=== PATIENT | male | born 1970 | race Two or more races ===

== ENCOUNTER 2023-02-16 11:38 | Inpatient (IN) | payer BC, MEDICAID ==
[~2023-02-16] VITALS: Ht 172.7 cm; Wt 91.5 kg
[~2023-02-16 11:38] MED LIST: NO HOME MEDS
[2023-02-16 12:06] LABS: BASOPHILS % (AUTO) 0.4 % (0-1); EOSINOPHILS % (AUTO) 0.3 % (0-6); HEMATOCRIT 53.5 % (42.0-52.0); LYMPHOCYTES # (AUTO) 1.7 X10'3 (1.1-4.8); LYMPHOCYTES % (AUTO) 21.2 % (21-51); MEAN CORPUSCULAR HEMOGLOBIN 29.7 PG (27.0-31.0); MEAN CORPUSCULAR HGB CONC 34.2 g/dL (33.0-36.5); MEAN CORPUSCULAR VOLUME 86.8 FL (78-98); MEAN PLATELET VOLUME 9.1 FL (7.4-10.4); MONOCYTES # (AUTO) 0.5 X10'3 (0-0.9); NEUTROPHILS # (AUTO) 5.6 X10'3 (1.8-7.7); NEUTROPHILS % (AUTO) 71.1 % (42-75); PLATELET COUNT 253 X10'3 (140-440); RED BLOOD COUNT 6.17 X10'6 (4.70-6.10); RED CELL DISTRIBUTION WIDTH 13.6 % (11.5-14.5); WHITE BLOOD COUNT 7.9 X10'3 (4.5-11.0)
[2023-02-16 12:08] LABS: HEMOGLOBIN 18.3 g/dl (14.0-17.9)
[2023-02-16 12:24] LABS: ALANINE AMINOTRANSFERASE 21 U/L (12-78); ALBUMIN 3.8 G/DL (3.4-5.0); ALBUMIN/GLOBULIN RATIO 1.1 (1.1-1.5); ALKALINE PHOSPHATASE 67 IU/L (46-116); ANION GAP 15 (8-16); ASPARTATE AMINO TRANSFERASE 17 U/L (10-37); BILIRUBIN,TOTAL 2.1 MG/DL (0.1-1.0); BLOOD UREA NITROGEN 12 MG/DL (7-18); BUN/CREATININE RATIO 18.5 (10.0-20.0); CALCIUM 9.1 MG/DL (8.5-10.1); CHLORIDE 102 MMOL/L (99-107); CREATININE 0.65 MG/DL (0.60-1.10); GLUCOSE 101 MG/DL (70-104); POTASSIUM 3.4 MMOL/L (3.5-5.1); SODIUM 137 MMOL/L (135-145); TOTAL CARBON DIOXIDE 20.1 MMOL/L (24-32); TOTAL PROTEIN 7.4 G/DL (6.4-8.2); eCRCL 129 ML/MIN; eGFR > 90 ML/MIN
[2023-02-16 12:32] LABS: ETHANOL < 10 MG/DL (<10); THYROID STIMULATING HORMONE 0.65 ulU/ml (0.34-4.50)
[2023-02-16] MEDS ORDERED: normal saline 1000ml 1,000 ML IV ONE (13:05)
[2023-02-16 14:00] LABS: BILIRUBIN,URINE MODERATE (Neg); CLARITY,URINE CLOUDY (Clear); COLOR,URINE YELLOW (Yellow); GLUCOSE, URINE NEGATIVE (Neg); KETONES,URINE >=80 mg/dl (Neg); LEUKOCYTE ESTERASE ,URINE NEGATIVE (Neg); NITRITES, URINE NEGATIVE (Neg); OCCULT BLOOD,URINE NEGATIVE (Neg); PROTEIN,URINE 100 mg/dl (Neg)
[2023-02-16 14:05] LABS: UA COLLECTION TYPE CLN CATCH MIDSTREAM
[2023-02-16 14:06] LABS: CAL OXALATE CRYSTALS FEW /HPF (NEGATIVE); MUCUS STRANDS MANY /LPF (Neg); SQUAMOUS EPITHELIAL CELL,UR FEW /LPF (FEW); TRANSITIONAL EPI CELLS,URINE FEW /HPF
[2023-02-16] MEDS: potassium chloride 10mEq ER tablet PO SCH (14:06)
[2023-02-16 14:07] LABS: BACTERIA,URINE FEW /HPF (Neg); RBC,URINE 0-2 /HPF (0-2); WBC,URINE 0-4 /HPF (0-4)
[2023-02-16 14:14] LABS: URINE AMPHETAMINE SCREEN NEGATIVE (Neg); URINE BARBITUATE SCREEN NEGATIVE (Neg); URINE BENZODIAZEPINES SCREEN NEGATIVE (Neg); URINE CANNABINOID SCREEN NEGATIVE (Neg); URINE COCAINE SCREEN NEGATIVE (Neg); URINE METHADONE SCREEN NEGATIVE (Neg); URINE OPIATE SCREEN NEGATIVE (Neg); URINE PHENCYCLIDINE SCREEN NEGATIVE (Neg)
[2023-02-17 08:32] LABS: BASOPHILS % (AUTO) 0.4 % (0-1); EOSINOPHILS # (AUTO) 0.1 X10'3 (0-0.9); EOSINOPHILS % (AUTO) 1.3 % (0-6); HEMATOCRIT 49.1 % (42.0-52.0); HEMOGLOBIN 16.7 g/dl (14.0-17.9); LYMPHOCYTES # (AUTO) 1.6 X10'3 (1.1-4.8); LYMPHOCYTES % (AUTO) 28.6 % (21-51); MEAN CORPUSCULAR HEMOGLOBIN 29.5 PG (27.0-31.0); MEAN CORPUSCULAR VOLUME 86.7 FL (78-98); MEAN PLATELET VOLUME 9.2 FL (7.4-10.4); MONOCYTES # (AUTO) 0.5 X10'3 (0-0.9); MONOCYTES % (AUTO) 8.2 % (2-12); NEUTROPHILS # (AUTO) 3.5 X10'3 (1.8-7.7); NEUTROPHILS % (AUTO) 61.5 % (42-75); PLATELET COUNT 180 X10'3 (140-440); RED BLOOD COUNT 5.66 X10'6 (4.70-6.10); RED CELL DISTRIBUTION WIDTH 13.9 % (11.5-14.5); WHITE BLOOD COUNT 5.7 X10'3 (4.5-11.0)
[2023-02-17 08:48] LABS: ALANINE AMINOTRANSFERASE 17 U/L (12-78); ALBUMIN 3.1 G/DL (3.4-5.0); ALKALINE PHOSPHATASE 53 IU/L (46-116); ANION GAP 7 (8-16); ASPARTATE AMINO TRANSFERASE 11 U/L (10-37); BILIRUBIN,TOTAL 1.2 MG/DL (0.1-1.0); BLOOD UREA NITROGEN 12 MG/DL (7-18); BUN/CREATININE RATIO 22.6 (10.0-20.0); CALCIUM 8.7 MG/DL (8.5-10.1); CHLORIDE 108 MMOL/L (99-107); CREATININE 0.53 MG/DL (0.60-1.10); GLUCOSE 104 MG/DL (70-104); POTASSIUM 3.3 MMOL/L (3.5-5.1); SODIUM 141 MMOL/L (135-145); TOTAL CARBON DIOXIDE 25.8 MMOL/L (24-32); TOTAL PROTEIN 6.3 G/DL (6.4-8.2); eCRCL 158 ML/MIN; eGFR > 90 ML/MIN
[2023-02-17] MEDS: potassium chloride 10mEq ER tablet PO SCH (13:05)
[2023-02-17] MEDS ORDERED: loperamide 2mg capsule PO PRN (14:55)
[2023-02-17] MEDS ORDERED: magnesium hydroxide 30ml (MOM) UD suspension PO PRN (14:55)
[2023-02-17] MEDS ORDERED: acetaminophen 325mg tablet PO PRN (14:55)
[2023-02-17] MEDS ORDERED: mag hydrox/Alum hydrox/simeth 30ml oral suspension PO PRN (14:55)
[2023-02-17 15:41] VITALS: RESP 17; O2SAT 94
[2023-02-17 16:04] VITALS: BP 133/80; PULSE 80; RESP 17; TEMP 98.4; O2SAT 94
[2023-02-17] MEDS ORDERED: ESCI5TAB17 PO (16:41)
[2023-02-17] MEDS ORDERED: LORA2TAB96 PO (16:41)
[2023-02-17] MEDS ORDERED: TRAZ-256 PO (16:41)
[2023-02-17] MEDS: LORazepam 0.5 MG tablet PO PRN (17:49)
[2023-02-17 19:00] VITALS: RESP 18; O2SAT 97
[2023-02-17] MEDS ORDERED: potassium Cl 20 mEq SR tablet PO PRN (19:40)
[2023-02-17] MEDS ORDERED: potassium Cl 40MEQ/1/2NS 520ml 520 ML IV PRN ×2 (19:40)
[2023-02-17 20:00] VITALS: BP 127/88; PULSE 77; RESP 18; TEMP 97.7; O2SAT 97
[2023-02-17] MEDS: K and/or MAG REPLACEMENT MC SCH (21:48)
[2023-02-17] MEDS: potassium Cl 20 mEq SR tablet PO PRN (21:48)
[2023-02-17] MEDS: traZODone 50mg tablet PO PRN (21:48)
[2023-02-18] MEDS: potassium Cl 20 mEq SR tablet PO PRN (04:55)
[2023-02-18 07:30] VITALS: BP 107/72; PULSE 64; RESP 20; TEMP 97.7; O2SAT 95
[2023-02-18 07:54] LABS: HEMOGLOBIN A1C 5.3 % (4.5-6.2)
[2023-02-18] MEDS: K and/or MAG REPLACEMENT MC SCH ×2 (08:00→20:00)
[2023-02-18 08:02] LABS: ALBUMIN 2.9 G/DL (3.4-5.0); ANION GAP 6 (8-16); BLOOD UREA NITROGEN 12 MG/DL (7-18); BUN/CREATININE RATIO 22.2 (10.0-20.0); CALCIUM 8.7 MG/DL (8.5-10.1); CHLORIDE 107 MMOL/L (99-107); CREATININE 0.54 MG/DL (0.60-1.10); GLUCOSE 99 MG/DL (70-104); SODIUM 139 MMOL/L (135-145); THYROID STIMULATING HORMONE 0.73 ulU/ml (0.34-4.50); TOTAL CARBON DIOXIDE 25.6 MMOL/L (24-32); eCRCL 155 ML/MIN; eGFR > 90 ML/MIN
[2023-02-18] MEDS: ESCITALOPRAM OXALATE 5 MG TABLET PO SCH (08:38)
[2023-02-18] MEDS: LORazepam 0.5 MG tablet PO PRN (13:46)
[2023-02-18 19:00] VITALS: RESP 16; O2SAT 95
[2023-02-18 19:47] VITALS: BP 108/72; PULSE 77; RESP 16; TEMP 97.7; O2SAT 95
[2023-02-18] MEDS: traZODone 50mg tablet PO PRN (20:53)
[2023-02-19 07:00] VITALS: RESP 12; O2SAT 94
[2023-02-19] MEDS: ESCITALOPRAM OXALATE 5 MG TABLET PO SCH (07:57)
[2023-02-19 08:00] VITALS: BP 120/80; PULSE 67; RESP 12; TEMP 97.6; O2SAT 94
[2023-02-19] MEDS: K and/or MAG REPLACEMENT MC SCH ×2 (08:00→19:47)
[2023-02-19] MEDS: LORazepam 0.5 MG tablet PO PRN ×2 (13:47→20:17)
[2023-02-19 20:00] VITALS: BP 111/74; PULSE 71; RESP 18; O2SAT 97
[2023-02-19] MEDS: traZODone 50mg tablet PO PRN (20:17)
[2023-02-20 07:28] VITALS: BP 107/72; PULSE 66; RESP 16; TEMP 97.9; O2SAT 95
[2023-02-20] MEDS: K and/or MAG REPLACEMENT MC SCH ×2 (08:00→20:58)
[2023-02-20] MEDS: ESCITALOPRAM OXALATE 5 MG TABLET PO SCH (08:01)
[2023-02-20] MEDS: LORazepam 1 MG tablet PO SCH ×2 (16:19→21:04)
[2023-02-20 19:00] VITALS: BP 111/73; PULSE 80; RESP 18; TEMP 98.4; O2SAT 96
[2023-02-20] MEDS: traZODone 50mg tablet PO PRN (21:04)
[2023-02-21] MEDS: LORazepam 1 MG tablet PO SCH ×3 (07:37→20:05)
[2023-02-21] MEDS: ESCITALOPRAM OXALATE 5 MG TABLET PO SCH (07:37)
[2023-02-21] MEDS: K and/or MAG REPLACEMENT MC SCH ×2 (08:00→20:00)
[2023-02-21 08:26] VITALS: BP 117/74; PULSE 70; RESP 16; TEMP 98.3; O2SAT 98
[2023-02-21 19:00] VITALS: RESP 20; O2SAT 96
[2023-02-21 20:00] VITALS: BP 103/69; PULSE 80; RESP 20; TEMP 97.8; O2SAT 96
[2023-02-21] MEDS: traZODone 50mg tablet PO PRN (20:05)
[2023-02-22] MEDS: ESCITALOPRAM OXALATE 5 MG TABLET PO SCH (07:32)
[2023-02-22] MEDS: K and/or MAG REPLACEMENT MC SCH ×2 (07:32→20:00)
[2023-02-22] MEDS: LORazepam 1 MG tablet PO SCH ×3 (07:32→19:00)
[2023-02-22 08:00] VITALS: BP 105/69; PULSE 77; RESP 16; TEMP 98; O2SAT 92
[2023-02-22 19:00] VITALS: BP 113/74; PULSE 81; RESP 14; TEMP 98; O2SAT 97
[2023-02-22] MEDS: LORazepam 0.5 MG tablet PO PRN (20:54)
[2023-02-22] MEDS: traZODone 50mg tablet PO PRN (20:56)
[2023-02-23 07:00] VITALS: RESP 16; O2SAT 94
[2023-02-23 08:00] VITALS: BP 110/71; PULSE 63; RESP 16; TEMP 98.2; O2SAT 94
[2023-02-23] MEDS: K and/or MAG REPLACEMENT MC SCH ×2 (08:00→19:37)
[2023-02-23] MEDS: LORazepam 1 MG tablet PO SCH ×3 (08:13→18:40)
[2023-02-23] MEDS: ESCITALOPRAM OXALATE 5 MG TABLET PO SCH (08:13)
[2023-02-23 19:00] VITALS: RESP 16; O2SAT 95
[2023-02-23 19:19] VITALS: BP 98/55; PULSE 80; RESP 16; TEMP 98.5; O2SAT 95
[2023-02-23] MEDS: traZODone 50mg tablet PO PRN (20:37)
[2023-02-24 07:00] VITALS: RESP 16; O2SAT 94
[2023-02-24 08:00] VITALS: BP 122/85; PULSE 70; RESP 16; TEMP 98.5; O2SAT 99
[2023-02-24] MEDS: LORazepam 1 MG tablet PO SCH ×3 (08:03→19:06)
[2023-02-24] MEDS: ESCITALOPRAM OXALATE 5 MG TABLET PO SCH (08:04)
[2023-02-24] MEDS: K and/or MAG REPLACEMENT MC SCH ×3 (08:07→19:14)
[2023-02-24] MEDS: traZODone 50mg tablet PO PRN ×2 (19:25→23:19)
[2023-02-24 19:29] VITALS: BP 106/61; PULSE 74; RESP 16; TEMP 97.9; O2SAT 97
[2023-02-25 07:00] VITALS: RESP 16; O2SAT 98
[2023-02-25 08:00] VITALS: BP 101/65; PULSE 72; RESP 16; TEMP 97.5; O2SAT 98
[2023-02-25] MEDS: K and/or MAG REPLACEMENT MC SCH ×2 (08:00→19:50)
[2023-02-25] MEDS: LORazepam 1 MG tablet PO SCH ×3 (08:42→19:50)
[2023-02-25] MEDS: ESCITALOPRAM OXALATE 5 MG TABLET PO SCH (08:42)
[2023-02-25 19:43] VITALS: BP 121/87; PULSE 82; RESP 18; TEMP 98.7; O2SAT 98
[2023-02-25] MEDS: traZODone 50mg tablet PO SCH (19:49)
[2023-02-25 20:00] VITALS: RESP 18; O2SAT 98
[2023-02-26 07:00] VITALS: RESP 16; O2SAT 95
[2023-02-26 08:00] VITALS: BP 108/63; PULSE 72; RESP 16; TEMP 98.1; O2SAT 95
[2023-02-26] MEDS: LORazepam 1 MG tablet PO SCH ×3 (08:25→19:00)
[2023-02-26] MEDS: ESCITALOPRAM OXALATE 5 MG TABLET PO SCH (08:25)
[2023-02-26 11:39] LABS: POTASSIUM 3.9 MMOL/L (3.5-5.1)
[2023-02-26 19:00] VITALS: RESP 16; O2SAT 95
[2023-02-26 19:13] VITALS: BP 106/64; PULSE 71; RESP 16; TEMP 98; O2SAT 95
[2023-02-26] MEDS: traZODone 50mg tablet PO SCH (20:05)
[2023-02-27 07:00] VITALS: RESP 16; O2SAT 96
[2023-02-27 08:00] VITALS: BP 98/60; PULSE 72; RESP 16; TEMP 98.2; O2SAT 96
[2023-02-27] MEDS: LORazepam 1 MG tablet PO SCH ×3 (08:51→19:17)
[2023-02-27] MEDS: ESCITALOPRAM OXALATE 5 MG TABLET PO SCH (08:51)
[2023-02-27 19:00] VITALS: RESP 14
[2023-02-27 20:00] VITALS: PULSE 90; RESP 14; TEMP 99; O2SAT 14
[2023-02-27] MEDS: traZODone 50mg tablet PO SCH (20:51)
[2023-02-27] MEDS: LORazepam 0.5 MG tablet PO PRN (23:04)
[2023-02-28 07:00] VITALS: RESP 12; O2SAT 92
[2023-02-28 07:36] VITALS: BP 114/75; PULSE 77; RESP 12; TEMP 98; O2SAT 92
[2023-02-28] MEDS: LORazepam 1 MG tablet PO SCH ×3 (08:12→20:14)
[2023-02-28] MEDS: ESCITALOPRAM OXALATE 5 MG TABLET PO SCH (08:12)
[2023-02-28 19:00] VITALS: BP 114/70; PULSE 74; RESP 18; TEMP 98.3; O2SAT 95; O2SAT 98
[2023-02-28] MEDS: OLANZapine 2.5MG tablet PO SCH (20:15)
[2023-02-28] MEDS: traZODone 50mg tablet PO SCH (20:15)
[2023-03-01 06:55] VITALS: BP 128/71; PULSE 66; RESP 14; TEMP 97.3; O2SAT 97
[2023-03-01 07:00] VITALS: RESP 14; O2SAT 97
[2023-03-01 08:00] VITALS: BP 128/71; PULSE 66; RESP 14; TEMP 97.3; O2SAT 97
[2023-03-01] MEDS: LORazepam 1 MG tablet PO SCH ×3 (08:18→19:51)
[2023-03-01] MEDS: ESCITALOPRAM OXALATE 5 MG TABLET PO SCH (08:19)
[2023-03-01 19:00] VITALS: RESP 14; O2SAT 95
[2023-03-01 19:59] VITALS: BP 116/72; PULSE 74; RESP 14; TEMP 98.7; O2SAT 95
[2023-03-01] MEDS: traZODone 50mg tablet PO SCH (20:15)
[2023-03-01] MEDS: OLANZapine 2.5MG tablet PO SCH (20:15)
[2023-03-02] MEDS ORDERED: traZODone 50mg tablet PO ONE ×2 (00:05→00:06)
[2023-03-02 07:00] VITALS: RESP 16; O2SAT 95
[2023-03-02] MEDS: ESCITALOPRAM OXALATE 5 MG TABLET PO SCH (07:57)
[2023-03-02] MEDS: LORazepam 1 MG tablet PO SCH ×3 (07:57→19:55)
[2023-03-02 08:00] VITALS: BP 142/66; PULSE 72; RESP 16; TEMP 98.1; O2SAT 95
[2023-03-02 19:00] VITALS: RESP 16; O2SAT 93
[2023-03-02] MEDS: olanzapine 10mg tablet PO SCH (19:55)
[2023-03-02] MEDS: traZODone 50mg tablet PO SCH (19:56)
[2023-03-02 20:00] VITALS: BP 119/73; PULSE 72; RESP 16; TEMP 98; O2SAT 93
[2023-03-03 07:00] VITALS: RESP 16; O2SAT 95
[2023-03-03 07:28] VITALS: BP 107/66; PULSE 66; RESP 14; TEMP 98.3; O2SAT 97
[2023-03-03] MEDS: ESCITALOPRAM OXALATE 5 MG TABLET PO SCH (07:43)
[2023-03-03] MEDS: LORazepam 1 MG tablet PO SCH ×3 (07:43→19:22)
[2023-03-03 19:00] VITALS: RESP 16; O2SAT 95
[2023-03-03] MEDS: traZODone 50mg tablet PO SCH (19:22)
[2023-03-03] MEDS: olanzapine 10mg tablet PO SCH (19:22)
[2023-03-03 19:39] VITALS: BP 108/69; PULSE 78; RESP 16; TEMP 98.8; O2SAT 95
[2023-03-04 07:00] VITALS: RESP 16; O2SAT 96
[2023-03-04 07:34] VITALS: BP 107/70; PULSE 80; RESP 16; TEMP 98.2; O2SAT 96
[2023-03-04] MEDS: ESCITALOPRAM OXALATE 5 MG TABLET PO SCH (08:02)
[2023-03-04] MEDS: LORazepam 1 MG tablet PO SCH ×3 (08:02→19:48)
[2023-03-04 19:00] VITALS: RESP 16; O2SAT 95
[2023-03-04] MEDS: olanzapine 10mg tablet PO SCH (19:48)
[2023-03-04] MEDS: traZODone 50mg tablet PO SCH (19:49)
[2023-03-04 20:00] VITALS: BP 107/69; PULSE 78; RESP 16; TEMP 97.6; O2SAT 95
[2023-03-05 07:30] VITALS: BP 106/67; PULSE 78; RESP 12; TEMP 97.8; O2SAT 96
[2023-03-05] MEDS: ESCITALOPRAM OXALATE 5 MG TABLET PO SCH (08:14)
[2023-03-05] MEDS: LORazepam 1 MG tablet PO SCH ×3 (08:14→19:49)
[2023-03-05 19:00] VITALS: BP 116/76; PULSE 76; RESP 16; TEMP 98.9; O2SAT 95
[2023-03-05] MEDS: olanzapine 10mg tablet PO SCH (19:49)
[2023-03-05] MEDS: traZODone 50mg tablet PO SCH (19:49)
[2023-03-06 07:30] VITALS: RESP 12; O2SAT 98
[2023-03-06] MEDS: ESCITALOPRAM OXALATE 5 MG TABLET PO SCH (07:59)
[2023-03-06] MEDS: LORazepam 1 MG tablet PO SCH ×3 (07:59→19:06)
[2023-03-06 08:00] VITALS: BP 111/68; PULSE 76; RESP 12; TEMP 98; O2SAT 96
[2023-03-06 19:30] VITALS: BP 112/72; PULSE 95; RESP 14; TEMP 99.2; O2SAT 100; O2SAT 96
[2023-03-06] MEDS: traZODone 50mg tablet PO SCH (20:23)
[2023-03-06] MEDS: olanzapine 10mg tablet PO SCH (20:23)
[2023-03-07 07:00] VITALS: RESP 12; O2SAT 98
[2023-03-07 08:00] VITALS: BP 103/65; PULSE 81; RESP 14; TEMP 98.3; O2SAT 97
[2023-03-07] MEDS: venlafaxine XR 75mg capsule (Q24H) PO SCH (08:34)
[2023-03-07] MEDS: ESCITALOPRAM OXALATE 5 MG TABLET PO SCH (08:34)
[2023-03-07] MEDS: LORazepam 1 MG tablet PO SCH ×3 (08:37→20:42)
[2023-03-07 19:00] VITALS: BP 116/71; PULSE 87; RESP 16; TEMP 98.6; O2SAT 94
[2023-03-07] MEDS: olanzapine 10mg tablet PO SCH (20:41)
[2023-03-07] MEDS: traZODone 50mg tablet PO SCH (20:41)
[2023-03-08 07:00] VITALS: RESP 14; O2SAT 94
[2023-03-08 08:00] VITALS: BP 105/60; PULSE 76; RESP 14; TEMP 98.5; O2SAT 94
[2023-03-08] MEDS: LORazepam 1 MG tablet PO SCH ×3 (08:16→20:05)
[2023-03-08] MEDS: ESCITALOPRAM OXALATE 5 MG TABLET PO SCH (08:16)
[2023-03-08] MEDS: venlafaxine XR 75mg capsule (Q24H) PO SCH (08:16)
[2023-03-08 19:00] VITALS: RESP 16; O2SAT 98
[2023-03-08 20:00] VITALS: BP 121/92; PULSE 89; RESP 16; TEMP 98.7; O2SAT 98
[2023-03-08] MEDS: traZODone 50mg tablet PO SCH (20:05)
[2023-03-08] MEDS: olanzapine 10mg tablet PO SCH (20:05)
[2023-03-09 07:00] VITALS: RESP 16; O2SAT 96
[2023-03-09 08:00] VITALS: BP 99/60; PULSE 75; RESP 16; TEMP 98.7; O2SAT 96
[2023-03-09] MEDS ORDERED: ESCITALOPRAM OXALATE 5 MG TABLET PO SCH (08:00)
[2023-03-09] MEDS: LORazepam 1 MG tablet PO SCH ×3 (08:29→19:43)
[2023-03-09] MEDS: venlafaxine XR 75mg capsule (Q24H) PO SCH (08:29)
[2023-03-09 19:41] VITALS: BP 114/82; PULSE 102; RESP 16; TEMP 97.1; O2SAT 99
[2023-03-09 19:50] VITALS: RESP 16; O2SAT 99
[2023-03-09] MEDS: traZODone 50mg tablet PO SCH (20:08)
[2023-03-09] MEDS: olanzapine 10mg tablet PO SCH (20:08)
[2023-03-10 07:00] VITALS: RESP 18; O2SAT 96
[2023-03-10] MEDS ORDERED: ESCITALOPRAM 10 mg tablet 10 MG TABLET PO SCH (07:53)
[2023-03-10 08:00] VITALS: BP 100/68; PULSE 71; RESP 18; TEMP 96.9; O2SAT 96
[2023-03-10] MEDS: venlafaxine XR 75mg capsule (Q24H) PO SCH (08:12)
[2023-03-10] MEDS: LORazepam 1 MG tablet PO SCH ×3 (08:12→20:07)
[2023-03-10] MEDS: ESCITALOPRAM 10 mg tablet 10 MG TABLET PO SCH (08:14)
[2023-03-10 19:20] VITALS: RESP 16
[2023-03-10 19:30] VITALS: BP 115/79; PULSE 77; RESP 16; TEMP 98.4; O2SAT 96
[2023-03-10] MEDS: olanzapine 10mg tablet PO SCH (20:08)
[2023-03-10] MEDS: traZODone 50mg tablet PO SCH (20:08)
[2023-03-11 07:00] VITALS: BP 107/66; PULSE 77; RESP 14; TEMP 98.3; O2SAT 95
[2023-03-11] MEDS: venlafaxine XR 75mg capsule (Q24H) PO SCH (08:34)
[2023-03-11] MEDS: LORazepam 1 MG tablet PO SCH ×3 (08:34→20:25)
[2023-03-11] MEDS: ESCITALOPRAM 10 mg tablet 10 MG TABLET PO SCH (08:35)
[2023-03-11 19:40] VITALS: BP 125/79; PULSE 101; RESP 16; TEMP 98.1; O2SAT 98
[2023-03-11] MEDS: olanzapine 10mg tablet PO SCH (20:25)
[2023-03-11] MEDS: traZODone 50mg tablet PO SCH (20:25)
[2023-03-12 07:00] VITALS: RESP 16; O2SAT 95
[2023-03-12 08:00] VITALS: BP 107/60; PULSE 74; RESP 16; TEMP 98.4; O2SAT 95
[2023-03-12] MEDS: venlafaxine XR 75mg capsule (Q24H) PO SCH (08:23)
[2023-03-12] MEDS: ESCITALOPRAM 10 mg tablet 10 MG TABLET PO SCH (08:23)
[2023-03-12] MEDS: LORazepam 1 MG tablet PO SCH ×3 (08:23→19:16)
[2023-03-12 20:00] VITALS: BP 109/85; PULSE 113; RESP 16; TEMP 98.9; O2SAT 98
[2023-03-12] MEDS: olanzapine 10mg tablet PO SCH (20:52)
[2023-03-12] MEDS: traZODone 50mg tablet PO SCH (20:52)
[2023-03-13 07:30] VITALS: RESP 16; O2SAT 97
[2023-03-13 07:50] VITALS: BP 112/69; PULSE 64; RESP 16; TEMP 99.5
[2023-03-13] MEDS ORDERED: LORazepam 1 MG tablet PO SCH (08:00)
[2023-03-13] MEDS: venlafaxine XR 75mg capsule (Q24H) PO SCH (08:31)
[2023-03-13] MEDS: LORazepam 0.5 MG tablet PO SCH ×2 (13:07→20:28)
[2023-03-13 19:00] VITALS: RESP 16; O2SAT 81
[2023-03-13 20:00] VITALS: BP 122/82; PULSE 81; RESP 16; TEMP 98.9
[2023-03-13] MEDS: traZODone 50mg tablet PO SCH (20:29)
[2023-03-13] MEDS: olanzapine 10mg tablet PO SCH (20:29)
[2023-03-14 07:30] VITALS: BP 130/92; PULSE 100; RESP 14; TEMP 98.3; O2SAT 96
[2023-03-14] MEDS: LORazepam 0.5 MG tablet PO SCH ×3 (08:09→20:06)
[2023-03-14] MEDS: venlafaxine XR 75mg capsule (Q24H) PO SCH (08:10)
[2023-03-14] MEDS: LORazepam 0.5 MG tablet PO PRN (16:18)
[2023-03-14 19:00] VITALS: RESP 24; O2SAT 98
[2023-03-14 20:00] VITALS: BP 128/93; PULSE 103; RESP 14; TEMP 98.7; O2SAT 96
[2023-03-14] MEDS: olanzapine 10mg tablet PO SCH (20:03)
[2023-03-14] MEDS: traZODone 50mg tablet PO SCH (20:04)
[2023-03-15 07:00] VITALS: RESP 12; O2SAT 94
[2023-03-15] MEDS: venlafaxine XR 75mg capsule (Q24H) PO SCH (07:51)
[2023-03-15] MEDS: LORazepam 0.5 MG tablet PO SCH ×3 (07:51→20:51)
[2023-03-15 08:00] VITALS: BP 122/73; PULSE 87; RESP 12; TEMP 98.7; O2SAT 94
[2023-03-15] MEDS: LORazepam 0.5 MG tablet PO PRN (12:15)
[2023-03-15 19:00] VITALS: BP 120/73; PULSE 84; RESP 14; TEMP 99.3; O2SAT 94
[2023-03-15] MEDS: traZODone 50mg tablet PO SCH (20:52)
[2023-03-15] MEDS: olanzapine 10mg tablet PO SCH (20:52)
[2023-03-16 07:00] VITALS: RESP 16; O2SAT 93
[2023-03-16 08:00] VITALS: BP 93/61; PULSE 83; RESP 16; TEMP 97.8; O2SAT 93
[2023-03-16] MEDS: venlafaxine XR 37.5mg cap (Q24H) PO SCH (08:04)
[2023-03-16] MEDS: LORazepam 0.5 MG tablet PO SCH ×3 (08:04→19:42)
[2023-03-16] MEDS: LORazepam 0.5 MG tablet PO PRN (10:01)
[2023-03-16] MEDS ORDERED: LORazepam 0.5 MG tablet PO ONE (14:35)
[2023-03-16 19:00] VITALS: RESP 18; O2SAT 96
[2023-03-16 20:00] VITALS: BP 123/8; PULSE 91; RESP 18; TEMP 98.5
[2023-03-16] MEDS: olanzapine 10mg tablet PO SCH (20:32)
[2023-03-16] MEDS: traZODone 50mg tablet PO SCH (20:32)
[2023-03-17 07:00] VITALS: RESP 18; O2SAT 96
[2023-03-17] MEDS: LORazepam 0.5 MG tablet PO SCH ×3 (07:59→20:05)
[2023-03-17] MEDS: venlafaxine XR 37.5mg cap (Q24H) PO SCH (07:59)
[2023-03-17 08:00] VITALS: BP 107/64; PULSE 78; RESP 18; TEMP 98; O2SAT 96
[2023-03-17] MEDS ORDERED: venlafaxine XR 37.5mg cap (Q24H) PO STA (11:06)
[2023-03-17] MEDS: LORazepam 0.5 MG tablet PO PRN (11:34)
[2023-03-17 19:00] VITALS: BP 134/97; PULSE 99; RESP 18; TEMP 98.3; O2SAT 94
[2023-03-17] MEDS: olanzapine 10mg tablet PO SCH (20:05)
[2023-03-17] MEDS: traZODone 50mg tablet PO SCH (20:06)
[2023-03-18 07:00] VITALS: RESP 16; O2SAT 96
[2023-03-18 07:32] VITALS: BP 112/70; PULSE 78; RESP 16; TEMP 98.6; O2SAT 96
[2023-03-18] MEDS: LORazepam 0.5 MG tablet PO SCH ×3 (07:58→19:54)
[2023-03-18] MEDS: venlafaxine XR 75mg capsule (Q24H) PO SCH (07:59)
[2023-03-18 19:00] VITALS: RESP 16; O2SAT 94
[2023-03-18 19:18] VITALS: BP 122/79; PULSE 78; RESP 16; TEMP 98.8; O2SAT 94
[2023-03-18] MEDS: OLANZAPINE 5 MG TABLET PO SCH (19:54)
[2023-03-18] MEDS: traZODone 50mg tablet PO SCH (19:55)
[2023-03-19 07:00] VITALS: RESP 16; O2SAT 93
[2023-03-19] MEDS: LORazepam 0.5 MG tablet PO SCH ×3 (07:41→20:02)
[2023-03-19] MEDS: venlafaxine XR 75mg capsule (Q24H) PO SCH (07:41)
[2023-03-19 08:00] VITALS: BP 108/59; PULSE 71; RESP 16; TEMP 98.5; O2SAT 93
[2023-03-19] MEDS: LORazepam 0.5 MG tablet PO PRN (08:13)
[2023-03-19 19:15] VITALS: BP 128/90; PULSE 78; RESP 16; TEMP 98.3; O2SAT 96
[2023-03-19] MEDS: OLANZAPINE 5 MG TABLET PO SCH (20:01)
[2023-03-19] MEDS: traZODone 50mg tablet PO SCH (20:01)
[2023-03-20 07:00] VITALS: RESP 16; O2SAT 93
[2023-03-20] MEDS: LORazepam 0.5 MG tablet PO SCH ×3 (07:52→19:00)
[2023-03-20] MEDS: venlafaxine XR 75mg capsule (Q24H) PO SCH (07:52)
[2023-03-20 08:14] VITALS: BP 105/67; PULSE 74; RESP 14; TEMP 98.5; O2SAT 93
[2023-03-20 19:30] VITALS: BP 125/96; PULSE 94; RESP 14; TEMP 98.3; O2SAT 94
[2023-03-20] MEDS: OLANZAPINE 5 MG TABLET PO SCH (20:14)
[2023-03-20] MEDS: traZODone 50mg tablet PO SCH (20:14)
[2023-03-21] MEDS: LORazepam 0.5 MG tablet PO SCH ×3 (07:48→18:53)
[2023-03-21] MEDS: venlafaxine XR 75mg capsule (Q24H) PO SCH (07:49)
[2023-03-21 08:00] VITALS: BP 114/75; PULSE 75; RESP 12; TEMP 97.8; O2SAT 94
[2023-03-21 19:30] VITALS: BP 122/76; PULSE 93; RESP 16; TEMP 98.8; O2SAT 94
[2023-03-21] MEDS: traZODone 50mg tablet PO SCH (20:19)
[2023-03-21] MEDS: OLANZAPINE 5 MG TABLET PO SCH (20:19)
[2023-03-22 08:00] VITALS: BP 123/78; PULSE 76; RESP 18; TEMP 97.5; O2SAT 95
[2023-03-22] MEDS: LORazepam 0.5 MG tablet PO SCH ×3 (08:22→19:56)
[2023-03-22] MEDS: venlafaxine XR 75mg capsule (Q24H) PO SCH (08:22)
[2023-03-22 19:00] VITALS: RESP 17; O2SAT 95
[2023-03-22] MEDS: OLANZAPINE 5 MG TABLET PO SCH (19:56)
[2023-03-22] MEDS: traZODone 50mg tablet PO SCH (19:56)
[2023-03-22 20:00] VITALS: BP 128/75; PULSE 78; RESP 17; TEMP 98.4; O2SAT 95
[2023-03-23 07:00] VITALS: RESP 14; O2SAT 95
[2023-03-23] MEDS: venlafaxine XR 75mg capsule (Q24H) PO SCH (07:33)
[2023-03-23] MEDS: LORazepam 0.5 MG tablet PO SCH ×3 (07:34→20:14)
[2023-03-23 08:00] VITALS: PULSE 75; RESP 14; TEMP 98.6; O2SAT 95
[2023-03-23] MEDS: LORazepam 0.5 MG tablet PO PRN (11:29)
[2023-03-23 19:00] VITALS: RESP 14; O2SAT 95
[2023-03-23 20:00] VITALS: BP 113/72; PULSE 79; RESP 14; TEMP 98.4; O2SAT 95
[2023-03-23] MEDS: traZODone 50mg tablet PO SCH (20:14)
[2023-03-23] MEDS: OLANZAPINE 5 MG TABLET PO SCH (20:14)
[2023-03-24 07:00] VITALS: RESP 14; O2SAT 93
[2023-03-24] MEDS: venlafaxine XR 75mg capsule (Q24H) PO SCH (07:50)
[2023-03-24] MEDS: LORazepam 0.5 MG tablet PO SCH ×3 (07:50→20:16)
[2023-03-24 08:03] VITALS: BP 104/62; PULSE 77; RESP 14; TEMP 98.1; O2SAT 93
[2023-03-24 19:00] VITALS: RESP 18; O2SAT 95
[2023-03-24 20:00] VITALS: BP 135/93; PULSE 112; RESP 18; TEMP 97.8; O2SAT 95
[2023-03-24] MEDS: OLANZAPINE 5 MG TABLET PO SCH (20:16)
[2023-03-24] MEDS: traZODone 50mg tablet PO SCH (20:17)
[2023-03-24] MEDS ORDERED: traZODone 50mg tablet PO SCH (21:00)
[2023-03-25 07:00] VITALS: RESP 16; O2SAT 93
[2023-03-25] MEDS: LORazepam 0.5 MG tablet PO SCH ×3 (07:21→20:08)
[2023-03-25] MEDS: venlafaxine XR 75mg capsule (Q24H) PO SCH (07:22)
[2023-03-25 08:00] VITALS: BP 107/71; PULSE 66; RESP 16; TEMP 97.8; O2SAT 93
[2023-03-25 19:49] VITALS: BP 136/93; PULSE 115; RESP 18; TEMP 98.3; O2SAT 95
[2023-03-25 19:50] VITALS: RESP 18; O2SAT 95
[2023-03-25] MEDS: OLANZAPINE 5 MG TABLET PO SCH (20:09)
[2023-03-25] MEDS: traZODone 50mg tablet PO SCH (20:09)
[2023-03-26 08:00] VITALS: BP 98/64; PULSE 77; RESP 12; TEMP 98.2; O2SAT 95
[2023-03-26] MEDS: LORazepam 0.5 MG tablet PO SCH ×3 (08:25→20:34)
[2023-03-26] MEDS: venlafaxine XR 75mg capsule (Q24H) PO SCH (08:25)
[2023-03-26 19:00] VITALS: BP 125/88; PULSE 102; RESP 18; TEMP 97.5; O2SAT 96
[2023-03-26] MEDS: OLANZAPINE 5 MG TABLET PO SCH (20:34)
[2023-03-26] MEDS: traZODone 50mg tablet PO SCH (20:34)
[2023-03-26 21:00] VITALS: PULSE 86
[2023-03-27] MEDS: LORazepam 0.5 MG tablet PO SCH ×3 (07:52→20:31)
[2023-03-27] MEDS: venlafaxine XR 75mg capsule (Q24H) PO SCH (07:52)
[2023-03-27 09:12] VITALS: BP 113/62; PULSE 78; RESP 16; TEMP 98.6; O2SAT 94
[2023-03-27 19:37] VITALS: BP 141/96; PULSE 89; RESP 16; TEMP 99.2; O2SAT 97
[2023-03-27] MEDS: traZODone 50mg tablet PO SCH (20:30)
[2023-03-27] MEDS: OLANZAPINE 5 MG TABLET PO SCH (20:30)
[2023-03-28] MEDS: venlafaxine XR 75mg capsule (Q24H) PO SCH (07:47)
[2023-03-28] MEDS: LORazepam 0.5 MG tablet PO SCH ×3 (07:47→20:05)
[2023-03-28 08:00] VITALS: BP 107/67; PULSE 87; RESP 16; TEMP 98.4; O2SAT 97
[2023-03-28 19:35] VITALS: BP 134/81; PULSE 94; RESP 16; TEMP 98.5; O2SAT 96
[2023-03-28] MEDS: OLANZAPINE 5 MG TABLET PO SCH (20:05)
[2023-03-28] MEDS: traZODone 50mg tablet PO SCH (20:05)
[2023-03-29 08:00] VITALS: BP 107/67; PULSE 69; RESP 12; TEMP 98.7; O2SAT 94
[2023-03-29] MEDS: venlafaxine XR 75mg capsule (Q24H) PO SCH (08:08)
[2023-03-29] MEDS: LORazepam 0.5 MG tablet PO SCH ×3 (08:09→20:05)
[2023-03-29] MEDS: LORazepam 0.5 MG tablet PO PRN (11:47)
[2023-03-29 19:00] VITALS: BP 141/99; PULSE 99; RESP 17; TEMP 97.3; O2SAT 99
[2023-03-29] MEDS: OLANZAPINE 5 MG TABLET PO SCH (20:05)
[2023-03-29] MEDS: traZODone 50mg tablet PO SCH (20:06)
[2023-03-30 07:00] VITALS: RESP 14; O2SAT 95
[2023-03-30 08:00] VITALS: BP 113/71; PULSE 72; RESP 14; TEMP 97.9; O2SAT 95
[2023-03-30] MEDS: venlafaxine XR 75mg capsule (Q24H) PO SCH (08:14)
[2023-03-30] MEDS: LORazepam 0.5 MG tablet PO SCH ×3 (08:16→19:22)
[2023-03-30 19:00] VITALS: RESP 17; O2SAT 97
[2023-03-30 19:11] VITALS: BP 142/94; PULSE 86; RESP 17; TEMP 97.2; O2SAT 97
[2023-03-30] MEDS: OLANZAPINE 5 MG TABLET PO SCH (20:07)
[2023-03-30] MEDS: traZODone 50mg tablet PO SCH (20:07)
[2023-03-31 07:00] VITALS: RESP 14; O2SAT 94
[2023-03-31 07:53] VITALS: BP 115/73; PULSE 76; RESP 14; TEMP 98.8; O2SAT 94
[2023-03-31] MEDS: LORazepam 0.5 MG tablet PO SCH ×3 (08:10→19:00)
[2023-03-31] MEDS: venlafaxine XR 75mg capsule (Q24H) PO SCH (08:10)
[2023-03-31 19:48] VITALS: BP 130/85; PULSE 116; RESP 18; TEMP 98.8; O2SAT 96
[2023-03-31] MEDS: OLANZAPINE 5 MG TABLET PO SCH (20:25)
[2023-03-31] MEDS: traZODone 50mg tablet PO SCH (20:25)
[2023-04-01 07:00] VITALS: RESP 14; O2SAT 98
[2023-04-01] MEDS: venlafaxine XR 75mg capsule (Q24H) PO SCH (07:37)
[2023-04-01] MEDS: LORazepam 0.5 MG tablet PO SCH ×3 (07:37→19:12)
[2023-04-01 08:00] VITALS: BP 122/74; PULSE 100; RESP 14; TEMP 98.4; O2SAT 95
[2023-04-01] MEDS: acetaminophen 325mg tablet PO PRN (09:26)
[2023-04-01 20:00] VITALS: BP 127/76; PULSE 88; RESP 16; TEMP 99.7; O2SAT 95
[2023-04-01] MEDS: traZODone 50mg tablet PO SCH (20:03)
[2023-04-01] MEDS: OLANZAPINE 5 MG TABLET PO SCH (20:07)
[2023-04-02 07:00] VITALS: RESP 12; O2SAT 95
[2023-04-02] MEDS: LORazepam 0.5 MG tablet PO SCH ×3 (07:37→19:03)
[2023-04-02] MEDS: venlafaxine XR 75mg capsule (Q24H) PO SCH (07:37)
[2023-04-02 08:00] VITALS: BP 122/81; PULSE 92; RESP 12; TEMP 98.8; O2SAT 95
[2023-04-02] MEDS: acetaminophen 325mg tablet PO PRN (14:34)
[2023-04-02 19:54] VITALS: BP 121/79; PULSE 91; RESP 14; TEMP 98; O2SAT 95
[2023-04-02] MEDS: traZODone 50mg tablet PO SCH (20:10)
[2023-04-02] MEDS: OLANZAPINE 5 MG TABLET PO SCH (20:11)
[2023-04-03 07:03] VITALS: RESP 12; O2SAT 95
[2023-04-03] MEDS: LORazepam 0.5 MG tablet PO SCH ×3 (07:47→19:30)
[2023-04-03] MEDS: venlafaxine XR 75mg capsule (Q24H) PO SCH (07:47)
[2023-04-03 08:53] VITALS: BP 112/66; PULSE 104; RESP 16; TEMP 98.2; O2SAT 94
[2023-04-03 19:30] VITALS: BP 105/68; PULSE 95; RESP 16; TEMP 98.8; O2SAT 95
[2023-04-03] MEDS: traZODone 50mg tablet PO SCH (20:15)
[2023-04-03] MEDS: OLANZAPINE 5 MG TABLET PO SCH (20:15)
[2023-04-04 07:21] VITALS: RESP 12; O2SAT 95
[2023-04-04 08:00] VITALS: BP 117/80; PULSE 98; RESP 16; TEMP 97.7; O2SAT 94
[2023-04-04] MEDS: venlafaxine XR 75mg capsule (Q24H) PO SCH (08:46)
[2023-04-04] MEDS: LORazepam 0.5 MG tablet PO SCH ×3 (08:46→19:12)
[2023-04-04 19:10] VITALS: BP 108/64; PULSE 81; RESP 17; TEMP 98; O2SAT 96
[2023-04-04 19:44] VITALS: RESP 17; O2SAT 96
[2023-04-04] MEDS: traZODone 50mg tablet PO SCH (20:00)
[2023-04-04] MEDS: OLANZAPINE 5 MG TABLET PO SCH (20:00)
[2023-04-05 07:10] VITALS: RESP 12; O2SAT 95
[2023-04-05 07:30] VITALS: BP 110/78; PULSE 85; RESP 14; TEMP 98; O2SAT 96
[2023-04-05] MEDS: venlafaxine XR 75mg capsule (Q24H) PO SCH (08:09)
[2023-04-05] MEDS: LORazepam 0.5 MG tablet PO SCH ×3 (08:09→19:45)
[2023-04-05 19:22] VITALS: BP 118/79; PULSE 84; RESP 18; TEMP 98.7; O2SAT 94
[2023-04-05] MEDS: OLANZAPINE 5 MG TABLET PO SCH (19:45)
[2023-04-05] MEDS: traZODone 50mg tablet PO SCH (19:45)
[2023-04-06 07:00] VITALS: RESP 14; O2SAT 95
[2023-04-06] MEDS: venlafaxine XR 75mg capsule (Q24H) PO SCH (07:53)
[2023-04-06] MEDS: LORazepam 0.5 MG tablet PO SCH ×3 (07:53→19:13)
[2023-04-06 08:00] VITALS: BP 85/47; PULSE 80; RESP 14; TEMP 97.9; O2SAT 95
[2023-04-06 19:35] VITALS: RESP 18; O2SAT 93
[2023-04-06 20:00] VITALS: BP 105/63; PULSE 80; RESP 18; TEMP 97.5; O2SAT 93
[2023-04-06] MEDS: traZODone 50mg tablet PO SCH (20:02)
[2023-04-06] MEDS: OLANZAPINE 5 MG TABLET PO SCH (20:02)
[2023-04-06] MEDS: LORazepam 0.5 MG tablet PO PRN (23:19)
[2023-04-07 07:00] VITALS: RESP 16; O2SAT 95
[2023-04-07 08:00] VITALS: BP 109/74; PULSE 88; RESP 16; TEMP 98.1; O2SAT 95
[2023-04-07] MEDS: venlafaxine XR 75mg capsule (Q24H) PO SCH (08:09)
[2023-04-07] MEDS: LORazepam 0.5 MG tablet PO SCH ×3 (08:09→20:14)
[2023-04-07 19:00] VITALS: RESP 16; O2SAT 94
[2023-04-07 20:00] VITALS: BP 115/73; PULSE 89; RESP 16; TEMP 98.1; O2SAT 94
[2023-04-07] MEDS: traZODone 50mg tablet PO SCH (20:14)
[2023-04-07] MEDS: OLANZAPINE 5 MG TABLET PO SCH (20:14)
[2023-04-08 07:00] VITALS: RESP 14; O2SAT 97
[2023-04-08 08:00] VITALS: BP 103/67; PULSE 85; RESP 14; TEMP 97.9; O2SAT 97
[2023-04-08] MEDS: LORazepam 0.5 MG tablet PO SCH ×3 (08:49→19:17)
[2023-04-08] MEDS: venlafaxine XR 75mg capsule (Q24H) PO SCH (08:50)
[2023-04-08 19:00] VITALS: RESP 18; O2SAT 96
[2023-04-08 20:00] VITALS: BP 123/83; PULSE 71; RESP 18; TEMP 98.2; O2SAT 96
[2023-04-08] MEDS: traZODone 50mg tablet PO SCH (20:13)
[2023-04-08] MEDS: OLANZAPINE 5 MG TABLET PO SCH (20:13)
[2023-04-09 07:00] VITALS: RESP 16; O2SAT 95
[2023-04-09 08:00] VITALS: BP 116/73; PULSE 81; RESP 16; TEMP 98.2; O2SAT 94
[2023-04-09] MEDS: LORazepam 0.5 MG tablet PO SCH ×3 (08:17→19:59)
[2023-04-09] MEDS: venlafaxine XR 75mg capsule (Q24H) PO SCH (08:17)
[2023-04-09] MEDS: methylphenidate 5mg tablet PO SCH (08:17)
[2023-04-09 20:00] VITALS: BP 123/67; PULSE 81; RESP 14; TEMP 98.8; O2SAT 95
[2023-04-09] MEDS: traZODone 50mg tablet PO SCH (20:00)
[2023-04-09] MEDS: OLANZAPINE 5 MG TABLET PO SCH (20:00)
[2023-04-10 07:00] VITALS: RESP 16; O2SAT 95
[2023-04-10 08:00] VITALS: BP 115/69; PULSE 73; RESP 16; TEMP 97.9; O2SAT 16
[2023-04-10] MEDS: venlafaxine XR 75mg capsule (Q24H) PO SCH (08:04)
[2023-04-10] MEDS: methylphenidate 5mg tablet PO SCH (08:04)
[2023-04-10] MEDS: LORazepam 0.5 MG tablet PO SCH ×3 (08:05→20:07)
[2023-04-10 20:00] VITALS: BP 124/80; PULSE 77; RESP 15; TEMP 97.8; O2SAT 94
[2023-04-10] MEDS: traZODone 50mg tablet PO SCH (20:07)
[2023-04-10] MEDS: OLANZAPINE 5 MG TABLET PO SCH (20:07)
[2023-04-11 07:00] VITALS: RESP 16; O2SAT 92
[2023-04-11 08:00] VITALS: BP 114/73; PULSE 70; RESP 16; TEMP 98.3; O2SAT 92
[2023-04-11] MEDS: LORazepam 0.5 MG tablet PO SCH ×3 (08:01→19:57)
[2023-04-11] MEDS: venlafaxine XR 75mg capsule (Q24H) PO SCH (08:01)
[2023-04-11] MEDS: methylphenidate 5mg tablet PO SCH (08:01)
[2023-04-11 19:28] VITALS: BP 118/78; PULSE 91; RESP 14; TEMP 99.2; O2SAT 94
[2023-04-11] MEDS: OLANZAPINE 5 MG TABLET PO SCH (19:57)
[2023-04-11] MEDS: traZODone 50mg tablet PO SCH (19:57)
[2023-04-12 07:00] VITALS: RESP 12; O2SAT 95
[2023-04-12] MEDS: venlafaxine XR 75mg capsule (Q24H) PO SCH (08:04)
[2023-04-12] MEDS: LORazepam 0.5 MG tablet PO SCH ×3 (08:04→19:55)
[2023-04-12] MEDS: methylphenidate 5mg tablet PO SCH (08:04)
[2023-04-12 08:26] VITALS: BP 116/74; PULSE 88; RESP 12; TEMP 98.7; O2SAT 95
[2023-04-12 19:30] VITALS: BP 114/81; PULSE 74; RESP 16; TEMP 99; O2SAT 93
[2023-04-12] MEDS: OLANZAPINE 5 MG TABLET PO SCH (19:56)
[2023-04-12] MEDS: traZODone 50mg tablet PO SCH (19:56)
[2023-04-13 07:30] VITALS: RESP 18; O2SAT 92
[2023-04-13 08:00] VITALS: BP 110/69; PULSE 78; RESP 18; TEMP 98.5; O2SAT 92
[2023-04-13] MEDS: LORazepam 0.5 MG tablet PO SCH ×3 (08:07→20:02)
[2023-04-13] MEDS: venlafaxine XR 75mg capsule (Q24H) PO SCH (08:07)
[2023-04-13] MEDS: methylphenidate 5mg tablet PO SCH (08:07)
[2023-04-13] MEDS ORDERED: methylphenidate 5mg tablet PO ONE (09:20)
[2023-04-13 19:36] VITALS: BP 123/80; PULSE 78; RESP 16; TEMP 98.9; O2SAT 97
[2023-04-13] MEDS: OLANZAPINE 5 MG TABLET PO SCH (20:03)
[2023-04-13] MEDS: traZODone 50mg tablet PO SCH (20:03)
[2023-04-14 07:30] VITALS: BP 104/68; PULSE 80; RESP 16; TEMP 98.4; O2SAT 95
[2023-04-14] MEDS: LORazepam 0.5 MG tablet PO SCH ×3 (08:32→20:16)
[2023-04-14] MEDS: methylphenidate 5mg tablet PO SCH (08:32)
[2023-04-14] MEDS: venlafaxine XR 75mg capsule (Q24H) PO SCH (08:32)
[2023-04-14 19:45] VITALS: BP 130/85; PULSE 83; RESP 16; TEMP 99; O2SAT 99
[2023-04-14] MEDS: traZODone 50mg tablet PO SCH (20:16)
[2023-04-14] MEDS: OLANZAPINE 5 MG TABLET PO SCH (20:16)
[2023-04-15 07:30] VITALS: BP 103/63; PULSE 83; RESP 14; TEMP 98.4; O2SAT 96
[2023-04-15] MEDS: LORazepam 0.5 MG tablet PO SCH ×3 (08:10→19:11)
[2023-04-15] MEDS: venlafaxine XR 75mg capsule (Q24H) PO SCH (08:10)
[2023-04-15] MEDS: methylphenidate 5mg tablet PO SCH (08:10)
[2023-04-15 19:20] VITALS: BP 116/84; PULSE 95; RESP 16; TEMP 98.4; O2SAT 95
[2023-04-15] MEDS: traZODone 50mg tablet PO SCH (20:38)
[2023-04-15] MEDS: OLANZAPINE 5 MG TABLET PO SCH (20:38)
[2023-04-16 07:00] VITALS: RESP 16; O2SAT 95
[2023-04-16 08:00] VITALS: BP 105/64; PULSE 86; RESP 16; TEMP 98.1; O2SAT 95
[2023-04-16] MEDS: LORazepam 0.5 MG tablet PO SCH ×3 (08:47→20:11)
[2023-04-16] MEDS: methylphenidate 5mg tablet PO SCH (08:47)
[2023-04-16] MEDS: venlafaxine XR 75mg capsule (Q24H) PO SCH (08:47)
[2023-04-16 20:00] VITALS: BP 135/95; PULSE 88; RESP 16; TEMP 98; O2SAT 96
[2023-04-16] MEDS: OLANZAPINE 5 MG TABLET PO SCH (20:11)
[2023-04-16] MEDS: traZODone 50mg tablet PO SCH (20:11)
[2023-04-17 07:00] VITALS: RESP 16; O2SAT 95
[2023-04-17 07:45] VITALS: BP 109/69; PULSE 94; RESP 16; TEMP 98.3; O2SAT 95
[2023-04-17] MEDS: methylphenidate 5mg tablet PO SCH (07:57)
[2023-04-17] MEDS: venlafaxine XR 75mg capsule (Q24H) PO SCH (07:57)
[2023-04-17] MEDS: LORazepam 0.5 MG tablet PO SCH ×3 (07:57→20:08)
[2023-04-17 19:00] VITALS: RESP 15; O2SAT 98
[2023-04-17 20:00] VITALS: BP 122/77; PULSE 78; RESP 15; TEMP 98.2; O2SAT 95
[2023-04-17] MEDS: traZODone 50mg tablet PO SCH (20:08)
[2023-04-18 07:00] VITALS: RESP 15; O2SAT 93
[2023-04-18 07:28] VITALS: BP 114/65; PULSE 85; RESP 15; TEMP 98.9; O2SAT 93
[2023-04-18] MEDS: LORazepam 0.5 MG tablet PO SCH ×3 (08:14→19:46)
[2023-04-18] MEDS: methylphenidate 5mg tablet PO SCH (08:15)
[2023-04-18] MEDS: venlafaxine XR 75mg capsule (Q24H) PO SCH (08:15)
[2023-04-18 19:00] VITALS: RESP 16; O2SAT 96
[2023-04-18] MEDS: traZODone 50mg tablet PO SCH (19:47)
[2023-04-18 20:00] VITALS: BP 157/108; PULSE 101; RESP 16; TEMP 98; O2SAT 96
[2023-04-18 21:26] VITALS: BP 130/94
[2023-04-19 07:00] VITALS: BP 102/61; PULSE 74; RESP 14; TEMP 97.8; O2SAT 93
[2023-04-19 07:16] VITALS: RESP 15; O2SAT 93
[2023-04-19] MEDS: venlafaxine XR 75mg capsule (Q24H) PO SCH (07:58)
[2023-04-19] MEDS: methylphenidate 5mg tablet PO SCH (07:58)
[2023-04-19] MEDS: LORazepam 0.5 MG tablet PO SCH ×3 (07:58→20:02)
[2023-04-19 19:00] VITALS: RESP 14; O2SAT 95
[2023-04-19 20:00] VITALS: BP 113/75; PULSE 80; RESP 15; TEMP 97.4; O2SAT 95
[2023-04-19] MEDS: traZODone 50mg tablet PO SCH (20:02)
[2023-04-20 07:00] VITALS: RESP 16; O2SAT 99
[2023-04-20 07:42] VITALS: BP 100/63; PULSE 63; RESP 16; TEMP 98.1; O2SAT 99
[2023-04-20] MEDS: venlafaxine XR 75mg capsule (Q24H) PO SCH (08:29)
[2023-04-20] MEDS: methylphenidate 5mg tablet PO SCH (08:29)
[2023-04-20] MEDS: LORazepam 0.5 MG tablet PO SCH ×3 (08:29→20:05)
[2023-04-20 19:00] VITALS: RESP 16; O2SAT 96
[2023-04-20 20:00] VITALS: BP 115/78; PULSE 76; RESP 16; TEMP 98.7; O2SAT 96
[2023-04-20] MEDS: traZODone 50mg tablet PO SCH (20:05)
[2023-04-21 07:00] VITALS: RESP 14; O2SAT 96
[2023-04-21] MEDS: methylphenidate 5mg tablet PO SCH (07:58)
[2023-04-21] MEDS: venlafaxine XR 75mg capsule (Q24H) PO SCH (07:58)
[2023-04-21] MEDS: LORazepam 0.5 MG tablet PO SCH ×3 (07:58→19:59)
[2023-04-21 08:00] VITALS: BP 115/74; PULSE 78; RESP 14; TEMP 97.7; O2SAT 96
[2023-04-21 19:32] VITALS: BP 121/75; PULSE 74; RESP 16; TEMP 98.8; O2SAT 92
[2023-04-21] MEDS: traZODone 50mg tablet PO SCH (20:00)
[2023-04-22 07:30] VITALS: BP 120/78; PULSE 86; RESP 16; TEMP 98.4; O2SAT 94
[2023-04-22] MEDS: LORazepam 0.5 MG tablet PO SCH ×3 (08:02→19:57)
[2023-04-22] MEDS: methylphenidate 5mg tablet PO SCH (08:02)
[2023-04-22] MEDS: venlafaxine XR 75mg capsule (Q24H) PO SCH (08:02)
[2023-04-22 19:00] VITALS: RESP 18; O2SAT 96
[2023-04-22] MEDS: traZODone 50mg tablet PO SCH (19:57)
[2023-04-22 20:00] VITALS: BP 123/87; PULSE 75; RESP 18; TEMP 97.9; O2SAT 100
[2023-04-23 07:30] VITALS: BP 104/68; PULSE 82; RESP 12; TEMP 98; O2SAT 94
[2023-04-23] MEDS: LORazepam 0.5 MG tablet PO SCH ×3 (07:48→19:00)
[2023-04-23] MEDS: venlafaxine XR 75mg capsule (Q24H) PO SCH (07:48)
[2023-04-23] MEDS: methylphenidate 5mg tablet PO SCH (07:49)
[2023-04-23] MEDS ORDERED: tuberculin, purif. prot. deriv. 5 units/0.1ml ID ONE (14:05)
[2023-04-23 19:54] VITALS: BP 129/87; PULSE 79; RESP 16; TEMP 97.7; O2SAT 94
[2023-04-23] MEDS: traZODone 50mg tablet PO SCH (20:20)
[2023-04-24 07:00] VITALS: RESP 12; O2SAT 94
[2023-04-24 08:00] VITALS: BP 109/59; PULSE 78; RESP 14; TEMP 98.4; O2SAT 95
[2023-04-24] MEDS: LORazepam 0.5 MG tablet PO SCH ×3 (08:13→19:51)
[2023-04-24] MEDS: venlafaxine XR 75mg capsule (Q24H) PO SCH (08:14)
[2023-04-24] MEDS: methylphenidate 5mg tablet PO SCH (08:14)
[2023-04-24 19:00] VITALS: RESP 16; O2SAT 96
[2023-04-24] MEDS: traZODone 50mg tablet PO SCH (19:52)
[2023-04-24 20:00] VITALS: BP 139/87; PULSE 77; RESP 18; TEMP 98.8; O2SAT 96
[2023-04-25 07:00] VITALS: RESP 12; O2SAT 94
[2023-04-25] MEDS: methylphenidate 5mg tablet PO SCH (07:46)
[2023-04-25] MEDS: LORazepam 0.5 MG tablet PO SCH ×3 (07:46→20:03)
[2023-04-25] MEDS: venlafaxine XR 75mg capsule (Q24H) PO SCH (07:46)
[2023-04-25] MEDS ORDERED: METH-350 PO ×2 (07:53)
[2023-04-25] MEDS ORDERED: BREX0.5T PO (07:53)
[2023-04-25] MEDS ORDERED: TRAZ-251 PO (07:53)
[2023-04-25] MEDS ORDERED: Lorazepam PO (07:53)
[2023-04-25] MEDS ORDERED: VENL150T3 PO (07:53)
[2023-04-25] MEDS ORDERED: LORA-269 PO (07:58)
[2023-04-25 08:00] VITALS: BP 105/71; PULSE 90; RESP 16; TEMP 98.1; O2SAT 94
[2023-04-25] MEDS ORDERED: TRAZ-256 PO (08:00)
[2023-04-25 19:00] VITALS: RESP 16; O2SAT 99
[2023-04-25 19:37] VITALS: BP 117/79; PULSE 96; RESP 16; TEMP 98.5; O2SAT 99
[2023-04-25] MEDS: traZODone 50mg tablet PO SCH (20:04)
[2023-04-26 07:18] VITALS: RESP 12; O2SAT 94
[2023-04-26] MEDS: venlafaxine XR 75mg capsule (Q24H) PO SCH (07:47)
[2023-04-26] MEDS: LORazepam 0.5 MG tablet PO SCH ×3 (07:47→19:50)
[2023-04-26] MEDS: methylphenidate 5mg tablet PO SCH (07:47)
[2023-04-26 08:00] VITALS: BP 114/76; PULSE 89; RESP 14; TEMP 98.4; O2SAT 98
[2023-04-26 19:00] VITALS: RESP 18; O2SAT 95
[2023-04-26] MEDS: traZODone 50mg tablet PO SCH (19:50)
[2023-04-26 20:00] VITALS: BP 119/77; PULSE 85; RESP 18; TEMP 98.3; O2SAT 95
[2023-04-27 07:00] VITALS: RESP 18; O2SAT 92
[2023-04-27] MEDS: methylphenidate 5mg tablet PO SCH (07:48)
[2023-04-27] MEDS: LORazepam 0.5 MG tablet PO SCH ×3 (07:48→19:50)
[2023-04-27] MEDS: venlafaxine XR 75mg capsule (Q24H) PO SCH (07:49)
[2023-04-27 08:00] VITALS: BP 110/74; PULSE 80; RESP 18; TEMP 98.3; O2SAT 92
[2023-04-27 19:00] VITALS: RESP 16; O2SAT 96
[2023-04-27] MEDS: traZODone 50mg tablet PO SCH (19:51)
[2023-04-27 20:00] VITALS: BP 124/81; PULSE 69; RESP 16; TEMP 98; O2SAT 96
[2023-04-28 07:00] VITALS: RESP 18; O2SAT 94
[2023-04-28 08:00] VITALS: BP 115/77; PULSE 79; RESP 18; TEMP 98.5; O2SAT 94
[2023-04-28] MEDS: venlafaxine XR 75mg capsule (Q24H) PO SCH (08:47)
[2023-04-28] MEDS: methylphenidate 5mg tablet PO SCH (08:47)
[2023-04-28] MEDS: LORazepam 0.5 MG tablet PO SCH ×3 (08:47→19:45)
[2023-04-28 19:00] VITALS: RESP 18; O2SAT 95
[2023-04-28] MEDS: traZODone 50mg tablet PO SCH (20:41)
[2023-04-28 20:49] VITALS: BP 126/82; PULSE 74; RESP 18; TEMP 98.5; O2SAT 95
[2023-04-29 07:00] VITALS: RESP 14; O2SAT 95
[2023-04-29 08:00] VITALS: BP 126/76; PULSE 83; RESP 14; TEMP 98.4; O2SAT 95
[2023-04-29] MEDS: dextroamphetamine/amphetamine 5mg tablet PO SCH (08:35)
[2023-04-29] MEDS: venlafaxine XR 75mg capsule (Q24H) PO SCH (08:35)
[2023-04-29] MEDS: LORazepam 0.5 MG tablet PO SCH ×3 (08:35→19:50)
[2023-04-29 19:00] VITALS: RESP 18; O2SAT 95
[2023-04-29 20:00] VITALS: BP 131/86; PULSE 63; RESP 18; TEMP 97.1; O2SAT 95
[2023-04-29] MEDS: traZODone 50mg tablet PO SCH (20:19)
[2023-04-30] MEDS: venlafaxine XR 75mg capsule (Q24H) PO SCH (07:27)
[2023-04-30] MEDS: LORazepam 0.5 MG tablet PO SCH ×3 (07:28→19:58)
[2023-04-30] MEDS: dextroamphetamine/amphetamine 5mg tablet PO SCH (07:28)
[2023-04-30 07:30] VITALS: BP 113/80; PULSE 88; RESP 14; TEMP 98.3; O2SAT 94
[2023-04-30] MEDS ORDERED: DEXT5TAB31 PO (13:50)
[2023-04-30 19:00] VITALS: RESP 18; O2SAT 94
[2023-04-30 19:09] VITALS: BP 133/95; PULSE 83; RESP 18; TEMP 97.8; O2SAT 94
[2023-04-30] MEDS: traZODone 50mg tablet PO SCH (20:00)
[2023-05-01 07:30] VITALS: BP 121/83; PULSE 92; RESP 12; TEMP 98.2; O2SAT 96; O2SAT 99
[2023-05-01] MEDS: venlafaxine XR 75mg capsule (Q24H) PO SCH (07:39)
[2023-05-01] MEDS: dextroamphetamine/amphetamine 5mg tablet PO SCH (07:40)
[2023-05-01] MEDS: LORazepam 0.5 MG tablet PO SCH (07:40)
== END 2023-05-01 12:11 | DRG 885 ==
LOC: ER 11:38 → ED HOLD 02-17 08:45 → ADULT MH 02-17 14:36
PROVIDERS: ADMIT Psychiatry & Neurology Psychiatry; ATTEND Psychiatry & Neurology Psychiatry
PROC: GZ72ZZZ Family Psychotherapy (ICD-10-PCS; principal; 2023-02-19)
PROC: GZHZZZZ Group Psychotherapy (ICD-10-PCS; 2023-02-19)
DX: F33.3 Major depressive disorder, recurrent, severe with psychotic symptoms (principal); R45.851 Suicidal ideations; Z59.00 Homelessness unspecified; F41.9 Anxiety disorder, unspecified; K40.90 Unilateral inguinal hernia, without obstruction or gangrene, not specified as recurrent; G47.09 Other insomnia; G25.71 Drug induced akathisia; Z20.822 Contact with and (suspected) exposure to COVID-19; E87.6 Hypokalemia; F10.21 Alcohol dependence, in remission; Z79.899 Other long term (current) drug therapy; Z80.0 Family history of malignant neoplasm of digestive organs
CPT/HCPCS: 36415; 71045; 80048; 80053; 80305; 80320; 81001; 83036; 83735; 84132; 84443; 85025; 87081; 87811; 96360; 99285; J3490; J7030

== ENCOUNTER 2024-09-19 18:13 | Emergency (ER) | payer BC, MEDICAID ==
[~2024-09-19] VITALS: Ht 172.7 cm; Wt 129.0 kg
[~2024-09-19 18:13] MED LIST changes: +BREX0.5T PO; +DEXT5TAB31 PO; +LORA-269 PO; +Lorazepam PO; -NO HOME MEDS; +TRAZ-251 PO; +TRAZ-256 PO; +VENL150T3 PO
--- NOTE | 2024-09-19 18:38 | Physician Documentation ---
History of Present Illness ~ Chief Complaint: Palpitations Stated Complaint: FAST HR Time Seen by MD: 18:29 Primary Medical Doctor: none Source: patient HPI Reviewed discharge summary February 2023-major depressive disorder on lorazepam, trazodone, amphetamine, prior heavy alcohol use disorder Patient presents with rapid heart rate. He reports making this morning feeling fine and feeling racing in his chest throughout the day. He denies any chest pain or shortness of breath no leg swelling no history of venous thromboembolism. He is taking all his medications as prescribed has not taken any extra. She does report drinking alcohol for the 1st time last night Medication Reconciliation Allergies: Coded Allergies: No Known Allergies (Unverified , 08/27/22) Scheduled Brexpiprazole (Rexulti), 1 TAB PO HS Dextroamphetamine/Amphetamine (Amphetamine Salts 5 mg Tablet), 5 MG PO DAILY Trazodone HCl (Trazodone HCl), 1 MG PO HS Trazodone HCl (Trazodone HCl), 2 TAB PO HS Venlafaxine HCl (Venlafaxine HCl ER), 2 TAB PO DAILY [Lorazepam*], 0.5 MG PO DAILY Scheduled PRN Lorazepam (Ativan), 0.5 TAB PO DAILY PRN for anxiety Past Medical History Past Medical History: Anxiety, Depression Past Surgical History: noncontributory Patient History: Depression FATHER No family history of mental disorder Alcohol Use: Sober Drug Use: none Lives with: Family Lives In: Home Occupation: unemployed Review of Systems Constitutional: Denies: fever Respiratory: Denies: shortness of breath Cardiovascular: Denies: chest pain Gastrointestinal: Denies: abdominal pain, nausea, vomiting Physical Exam Vital Signs: Temperature: 98.0, Source: Temporal, Heart Rate: 129, Respiratory Rate: 12, BP: 120/85, Pulse Oximetry: 96, Weight: 129.000 Physical Exam Well-appearing no distress resting comfortably in bed Morbidly obese Pulmonary clear to auscultation Cardiac and tachycardia no murmur Lower extremity no edema Abdomen is soft nontender Neuro awake alert oriented psych normal mood normal insight normal judgment Progress Progress Note Reassess patient at 9:41 p.m. he is now asymptomatic feels much better following IV fluids. His heart rate is in the 90s still sinus rhythm. He is requesting something to help him sleep tonight Results/Orders Results/Orders Orders - DEVON MARSHALL MD Chest,Single View (09/19/24 19:08) Monitor (09/19/24 18:50) Hs Troponin I W Calculations (09/19/24 20:50) Completed Orders - DEVON MARSHALL MD Cbc/Diff (09/19/24 18:50) Chest,Single View (09/19/24 19:08) D-Dimer (09/19/24 18:50) BMP (09/19/24 18:50) Hs Troponin I W Calculations (09/19/24 18:50) Ringers Solution, Lacted (Lactated Ringe (09/19/24 18:50) PBNP (09/19/24 18:50) Electrocardiogram (09/19/24 ) Diphenhydramine Capsule (Benadryl Capsul (09/19/24 21:45) Medications Received in ER Medications (Trade) Dose Ordered Sig/Zaida Route PRN Reason Start Time Stop Time Status Last Admin Dose Admin Lactated Ringer's 1,000 ml @ 1,000 mls/hr ONCE ONCE IV 09/19/24 18:50 09/19/24 19:49 DC 09/19/24 19:06 1,000 MLS/HR (Benadryl capsule) 50 mg ONCE ONCE PO 09/19/24 21:45 09/19/24 21:46 DC 09/19/24 21:57 50 MG Vital Signs 09/19/24 09/19/24 09/19/24 09/19/24 18:17 18:37 18:50 18:51 Temp 98.0 Pulse 129 131 Resp 12 15 18 B/P (MAP) 120/85 123/79 (94) Pulse Ox 96 91 09/19/24 09/19/24 20:42 22:15 Temp 98.0 Pulse 109 87 Resp 22 17 B/P (MAP) 137/89 (105) 137/97 Pulse Ox 95 100 Laboratory Tests Test 09/19/24 19:01 White Blood Count 8.0 Red Blood Count 5.76 Hemoglobin 16.3 Hematocrit 48.2 Mean Corpuscular Volume 83.8 Mean Corpuscular Hemoglobin 28.3 Mean Corpuscular Hemoglobin Concent 33.8 Red Cell Distribution Width 14.8 H Platelet Count 253 Mean Platelet Volume 8.7 Neutrophils (%) (Auto) 66.0 Lymphocytes (%) (Auto) 23.6 Monocytes (%) (Auto) 8.0 Eosinophils (%) (Auto) 1.8 Basophils (%) (Auto) 0.6 Neutrophils # (Auto) 5.3 Lymphocytes # (Auto) 1.9 Monocytes # (Auto) 0.6 Eosinophils # (Auto) 0.1 Basophils # (Auto) 0.1 CBC Comment D-Dimer 0.37 D-Dimer Comment Sodium Level 144 Potassium Level 3.9 Chloride Level 106 Carbon Dioxide Level 26.2 Anion Gap 12 Blood Urea Nitrogen 12 Creatinine 0.72 Estimated GFR/1.73 m2 > 90 BUN/Creatinine Ratio 16.7 Glucose Level 128 H Calcium Level 8.7 Troponin I High Sensitivity 7 Pro-B-Type Natriuretic Peptide 48 Albumin 3.0 L Chemistry Comments EKG/XRAY/CT/US/VASC/MRI EKG : Additional Comment EKG independently interpreted by myself time 6:17 p.m. indication palpitations sinus tachycardia rate 128 left axis deviation poor R-wave progression no ST or T-wave abnormalities Repeat EKG time 05/31/2028 indication palpitations normal sinus rhythm rate 99 normal axis normal intervals no acute changes when compared to 18 17 Chest X-Ray : Additional Comments I independently interpreted chest x-ray shows no pneumothorax no consolidation no opacity normal cardiomediastinal silhouette Medical Decision Making Additional info obtained from: old records Findings Discharge summary 04/2023 Additional Information Arrhythmia, atrial fibrillation, sinus tachycardia, pulmonary embolism Departure Disposition: HOME / SELF CARE / HOMELESS Impression: Primary Impression: Sinus tachycardia Additional Impression Text D-dimer within normal limits, EKG showed sinus tachycardia which resolved with IV fluids. He had just started drinking again yesterday evening likely this is just dehydration or potentially alcohol withdrawal regardless his symptoms resolved spontaneously. Safe for outpatient follow up Additional Instructions: Your test today were all very reassuring. Increase your fluid intake get plenty of rest and return to the emergency department if you have any reoccurrence of your symptoms. Otherwise it would be warranted to follow up with your primary care physician for outpatient evaluation to ensure that this issue has resolved Referrals: NO PRIMARY CARE PROVIDER (PCP) Critical Care Note Total Time (mins): 30 Critical Care Note The very real possibility of a deterioration of this patient's condition required the highest level of my preparedness for sudden, emergent intervention. I provided critical care services, which included medication orders, frequent reevaluations of the patient's condition and response to treatment, ordering and reviewing test results, and discussing the case with various consultants. Excludes time spent performing separately billable procedures. The critical care time associated with the care of the patient was 30 minutes in the management of sinus tachycardia requiring intervention Signature Scribe Signature: kapil Attestation: DEVON Whitaker MD September 19, 2024 18:38
[2024-09-19] MEDS: ringers solution, lacted 1,000 ML IV ONE (19:06)
[2024-09-19 19:33] LABS: BASOPHILS # (AUTO) 0.1 X10'3 (0-0.2); BASOPHILS % (AUTO) 0.6 % (0-1); EOSINOPHILS # (AUTO) 0.1 X10'3 (0-0.9); EOSINOPHILS % (AUTO) 1.8 % (0-6); HEMATOCRIT 48.2 % (42.0-52.0); HEMOGLOBIN 16.3 g/dl (14.0-17.9); LYMPHOCYTES # (AUTO) 1.9 X10'3 (1.1-4.8); LYMPHOCYTES % (AUTO) 23.6 % (21-51); MEAN CORPUSCULAR HEMOGLOBIN 28.3 PG (27.0-31.0); MEAN CORPUSCULAR HGB CONC 33.8 g/dL (33.0-36.5); MEAN CORPUSCULAR VOLUME 83.8 FL (78-98); MEAN PLATELET VOLUME 8.7 FL (7.4-10.4); MONOCYTES # (AUTO) 0.6 X10'3 (0-0.9); NEUTROPHILS # (AUTO) 5.3 X10'3 (1.8-7.7); PLATELET COUNT 253 X10'3 (140-440); RED BLOOD COUNT 5.76 X10'6 (4.70-6.10); RED CELL DISTRIBUTION WIDTH 14.8 % (11.5-14.5)
[2024-09-19 19:45] LABS: D-DIMER 0.37 MG/L FEU (0-0.50)
[2024-09-19 19:55] LABS: ANION GAP 12 (8-16); BLOOD UREA NITROGEN 12 MG/DL (7-18); BUN/CREATININE RATIO 16.7 (10.0-20.0); CALCIUM 8.7 MG/DL (8.5-10.1); CHLORIDE 106 MMOL/L (99-107); CREATININE 0.72 MG/DL (0.60-1.10); GLUCOSE 128 MG/DL (70-104); POTASSIUM 3.9 MMOL/L (3.5-5.1); PRO BRAIN NATRIURETIC PEPTIDE 48 PG/ML (0-125); SODIUM 144 MMOL/L (135-145); TOTAL CARBON DIOXIDE 26.2 MMOL/L (24-32); eCRCL 113 ML/MIN; eGFR > 90 ML/MIN
--- NOTE | 2024-09-19 20:04 | RADIOLOGY REPORT ---
Clinical History SOB Comparison None Technique: single view chest Without Contrast CRUZITO GUERRA, [id number] FINDINGS: Trachea is midline, heart size normal, cardiomediastinal silhouette unremarkable. There is no pneumonia or pulmonary vascular congestion, no pneumothorax, no evidence of pleural or pe ricardial effusion. Osseous structures are unremarkable on this single image. IMPRESSION: 1. No evidence of acute cardiopulmonary disease. This report was electronically signed by Evan Hancock MD on 09/19/2024 8:01:28 PM.
--- NOTE | 2024-09-19 20:20 | ELECTROCARDIOGRAPH REPORT ---
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 Yoana Luther Measurements Intervals [place] Rate: 128 P: 37 MD: 148 QRS: -38 QRSD: 76 T: 57 QT: 293 QTc: 428 Interpretive Statements Sinus tachycardia Left axis deviation Low voltage, precordial leads Abnormal R-wave progression, late transition Electronically Signed On 09-20-2024 18:46:[address] Yoana Luther Please click the below link to view image of tracing.
[2024-09-19] MEDS: diphenhydrAMINE 25mg capsule PO ONE (21:57)
[2024-09-19 22:15] VITALS: BP 137/97; PULSE 87; RESP 17; TEMP 98; O2SAT 100
--- NOTE | 2024-09-20 05:23 | ELECTROCARDIOGRAPH REPORT ---
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 Yoana Luther Measurements Intervals [place] Rate: 99 P: 30 MT: 143 QRS: -30 QRSD: 85 T: 26 QT: 340 QTc: 437 Interpretive Statements Sinus rhythm Left axis deviation Electronically Signed On 09-20-2024 18:48:[address] Yoana Luther Please click the below link to view image of tracing.
== END 2024-09-19 22:16 | disposition home or self-care (01) ==
LOC: ER 18:14
DX: R00.0 Tachycardia, unspecified (principal); F32.A Depression, unspecified; F41.9 Anxiety disorder, unspecified
CPT/HCPCS: 36415; 71045; 80048; 83880; 84484; 85025; 85379; 93005; 96360; 96361; 99285; J7120; Q0163

== ENCOUNTER 2024-10-04 10:27 | Emergency (ER) | payer BC ==
[~2024-10-04] VITALS: Ht 172.7 cm; Wt 95.5 kg
[2024-10-04 10:47] VITALS: BP 157/107; PULSE 97; RESP 16; TEMP 97.9; O2SAT 97
--- NOTE | 2024-10-04 12:12 | Physician Documentation ---
History of Present Illness ~ Chief Complaint: Mental Health Eval Stated Complaint: MH Time Seen by MD: 12:00 Primary Medical Doctor: none HPI 54-year-old male presenting with some bizarre behavior and thoughts. Patient states that he is here because of a lifetime of failure. He denies any suicidal or homicidal ideations. States that his daughter can give us more of the hist ory. Does not give any other history. Medication Reconciliation Allergies: Coded Allergies: No Known Allergies (Unverified , 08/27/22) Scheduled Brexpiprazole (Rexulti), 1 TAB PO HS Dextroamphetamine/Amphetamine (Amphetamine Salts 5 mg Tablet), 5 MG PO DAILY Trazodone HCl (Trazodone HCl), 1 MG PO HS Trazodone HCl (Trazodone HCl), 2 TAB PO HS Venlafaxine HCl (Venlafaxine HCl ER), 2 TAB PO DAILY [Lorazepam*], 0.5 MG PO DAILY Scheduled PRN Lorazepam (Ativan), 0.5 TAB PO DAILY PRN for anxiety Past Medical History Past Medical History: Anxiety, Depression Past Surgical History: noncontributory Patient History: Depression FATHER No family history of mental disorder Alcohol Use: Sober Drug Use: none Lives with: Family Lives In: Home Occupation: unemployed Review of Systems All Other Systems at this time: Reviewed and Negative Physical Exam Vital Signs: Temperature: 97.9, Heart Rate: 97, Respiratory Rate: 16, BP: 157/107, Pulse Oximetry: 97, Weight: 95.450 Oxygen Flow Rate: 0 Physical Exam I have reviewed the triage vitals. CONST: Well developed and well nourished. In no acute distress HENT: Head Atraumatic EYES: Pupils are equal, round and reactive to light. Normal conjunctiva NECK: Normal range of motion. Supple. CARDIO: Normal rate and regular rhythm. No murmurs, rubs, or gallops. S1, S2. PULM/CHEST: No respiratory distress. Lungs clear to auscultation. No wheeze ABD: Soft and nontender. Nondistended. Bowel sounds normal. No guarding. : Exam deferred MSK: No edema. No deformity. NEURO: Alert and oriented to person, place and time. Moving all extremities SKIN: Warm and dry. PSYCH: Flat affect. Bizarre thinking. Paranoia. Progress Results/Orders Results/Orders Orders - RYANN KEBEDE MD 1799.11 (10/04/24 ) Close Observation Level (10/04/24 15:40) Completed Orders - RYANN KEBEDE MD Cbc/Diff (10/04/24 12:08) MG (10/04/24 12:08) CMP (10/04/24 12:08) Drug Screen, Urine (10/04/24 12:08) Ethanol (10/04/24 12:08) Ua W/Microscopic, Cult If Ind (10/04/24 13:05) Vital Signs 10/04/24 10/04/24 10:47 17:16 Temp 97.9 Pulse 97 Resp 16 B/P (MAP) 157/107 Pulse Ox 97 O2 Flow Rate 0 Laboratory Tests Test 10/04/24 12:22 10/04/24 13:05 White Blood Count 7.5 Red Blood Count 6.06 Hemoglobin 17.6 Hematocrit 50.9 Mean Corpuscular Volume 83.9 Mean Corpuscular Hemoglobin 29.0 Mean Corpuscular Hemoglobin Concent 34.6 Red Cell Distribution Width 15.0 H Platelet Count 251 Mean Platelet Volume 8.9 Neutrophils (%) (Auto) 71.0 Lymphocytes (%) (Auto) 20.4 L Monocytes (%) (Auto) 7.5 Eosinophils (%) (Auto) 0.3 Basophils (%) (Auto) 0.8 Neutrophils # (Auto) 5.4 Lymphocytes # (Auto) 1.5 Monocytes # (Auto) 0.6 Eosinophils # (Auto) 0.0 Basophils # (Auto) 0.1 CBC Comment Sodium Level 140 Potassium Level 3.7 Chloride Level 102 Carbon Dioxide Level 28.7 Anion Gap 9 Blood Urea Nitrogen 11 Creatinine 0.85 Estimated GFR/1.73 m2 > 90 BUN/Creatinine Ratio 12.9 Glucose Level 110 H Calcium Level 9.2 Magnesium Level 1.9 Total Bilirubin 1.2 H Aspartate Amino Transf (AST/SGOT) 21 Alanine Aminotransferase (ALT/SGPT) 30 Alkaline Phosphatase 70 Total Protein 7.9 Albumin 3.7 Globulin 4.2 Albumin/Globulin Ratio 0.9 L Chemistry Comments Ethyl Alcohol Level < 10 Urine Specimen Description Urinal Urine Color Dark yellow Urine Clarity Clear Urine pH 6.0 Urine Specific [place] >=1.030 Urine Protein >=300 H Urine Glucose (UA) Negative Urine Ketones 40 H Urine Occult Blood Negative Urine Nitrite Negative Urine Bilirubin Negative Urine Urobilinogen 1.0 Urine Leukocyte Esterase Negative Urine RBC 0-2 Urine WBC 0-4 Urine Squamous Epithelial Cells None seen Urine Amorphous Urates 1+ Urine Bacteria None seen Urine Mucus None seen Urine Culture Indicated Not ind Volume Urine Centrifuged 10 ml Urine Comment Urine Opiates Screen Negative Urine Methadone Screen Negative Urine Fentanyl Screen Negative Urine Barbiturates Screen Negative Urine Phencyclidine Screen Negative Urine Amphetamines Screen Negative Urine Benzodiazepines Screen Negative Urine Cocaine Screen Negative Urine Cannabinoids Screen Negative Drug Screen Comment Medical Decision Making Differential Diagnosis 54-year-old male presenting with bizarre and delusional thoughts. He is now medically cleared for psychiatric evaluation. He was assessed by our mental health professional here. Patient has psychosis but he does not have any suicidal or homicidal ideations and is not a danger to self or others. He was given resources and I plan to follow up at [facility]. At this point in time he is stable and safe to be discharged home. He was advised to return to ED with any acutely worsening symptoms. Departure Disposition: 01 HOME / SELF CARE / HOMELESS Impression: Primary Impression: Psychosis Additional Instructions: Follow up with [facility]. Return to the ED with any acutely worsening symptoms. Referrals: NO PRIMARY CARE PROVIDER (PCP) Signature Scribe Signature: 1 Attestation: 1 RYANN KEBEDE MD October 04, 2024 12:12
[2024-10-04 12:39] LABS: BASOPHILS # (AUTO) 0.1 X10'3 (0-0.2); BASOPHILS % (AUTO) 0.8 % (0-1); EOSINOPHILS % (AUTO) 0.3 % (0-6); HEMATOCRIT 50.9 % (42.0-52.0); HEMOGLOBIN 17.6 g/dl (14.0-17.9); LYMPHOCYTES # (AUTO) 1.5 X10'3 (1.1-4.8); LYMPHOCYTES % (AUTO) 20.4 % (21-51); MEAN CORPUSCULAR HGB CONC 34.6 g/dL (33.0-36.5); MEAN CORPUSCULAR VOLUME 83.9 FL (78-98); MEAN PLATELET VOLUME 8.9 FL (7.4-10.4); MONOCYTES # (AUTO) 0.6 X10'3 (0-0.9); MONOCYTES % (AUTO) 7.5 % (2-12); NEUTROPHILS # (AUTO) 5.4 X10'3 (1.8-7.7); PLATELET COUNT 251 X10'3 (140-440); RED BLOOD COUNT 6.06 X10'6 (4.70-6.10); WHITE BLOOD COUNT 7.5 X10'3 (4.5-11.0)
[2024-10-04 12:52] LABS: ALANINE AMINOTRANSFERASE 30 U/L (12-78); ALBUMIN 3.7 G/DL (3.4-5.0); ALBUMIN/GLOBULIN RATIO 0.9 (1.1-1.5); ALKALINE PHOSPHATASE 70 IU/L (46-116); ANION GAP 9 (8-16); ASPARTATE AMINO TRANSFERASE 21 U/L (10-37); BILIRUBIN,TOTAL 1.2 MG/DL (0.1-1.0); BLOOD UREA NITROGEN 11 MG/DL (7-18); BUN/CREATININE RATIO 12.9 (10.0-20.0); CALCIUM 9.2 MG/DL (8.5-10.1); CHLORIDE 102 MMOL/L (99-107); CREATININE 0.85 MG/DL (0.60-1.10); GLUCOSE 110 MG/DL (70-104); MAGNESIUM 1.9 MG/DL (1.5-2.4); SODIUM 140 MMOL/L (135-145); TOTAL CARBON DIOXIDE 28.7 MMOL/L (24-32); TOTAL PROTEIN 7.9 G/DL (6.4-8.2); eCRCL 96 ML/MIN; eGFR > 90 ML/MIN
[2024-10-04 12:55] LABS: POTASSIUM 3.7 MMOL/L (3.5-5.1)
[2024-10-04 13:00] LABS: ETHANOL < 10 MG/DL (<10)
[2024-10-04 13:19] LABS: BILIRUBIN,URINE NEGATIVE (Neg); CLARITY,URINE CLEAR (Clear); GLUCOSE, URINE NEGATIVE (Neg); KETONES,URINE 40 mg/dl (Neg); LEUKOCYTE ESTERASE ,URINE NEGATIVE (Neg); NITRITES, URINE NEGATIVE (Neg); OCCULT BLOOD,URINE NEGATIVE (Neg); PROTEIN,URINE >=300 mg/dl (Neg)
[2024-10-04 13:22] LABS: COLOR,URINE DARK YELLOW (Yellow); UA COLLECTION TYPE URINAL
[2024-10-04 13:38] LABS: AMORPHOUS URATES 1+; BACTERIA,URINE NONE SEEN /HPF (Neg); MUCUS STRANDS NONE SEEN /LPF (Neg); RBC,URINE 0-2 /HPF (0-2); SQUAMOUS EPITHELIAL CELL,UR NONE SEEN /LPF (FEW); WBC,URINE 0-4 /HPF (0-4)
[2024-10-04 13:44] LABS: URINE AMPHETAMINE SCREEN NEGATIVE (Neg); URINE BARBITUATE SCREEN NEGATIVE (Neg); URINE BENZODIAZEPINES SCREEN NEGATIVE (Neg); URINE CANNABINOID SCREEN NEGATIVE (Neg); URINE COCAINE SCREEN NEGATIVE (Neg); URINE METHADONE SCREEN NEGATIVE (Neg); URINE OPIATE SCREEN NEGATIVE (Neg); URINE PHENCYCLIDINE SCREEN NEGATIVE (Neg)
== END 2024-10-04 17:19 | disposition home or self-care (01) ==
LOC: ER 10:28
DX: F29 Unspecified psychosis not due to a substance or known physiological condition (principal); F32.A Depression, unspecified; F41.9 Anxiety disorder, unspecified; Z79.899 Other long term (current) drug therapy; Z56.0 Unemployment, unspecified; Z20.822 Contact with and (suspected) exposure to COVID-19
CPT/HCPCS: 36415; 80053; 80305; 80320; 81001; 83735; 85025; 99284

== ENCOUNTER 2024-10-09 18:27 | Inpatient (IN) | payer BC ==
[~2024-10-09] VITALS: Ht 177.8 cm; Wt 126.4 kg
--- NOTE | 2024-10-09 18:49 | Physician Documentation ---
History of Present Illness ~ Chief Complaint: 5150 Stated Complaint: 5150 Time Seen by MD: 18:43 Primary Medical Doctor: none HPI 44-year-old male presents to the ED with concerns over increased agitation and concerning behaviors that are off of his baseline [facility] indicate that they believe the patient may have schizophrenia. According to his external medication reconciliation he is taking bupropion, prazosin, and hydroxyzine. During my interview patient would not respond appropriately who has had tangential sentence fragments [facility] states that they have had difficulty getting the patient to come into the ED for mental health evaluation she had they state that the nursing informatics specialist have been involved in essentially they were unable to tell the patient on why he is presenting to the ED Patient's also is not forthcoming or responsive to the situation Patient however denies any HI SI Day of Onset: October 09, 2024 Medication Reconciliation Allergies: Coded Allergies: No Known Allergies (Unverified , 10/09/24) Scheduled Brexpiprazole (Rexulti), 1 TAB PO HS Dextroamphetamine/Amphetamine (Amphetamine Salts 5 mg Tablet), 5 MG PO DAILY Trazodone HCl (Trazodone HCl), 1 MG PO HS Trazodone HCl (Trazodone HCl), 2 TAB PO HS Venlafaxine HCl (Venlafaxine HCl ER), 2 TAB PO DAILY [Lorazepam*], 0.5 MG PO DAILY Scheduled PRN Lorazepam (Ativan), 0.5 TAB PO DAILY PRN for anxiety Past Medical History Past Medical History: Anxiety, Depression Past Surgical History: noncontributory Patient History: Depression FATHER No family history of mental disorder Alcohol Use: Sober Drug Use: none Lives with: Family Lives In: Home Occupation: unemployed Review of Systems All Other Systems at this time: Reviewed and Negative ROS As stated above in the HPI, otherwise all systems are reviewed and negative. Physical Exam Vital Signs: Temperature: 97.0, Source: Temporal, Heart Rate: 109, Respiratory Rate: 18, BP: 160/109, Pulse Oximetry: 97, Weight: 100.958 Physical Exam General: anxious appearing Respiratory: Lungs clear, no respiratory distress. Cardiovascular: Regular rate and rhythm, no murmurs. Neurologic: Oriented x3 Psychiatric: odd affect Skin: Normal color, warm and dry. No edema, no ecchymosis. Progress Results/Orders Results/Orders Completed Orders - MARCEL KUHN DO Diazepam Inj (Valium Inj) (10/09/24 19:15) Vital Signs 10/09/24 10/09/24 18:34 19:17 Temp 97.0 Pulse 109 Resp 18 18 B/P (MAP) 160/109 Pulse Ox 97 Laboratory Tests Test 10/09/24 18:48 10/09/24 19:08 10/09/24 19:22 Urine Specimen Description Voided Urine Color Yellow Urine Clarity Slightly cloudy Urine pH 6.0 Urine Specific [place] >=1.030 Urine Protein >=300 H Urine Glucose (UA) Negative Urine Ketones 15 H Urine Occult Blood Negative Urine Nitrite Negative Urine Bilirubin Small Urine Urobilinogen 1.0 Urine Leukocyte Esterase Negative Urine RBC None seen Urine WBC 0-4 Urine Squamous Epithelial Cells Few Urine Bacteria 1+ Urine Hyaline Casts 0-3 Urine Mucus Few Volume Urine Centrifuged 10 ml Urine Comment Urine Opiates Screen Negative Urine Methadone Screen Negative Urine Fentanyl Screen Negative Urine Barbiturates Screen Negative Urine Phencyclidine Screen Negative Urine Amphetamines Screen Negative Urine Benzodiazepines Screen Negative Urine Cocaine Screen Negative Urine Cannabinoids Screen Negative Drug Screen Comment SARS-CoV-2 Antigen (Rapid) Negative White Blood Count 15.3 H Red Blood Count 6.13 H Hemoglobin 17.3 Hematocrit 50.8 Mean Corpuscular Volume 82.8 Mean Corpuscular Hemoglobin 28.2 Mean Corpuscular Hemoglobin Concent 34.0 Red Cell Distribution Width 14.2 Platelet Count 253 Mean Platelet Volume 9.7 Neutrophils (%) (Auto) 86.0 H Lymphocytes (%) (Auto) 7.5 L Monocytes (%) (Auto) 6.0 Eosinophils (%) (Auto) 0.1 Basophils (%) (Auto) 0.4 Neutrophils # (Auto) 13.2 H Lymphocytes # (Auto) 1.1 Monocytes # (Auto) 0.9 Eosinophils # (Auto) 0.0 Basophils # (Auto) 0.1 CBC Comment Sodium Level 141 Potassium Level 3.1 L Chloride Level 102 Carbon Dioxide Level 22.0 L Anion Gap 17 H Blood Urea Nitrogen 43 H Creatinine 1.53 H Estimated GFR/1.73 m2 48 BUN/Creatinine Ratio 28.1 H Glucose Level 152 H Calcium Level 8.5 Albumin 3.8 Thyroid Stimulating Hormone (TSH) 0.71 Chemistry Comments Ethyl Alcohol Level < 10 Medical Decision Making Findings Additional note by Marcel Kuhn DO: I took over the care of this patient from previous physician. I reviewed any previous notes available, obtain my own history, review of systems and physical examination was performed by myself. Differential includes but not limited to acute psychosis, medication noncompliance, decompensation of psychiatric disease, drug toxidrome, drug withdrawal. Laboratory workup notable for mild leukocytosis,, concentration, acute kidney injury. All of this likely related to dehydration. UA nondiagnostic for UTI. The patient is medically cleared for psychiatric evaluation. Differential Dx:Considerations: Include: Alcohol abuse, Anxiety, Bipolar disorder, Conversion disorder, Depression, Encephaloathy, Homicidal, Panic disorder, Personality disorder, Schizophrenia, Substance abuse, Suicidal, Other Departure Disposition: 30 STILL A PATIENT Impression: Primary Impression: Psychosis Additional Impression: Psychiatric problem Referrals: NO PRIMARY CARE PROVIDER (PCP) Signature Scribe Signature: No scribe Attestation: This note accurately reflects clinical decisions, work performed by myself, DO CHARLY Duncan JUSTIN H NP October 09, 2024 18:49 MARCEL KUHN DO October 09, 2024 23:19
[2024-10-09 19:09] LABS: BILIRUBIN,URINE SMALL (Neg); CLARITY,URINE SLIGHTLY CLOUDY (Clear); COLOR,URINE YELLOW (Yellow); GLUCOSE, URINE NEGATIVE (Neg); KETONES,URINE 15 mg/dl (Neg); LEUKOCYTE ESTERASE ,URINE NEGATIVE (Neg); NITRITES, URINE NEGATIVE (Neg); OCCULT BLOOD,URINE NEGATIVE (Neg); PROTEIN,URINE >=300 mg/dl (Neg)
[2024-10-09] MEDS: diazepam inj 5 MG/ML inj. IM ONE (19:15)
[2024-10-09 19:16] LABS: UA COLLECTION TYPE VOIDED
[2024-10-09] MEDS: diazepam inj 5 MG/ML inj. IV ONE (19:16)
[2024-10-09 19:17] LABS: WBC,URINE 0-4 /HPF (0-4)
[2024-10-09 19:18] LABS: BACTERIA,URINE 1+ /HPF (Neg); HYALINE CASTS 0-3 /LPF (NEGATIVE); MUCUS STRANDS FEW /LPF (Neg); RBC,URINE NONE SEEN /HPF (0-2); SQUAMOUS EPITHELIAL CELL,UR FEW /LPF (FEW)
[2024-10-09 19:25] LABS: URINE AMPHETAMINE SCREEN NEGATIVE (Neg); URINE BARBITUATE SCREEN NEGATIVE (Neg); URINE BENZODIAZEPINES SCREEN NEGATIVE (Neg); URINE CANNABINOID SCREEN NEGATIVE (Neg); URINE COCAINE SCREEN NEGATIVE (Neg); URINE METHADONE SCREEN NEGATIVE (Neg); URINE OPIATE SCREEN NEGATIVE (Neg); URINE PHENCYCLIDINE SCREEN NEGATIVE (Neg)
[2024-10-09 19:35] LABS: BASOPHILS # (AUTO) 0.1 X10'3 (0-0.2); BASOPHILS % (AUTO) 0.4 % (0-1); EOSINOPHILS % (AUTO) 0.1 % (0-6); HEMATOCRIT 50.8 % (42.0-52.0); HEMOGLOBIN 17.3 g/dl (14.0-17.9); LYMPHOCYTES # (AUTO) 1.1 X10'3 (1.1-4.8); LYMPHOCYTES % (AUTO) 7.5 % (21-51); MEAN CORPUSCULAR HEMOGLOBIN 28.2 PG (27.0-31.0); MEAN CORPUSCULAR VOLUME 82.8 FL (78-98); MEAN PLATELET VOLUME 9.7 FL (7.4-10.4); MONOCYTES # (AUTO) 0.9 X10'3 (0-0.9); NEUTROPHILS # (AUTO) 13.2 X10'3 (1.8-7.7); PLATELET COUNT 253 X10'3 (140-440); RED BLOOD COUNT 6.13 X10'6 (4.70-6.10); RED CELL DISTRIBUTION WIDTH 14.2 % (11.5-14.5); WHITE BLOOD COUNT 15.3 X10'3 (4.5-11.0)
[2024-10-09 19:58] LABS: ALBUMIN 3.8 G/DL (3.4-5.0); ANION GAP 17 (8-16); BLOOD UREA NITROGEN 43 MG/DL (7-18); BUN/CREATININE RATIO 28.1 (10.0-20.0); CALCIUM 8.5 MG/DL (8.5-10.1); CHLORIDE 102 MMOL/L (99-107); CREATININE 1.53 MG/DL (0.60-1.10); ETHANOL < 10 MG/DL (<10); GLUCOSE 152 MG/DL (70-104); POTASSIUM 3.1 MMOL/L (3.5-5.1); SODIUM 141 MMOL/L (135-145); THYROID STIMULATING HORMONE 0.71 ulU/ml (0.34-4.50); eCRCL 53 ML/MIN; eGFR 48 ML/MIN
[2024-10-10] MEDS: haloperidol lactate 5mg/ml inj IM ONE (06:25)
[2024-10-10] MEDS: diphenhydrAMINE 50 mg/ml inj IM ONE (06:25)
[2024-10-10] MEDS ORDERED: VENL150C5 PO (09:24)
[2024-10-10] MEDS: OLANZapine 2.5MG tablet PO STA (09:33)
[2024-10-10] MEDS: diphenhydrAMINE 25mg capsule PO ONE (09:33)
[2024-10-10] MEDS: LORazepam 1 MG tablet PO ONE (09:33)
[2024-10-10] MEDS: OLANZapine **IM** 10 mg inj. IM ONE (09:47)
[2024-10-10] MEDS: POTASSIUM BICARB 20meq eff tab 20 MEQ TABLET.EFF PO SCH (19:05)
[2024-10-10] MEDS ORDERED: PRAZ2CAP2 PO (19:47)
[2024-10-10] MEDS ORDERED: HYDROCHLOROTHIAZIDE PO (19:47)
[2024-10-10] MEDS ORDERED: BUPR-480 PO (19:47)
[2024-10-10] MEDS ORDERED: HYDR50TA65 PO (19:47)
[2024-10-10] MEDS ORDERED: LOSA25TA41 PO (19:47)
[2024-10-10 22:32] LABS: ALBUMIN 3.2 G/DL (3.4-5.0); ANION GAP 13 (8-16); BLOOD UREA NITROGEN 28 MG/DL (7-18); BUN/CREATININE RATIO 26.7 (10.0-20.0); CALCIUM 8.3 MG/DL (8.5-10.1); CHLORIDE 102 MMOL/L (99-107); CREATININE 1.05 MG/DL (0.60-1.10); GLUCOSE 94 MG/DL (70-104); SODIUM 141 MMOL/L (135-145); TOTAL CARBON DIOXIDE 26.4 MMOL/L (24-32); eCRCL 78 ML/MIN; eGFR 74 ML/MIN
[2024-10-10 22:46] LABS: BASOPHILS % (AUTO) 0.4 % (0-1); EOSINOPHILS # (AUTO) 0.1 X10'3 (0-0.9); EOSINOPHILS % (AUTO) 1.5 % (0-6); HEMATOCRIT 49.1 % (42.0-52.0); HEMOGLOBIN 16.2 g/dl (14.0-17.9); LYMPHOCYTES # (AUTO) 1.9 X10'3 (1.1-4.8); LYMPHOCYTES % (AUTO) 19.9 % (21-51); MEAN CORPUSCULAR HEMOGLOBIN 28.2 PG (27.0-31.0); MEAN CORPUSCULAR HGB CONC 32.9 g/dL (33.0-36.5); MEAN CORPUSCULAR VOLUME 85.7 FL (78-98); MEAN PLATELET VOLUME 9.9 FL (7.4-10.4); MONOCYTES # (AUTO) 0.8 X10'3 (0-0.9); MONOCYTES % (AUTO) 8.9 % (2-12); NEUTROPHILS # (AUTO) 6.5 X10'3 (1.8-7.7); NEUTROPHILS % (AUTO) 69.3 % (42-75); PLATELET COUNT 199 X10'3 (140-440); RED BLOOD COUNT 5.73 X10'6 (4.70-6.10); RED CELL DISTRIBUTION WIDTH 14.4 % (11.5-14.5); WHITE BLOOD COUNT 9.4 X10'3 (4.5-11.0)
[2024-10-11 02:28] LABS: ALBUMIN 3.1 G/DL (3.4-5.0); ANION GAP 10 (8-16); BLOOD UREA NITROGEN 24 MG/DL (7-18); BUN/CREATININE RATIO 28.2 (10.0-20.0); CALCIUM 8.6 MG/DL (8.5-10.1); CHLORIDE 102 MMOL/L (99-107); CREATININE 0.85 MG/DL (0.60-1.10); GLUCOSE 87 MG/DL (70-104); POTASSIUM 3.6 MMOL/L (3.5-5.1); SODIUM 139 MMOL/L (135-145); TOTAL CARBON DIOXIDE 27.3 MMOL/L (24-32); eCRCL 96 ML/MIN; eGFR > 90 ML/MIN
[2024-10-11] MEDS: OLANZapine **IM** 10 mg inj. IM ONE (03:47)
[2024-10-11 07:08] VITALS: BP 159/102; PULSE 100; RESP 12; TEMP 98.6; O2SAT 97
[2024-10-11] MEDS ORDERED: loperamide 2mg capsule PO PRN (07:35)
[2024-10-11] MEDS ORDERED: chlorproMAZINE 25mg tablet PO PRN (07:35)
[2024-10-11] MEDS ORDERED: magnesium hydroxide 30ml (MOM) UD suspension PO PRN (07:35)
[2024-10-11] MEDS ORDERED: acetaminophen 325mg tablet PO PRN (07:35)
[2024-10-11] MEDS ORDERED: diphenhydrAMINE 25mg capsule PO PRN (07:35)
[2024-10-11] MEDS ORDERED: mag hydrox/Alum hydrox/simeth 30ml oral suspension PO PRN (07:35)
[2024-10-11] MEDS: venlafaxine XR 75mg capsule (Q24H) PO SCH (09:10)
[2024-10-11] MEDS: hydrOXYzine 25 MG tablet PO PRN (09:10)
[2024-10-11 09:59] VITALS: RESP 12; O2SAT 97
--- NOTE | 2024-10-11 11:50 | HISTORY AND PHYSICAL ---
History of Present Illness Primary Medical Doctor: NONE History of Present Illness Pt admitted on 5150 GD, per hold, the crisis team were called multiple times by the patient family and [place] due to patient erratic behavior, was making nonsensical statements. During assessment today, patient noted to be very lethargic, not able to provide any history, on one-one monitoring, per report he had received zyprexa 10 mg IM at earlier today in ER. Obtained collateral information from his sister who endorsed pt was diagnosed with schizophrenia as an adult a couple of years ago, was , has 4 children of which 3 are adults, he had a good life but his a couple of years ago and since then has been dealing with medical and mental issues. was hearing voices and admitted at [facility], did well, started living by himself in a motel, later moved in with his family but it became difficult to take care of him and was send back to [facility], was doing very well but during his anniversary, stopped taking his medication for several weeks and started to decline again. Per sister there is family hx of psychiatric illness, their sister who is currently was Bipolar. Allergies: Coded Allergies: No Known Allergies (Unverified , 10/09/24) Past Psychiatric History Psychiatric History Numerous hospitalizations per sister Patient also have hx of alcoholism-couple of years back Past Medical History Past Medical History: Anxiety, Depression Past Surgical History Past Surgical History: noncontributory Past Family History Patient History: Depression FATHER No family history of mental disorder Past Social History Alcohol Use: Sober Drug Use: None Lives with: Family Lives In: Home Occupation: unemployed Personal History Uses Recreational Drugs: No Current Living Situation: Marital Status: Do you Work: No Developmental Histroy Place of : [place] in: [place] Number of siblings & ord: He has one living sibling Describe relationships within: good Has patient been abused: No Mental Status Exam OBSERVATION Appearnace: Disheveled Speech: Impoverished Eye Contact: Avoidant Motor Activity: Slowed Affect: Flat MOOD Mood: Depressed COGNITION Orientation Impairment: None Memory Impairment: Other Attention: Distracted PERCEPTION Hallucinations: Other THOUGHTS Suicidality: None Homicidality: None Delusions: Other BEHAVIOR Behavior: Withdrawn INSIGHT Insight: Poor Judgment: Poor Assessment/Plan Problems/Diagnosis: (1) Schizophrenia Additional Plan , urine protein =>300, 10/09/24 urine ketones =15, Toxicology negative for all substances of abuse. 10/10/24 MCHC =32.9, Neutrophils =19.9. 10/11/24 BUN =24, B BUN/creatinine ratio= 28.2, Albumin= 3.1. Medication management: Start Abilify 10 mg q am Seroquel 100 mg q hs Continue Effexor 150 mg daily Hydroxyzine 50 mg q 6 prn anxiety Continue one to one monitoring Hold: Continue 5150 Total time spend: 60 minutes including patient assessment, obtaining collateral, reviewing labs/notes and completing this note CODING VISIT-PSYCHIATRY Date of Service: Oct 11, 2024 Billing Provider: ALBERTO EVANS DNP Psych Common Visit Codes: [id number] INP/OBS CARE (High) Problem Qualifiers (1) Schizophrenia: Qualified Codes: F20.3 - Undifferentiated schizophrenia ALBERTO EVANS DNP Oct 11, 2024 11:50
[2024-10-11 18:31] VITALS: RESP 14; O2SAT 98
[2024-10-11 19:31] VITALS: BP 143/96; PULSE 107; RESP 16; TEMP 97.8; O2SAT 95
[2024-10-12 07:00] VITALS: RESP 14; O2SAT 16
[2024-10-12] MEDS: aripiprazole 10MG tablet PO SCH (08:00)
[2024-10-12] MEDS: QUEtiapine 25mg tablet PO SCH (08:00)
--- NOTE | 2024-10-12 16:44 | PROGRESS NOTE ---
Progress Note Dictate Providers to CC ~ Antibiotic Ordered?: No Objective Vitals Vital Signs Date Time Temp Pulse Resp B/P (MAP) Pulse Ox O2 Delivery O2 Flow Rate FiO2 10/12/24 07:00 16 Room Air 0.0 10/12/24 07:00 14 10/11/24 19:31 97.8 107 143/96 (112) Lab Results: 10/10/24 2222 10/11/24 0157 Problem\\Assessment\\Plan Problems/Diagnosis: (1) Schizophrenia Psychiatrist's Progress Note Date of Service: Oct 12, 2024 Notes History of Present Illness Pt admitted on 5150 GD, per hold, the crisis team were called multiple times by the patient family and Shascom due to patient erratic behavior, was making nonsensical statements. During assessment today, patient noted to be very lethargic, not able to provide any history, on one-one monitoring, per report he had received zyprexa 10 mg IM at earlier today in ER. Obtained collateral information from his sister who endorsed pt was diagnosed with schizophrenia as an adult a couple of years ago, was , has 4 children of which 3 are adults, he had a good life but his a couple of years ago and since then has been dealing with medical and mental issues. was hearing voices and admitted at [facility], did well, started living by himself in a motel, later moved in with his family but it became difficult to take care of him and was send back to [facility], was doing very well but during his anniversary, stopped taking his medication for several weeks and started to decline again. Per sister there is family hx of psychiatric illness, their sister who is currently was Bipolar. Assessment: patient evaluated in the conference room, walking very slowly, ambulates without any ict sales assistant, speech is very soft and hesitant, patient presents as alert but still tired, states he woke up clear headed, " stopping my meds put me here" does not remember his medications, wants to get better, noted to have thought blocking, sometimes mumbling to self, per chart note/patient refused his medication this morning even though he states he wants to get better. Agreed to take meds if crashed, per report, patient symptoms seems to worsen as the day progressed. Was not talking or doing anything much. One time dose of Ativan 1 mg ordered. Will continue to assess patient daily and adjust treatment as needed to stabilize patient. Mental Status Exam Appearance: wearing green scrubs Speech: soft. low Eye Contact: fair Motor Activity: Slowed Affect: Flat Mood: Depressed Orientation Impairment: None Memory Impairment: Other Attention: Normal Hallucinations: Other Suicidality: None Homicidality: None Delusions: Other Behavior: Withdrawn Insight: Poor Judgment: Poor LBS , urine protein =>300, 10/09/24 urine ketones =15, Toxicology negative for all substances of abuse. 10/10/24 MCHC =32.9, Neutrophils =19.9. 10/11/24 BUN =24, B BUN/creatinine ratio= 28.2, Albumin= 3.1. Medication management: Abilify 10 mg q am Seroquel 100 mg q hs Effexor 150 mg daily Hydroxyzine 50 mg q 6 prn anxiety Continue one to one monitoring Hold: Vol Total time spend: 50 minutes including patient assessment, reviewing labs/notes , consulting with SW/RN and completing this note CODING VISIT-PSYCHIATRY Date of Service: Oct 12, 2024 Billing Provider: ALBERTO EVANS DNP Psych Common Visit Codes: [id number] INP/OBS CARE(Mod) Problem Qualifiers (1) Schizophrenia: Qualified Codes: F20.3 - Undifferentiated schizophrenia ALBERTO EVANS DNP Oct 12, 2024 16:44
[2024-10-12] MEDS: LORazepam 1 MG tablet PO ONE (17:23)
--- NOTE | 2024-10-12 18:31 | HISTORY AND PHYSICAL ---
History & Physical Providers to CC ~ History of Present Illness Reason for Admit\Complaint: Psychoses on a 5150 hold History of Present Illness And I had to ask him This is the hospitalist history and physical exam on patients hospitalized at [facility]. Patient is brought here for acute psychoses. The patient is very soft-spoken and has a ask him to repeat what he told me several times. The patient has no acute medical complaints or concerns and there were none voiced by nursing staff at this juncture. Allergies: Coded Allergies: No Known Allergies (Unverified , 10/09/24) Home Medications Home Medications Active Trazodone HCl 100 Mg Tablet 2 Tab PO HS 30 Days Trazodone HCl 50 Mg Tablet 1 Mg PO HS 1 TABLET WITH 200 MG TABLET Reported Losartan Potassium 25 Mg Tablet 1 Tab PO DAILY [Hydrochlorothiazide] 12.5 Tab 12.5 Mg PO Bupropion Xl (Bupropion HCl) 300 Mg Tab.er.24h 1 Tab PO QAM Prazosin Hcl 2 Mg Capsule 1 Cap PO DAILY Hydroxyzine HCl 50 Mg Tablet 1 Tab PO BID PRN Effexor Xr (Venlafaxine HCl) 150 Mg Cap.er.24h 1 Cap PO DAILY 30 Days Past Medical History Past Medical History Zey-dpfneno-auetvcyzd diabetes mellitus, schizophrenia Past Surgical History Surgical History Comment Left knee surgery, appendectomy Family History Family History: Depression FATHER No family history of mental disorder Past Social History Social History Comment Chews tobacco, sober, denies illicit drug use ROS ROS Except for positives in the HPI the rest of the 14 point review systems is negative Exam Vitals: Vital Signs Date Time Temp Pulse Resp B/P (MAP) Pulse Ox O2 Delivery O2 Flow Rate FiO2 10/12/24 07:00 16 Room Air 0.0 10/12/24 07:00 14 10/11/24 19:31 97.8 107 143/96 (112) General: Gen. No acute distress alert and oriented - very soft-spoken Lungs clear to ascultation bilaterally, no wheezes rales or rhonchi appreciated Heart normal sinus rhythm no murmurs rubs or clicks noted Abdomen soft nontender bowel sounds are normoactive Lower extremities no clubbing cyanosis, nor edema appreciated bilaterally Diagnostic Data Last Recorded Lab Results: 10/10/24 2222 10/11/24 0157 Problems: (1) Schizophrenia Additional Plan # psychoses likely secondary to decompensated schizophrenia Followed by Psychiatry # hypokalemia-resolved # gyd-eokyyei-wqkxjjhys diabetes mellitus Blood sugars has been controlled on the fasting daily labs Hemoglobin A1c is ordered is ordered No acute medical complaints or concerns voiced by the patient nor by nursing The hospitalist service will continue to follow the patient Date of Service: Oct 12, 2024 Billing Provider: TROY FERRARO DO Common Visit Codes: [id number] INP/OBS CARE (LOW) Problem Qualifiers (1) Schizophrenia: 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
[2024-10-12] MEDS ORDERED: NICOTINE POLACRILEX 2 MG LOZENGE BC PRN (18:40)
[2024-10-12 19:00] VITALS: RESP 16; O2SAT 97
[2024-10-12 20:00] VITALS: BP 150/97; PULSE 83; RESP 16; TEMP 96.3; O2SAT 98
[2024-10-12] MEDS: venlafaxine 37.5mg tablet PO SCH (20:19)
[2024-10-13 07:00] VITALS: BP 134/84; PULSE 84; RESP 16; TEMP 98.5; O2SAT 93
[2024-10-13 10:30] VITALS: RESP 15
[2024-10-13 19:00] VITALS: RESP 18; O2SAT 92
[2024-10-13 20:00] VITALS: BP 135/89; PULSE 89; RESP 18; TEMP 96.6; O2SAT 92
[2024-10-13] MEDS: QUEtiapine 25mg tablet PO SCH (20:24)
[2024-10-13] MEDS: traZODone 50mg tablet PO PRN (21:20)
--- NOTE | 2024-10-13 21:57 | PROGRESS NOTE ---
Progress Note Dictate Providers to CC ~ Antibiotic Ordered?: No Objective Vitals Vital Signs Date Time Temp Pulse Resp B/P (MAP) Pulse Ox O2 Delivery O2 Flow Rate FiO2 10/13/24 10:30 15 Room Air 10/13/24 07:00 98.5 84 134/84 (101) 93 10/12/24 07:00 0.0 Lab Results: 10/10/24 2222 10/11/24 0157 Problem\Assessment\Plan Problems/Diagnosis: (1) Schizophrenia Psychiatrist's Progress Note Date of Service: Oct 13, 2024 Notes Pt admitted on 5150 GD, per hold, the crisis team were called multiple times by the patient family and Shascom due to patient erratic behavior, was making nonsensical statements. During assessment today, patient noted to be very lethargic, not able to provide any history, on one-one monitoring, per report he had received zyprexa 10 mg IM at earlier today in ER. Obtained collateral information from his sister who endorsed pt was diagnosed with schizophrenia as an adult a couple of years ago, was , has 4 children of which 3 are adults, he had a good life but his a couple of years ago and since then has been dealing with medical and mental issues. was hearing voices and admitted at [facility], did well, started living by himself in a motel, later moved in with his family but it became difficult to take care of him and was send back to [facility], was doing very well but during his anniversary, stopped taking his medication for several weeks and started to decline again. Per sister there is family hx of psychiatric illness, their sister who is currently was Bipolar. Assessment: patient evaluated in the conference room, noted to have motor retardation, poverty of speech, mostly mumbles under his breath, ambulates without medical claims assistant but seems unsteady , in on to one due to his behaviors, per staff, he needs constant redirections, wonders in other patient room, needs help with ADL. medication is given with yogurt. Will adjunct wellbutrin 75 mg q am, may help clear him up., Mental Status Exam Appearance: wearing green scrubs Speech: soft. low Eye Contact: fair Motor Activity: Slowed Affect: Flat Mood: Depressed Orientation Impairment: None Memory Impairment: Other Attention: Normal Hallucinations: Other Suicidality: None Homicidality: None Delusions: Other Behavior: Withdrawn Insight: Poor Judgment: Poor LBS , urine protein =>300, 10/09/24 urine ketones =15, Toxicology negative for all substances of abuse. 10/10/24 MCHC =32.9, Neutrophils =19.9. 10/11/24 BUN =24, B BUN/creatinine ratio= 28.2, Albumin= 3.1. Medication management: Adjunct wellbutrin 75 mg Abilify 10 mg q am Seroquel 100 mg q hs Effexor 150 mg daily Hydroxyzine 50 mg q 6 prn anxiety Continue one to one monitoring Hold: Vol Total time spend: 50 minutes including patient assessment, reviewing labs/notes , consulting with SW/RN and completing this note CODING VISIT-PSYCHIATRY Date of Service: Oct 13, 2024 Billing Provider: ALBERTO EVANS DNP Psych Common Visit Codes: [id number] INP/OBS CARE(High) Problem Qualifiers (1) Schizophrenia: Qualified Codes: F20.3 - Undifferentiated schizophrenia ALBERTO EVANS DNP Oct 13, 2024 21:57
[2024-10-13] MEDS: OLANZapine 2.5MG tablet PO ONE (22:11)
[2024-10-14 07:00] VITALS: BP 133/97; PULSE 81; RESP 16; TEMP 97.2; O2SAT 93
[2024-10-14] MEDS: buPROPion 75mg tablet PO SCH (07:55)
--- NOTE | 2024-10-14 09:09 | PROGRESS NOTE ---
Progress Note Dictate Providers to CC ~ Antibiotic Ordered?: No Objective Vitals Vital Signs Date Time Temp Pulse Resp B/P (MAP) Pulse Ox O2 Delivery O2 Flow Rate FiO2 10/14/24 07:00 97.2 81 16 133/97 (109) 93 Room Air 10/12/24 07:00 0.0 Lab Results: 10/10/24 2222 10/11/24 0157 Problem\\Assessment\\Plan Problems/Diagnosis: (1) Schizophrenia Psychiatrist's Progress Note Date of Service: Oct 14, 2024 Notes Pt admitted on 5150 GD, per hold, the crisis team were called multiple times by the patient family and Shascom due to patient erratic behavior, was making nonsensical statements. During assessment today, patient noted to be very lethargic, not able to provide any history, on one-one monitoring, per report he had received zyprexa 10 mg IM at earlier today in ER. Obtained collateral information from his sister who endorsed pt was diagnosed with schizophrenia as an adult a couple of years ago, was , has 4 children of which 3 are adults, he had a good life but his a couple of years ago and since then has been dealing with medical and mental issues. was hearing voices and admitted at [facility], did well, started living by himself in a motel, later moved in with his family but it became difficult to take care of him and was send back to [facility], was doing very well but during his anniversary, stopped taking his medication for several weeks and started to decline again. Per sister there is family hx of psychiatric illness, their sister who is currently was Bipolar. Assessment: patient evaluated in the conference room, he required prompts to sit down, was speaking in soft low voice, report feeling confused, " my brain feels cloudy, I want to get better" affect is flat, he continues to need assistant controller with ADL's. Wellbutrin initiated yesterday with the first dose today. Will also reduce Abilify dose to 5 mg. Still adjusting medication to stabilize, premature discharge will most likely cause further deterioration and readmission Mental Status Exam Appearance: wearing green scrubs Speech: soft. low Eye Contact: fair Motor Activity: Slowed Affect: Flat Mood: Depressed, confused Orientation Impairment: None Memory Impairment: Other Attention: distracted easily Hallucinations: Other Suicidality: None Homicidality: None Delusions: Other Behavior: impulsive Insight: Poor Judgment: Poor LBS , urine protein =>300, 10/09/24 urine ketones =15, Toxicology negative for all substances of abuse. 10/10/24 MCHC =32.9, Neutrophils =19.9. 10/11/24 BUN =24, B BUN/creatinine ratio= 28.2, Albumin= 3.1. Medication management: Adjunct wellbutrin 75 mg Reduce Abilify dose to 5 mg daily Seroquel 100 mg q hs Effexor 150 mg daily Hydroxyzine 50 mg q 6 prn anxiety Continue one to one monitoring Hold: converted to 5250 Total time spend: 50 minutes including patient assessment, reviewing labs/notes , consulting with SW/RN and completing this note CODING VISIT-PSYCHIATRY Date of Service: Oct 14, 2024 Billing Provider: ALBERTO EVANS DNP Psych Common Visit Codes: [id number] INP/OBS CARE(High) Problem Qualifiers (1) Schizophrenia: Qualified Codes: F20.3 - Undifferentiated schizophrenia ALBERTO EVANS DNP Oct 14, 2024 09:09
--- NOTE | 2024-10-14 17:46 | PROGRESS NOTE ---
Daily Progress Note Providers to CC ~ Antibiotic Timeout Antibiotic Ordered?: No Subjective Patient has no new complaints. Resting comfortably Objective Vital Signs Date Time Temp Pulse Resp B/P (MAP) Pulse Ox O2 Delivery O2 Flow Rate FiO2 10/14/24 07:00 97.2 81 16 133/97 (109) 93 Room Air 10/12/24 07:00 0.0 Result Diagram: 10/10/24 2222 10/11/24 0157 Awake alert cooperative in no acute distress HEENT normocephalic atraumatic extraocular movements are intact Neck supple, no JVD Chest: Clear to auscultation, no wheezes crackles rhonchi Heart regular rate rhythm, no murmur or gallop rub Extremities no cyanosis clubbing or edema Neuro exam is nonfocal Other Results Medications reviewed Problem\Assessment\Plan Problems/Diagnosis: (1) Schizophrenia 54 years old male admitted at [facility] ON A 5150 hold. Crisis workers were called multiple times due to patient having an erratic behavior and making nonsensical statements. Schizophrenia: Treat per psych recommendations Patient has no acute medical issues. I will sign off. Hospitalist team will continue to follow the patient as per policy/protocol. Please contact the hospitalist team for any change in patient's medical condition. Date of Service: Oct 15, 2024 Billing Provider: PATRICIA ROBERT MD Common Visit Codes: [id number] INP/OBS CARE(LOW) Problem Qualifiers (1) Schizophrenia: Qualified Codes: F20.3 - Undifferentiated schizophrenia PATRICIA ROBERT MD Oct 14, 2024 17:46
[2024-10-14 19:00] VITALS: RESP 18; O2SAT 94
[2024-10-14 19:06] VITALS: BP 146/95; PULSE 18; RESP 18; TEMP 96.3; O2SAT 94
[2024-10-15 07:00] VITALS: RESP 14; O2SAT 100
[2024-10-15 08:00] VITALS: BP 124/85; PULSE 71; RESP 14; TEMP 98; O2SAT 100
[2024-10-15] MEDS: acetaminophen 325mg tablet PO PRN (13:34)
[2024-10-15 19:00] VITALS: RESP 20; O2SAT 96
[2024-10-15 20:00] VITALS: BP 117/77; PULSE 100; RESP 20; TEMP 97.6; O2SAT 96
[2024-10-16 07:00] VITALS: RESP 14; O2SAT 95
[2024-10-16 08:00] VITALS: BP 115/80; PULSE 72; RESP 14; TEMP 98.6; O2SAT 95
--- NOTE | 2024-10-16 11:23 | PROGRESS NOTE ---
Progress Note Dictate Providers to CC ~ Central Line/PICC still needed: N\\A Antibiotic Ordered?: No MRSA Education MRSA Education Provided to pt: No Objective Vitals Vital Signs Date Time Temp Pulse Resp B/P (MAP) Pulse Ox O2 Delivery O2 Flow Rate FiO2 10/16/24 08:00 98.6 72 14 115/80 (92) 95 Room Air 10/15/24 07:00 0.0 Psychiatrist's Progress Note Date of Service: Oct 16, 2024 Notes Pt admitted on 5149 GD, per hold, the crisis team were called multiple times by the patient family and Shascom due to patient erratic behavior, was making nonsensical statements. During assessment today, patient noted to be very lethargic, not able to provide any history, on one-one monitoring, per report he had received zyprexa 10 mg IM at earlier today in ER. Obtained collateral information from his sister who endorsed pt was diagnosed with schizophrenia as an adult a couple of years ago, was , has 4 children of which 3 are adults, he had a good life but his a couple of years ago and since then has been dealing with medical and mental issues. was hearing voices and admitted at [facility], did well, started living by himself in a motel, later moved in with his family but it became difficult to take care of him and was send back to [facility], was doing very well but during his anniversary, stopped taking his medication for several weeks and started to decline again. Per sister there is family hx of psychiatric illness, their sister who is currently was Bipolar. Assessment: patient evaluated in the observation room. The patient endorses "I am doing okay." "I am here because of my brain, its all scrambled. The patient endorses it is getting a little bit better. Patient endorses adequate sleep and food intake. Per staff report the patient is medication compliant. The patient continues to need assistant hall director with ADL's. Still adjusting medication to stabilize, premature discharge will most likely cause further deterioration and readmission. Mental Status Exam Appearance: wearing green scrubs Speech: soft. low Eye Contact: poor Motor Activity: Slowed Affect: Flat Mood: Depressed, confused Orientation Impairment: None Memory Impairment: Other Attention: distracted easily Hallucinations: Other Suicidality: None Homicidality: None Delusions: Other Behavior: impulsive Insight: Poor Judgment: Poor LBS , urine protein =>300, 10/09/24 urine ketones =15, Toxicology negative for all substances of abuse. 10/10/24 MCHC =32.9, Neutrophils =19.9. 10/11/24 BUN =24, B BUN/creatinine ratio= 28.2, Albumin= 3.1. Medication management: Change wellbutrin 300mg po daily Abilify dose to 5 mg daily Seroquel 100 mg q hs Effexor 150 mg daily Hydroxyzine 50 mg q 6 prn anxiety Continue one to one monitoring Hold: converted to 5250 Total time spend: 40 minutes including patient assessment, reviewing labs/notes , consulting with RN and documentation. CODING VISIT-PSYCHIATRY Date of Service: Oct 16, 2024 Billing Provider: JOSELYN DAVISON APRN Psych Common Visit Codes: [id number] INP/OBS CARE(Mod) JOSELYN DAVISON APRN Oct 16, 2024 11:23
--- NOTE | 2024-10-16 11:54 | PROGRESS NOTE ---
Progress Note Dictate Providers to CC ~ Antibiotic Ordered?: No Objective Vitals Vital Signs Date Time Temp Pulse Resp B/P (MAP) Pulse Ox O2 Delivery O2 Flow Rate FiO2 10/16/24 08:00 98.6 72 14 115/80 (92) 95 Room Air 10/15/24 07:00 0.0 Problem\Assessment\Plan Problems/Diagnosis: (1) Schizophrenia Psychiatrist's Progress Note Date of Service: Oct 15, 2024 Notes Pt admitted on 5150 GD, per hold, the crisis team were called multiple times by the patient family and Shascom due to patient erratic behavior, was making nonsensical statements. During assessment today, patient noted to be very lethargic, not able to provide any history, on one-one monitoring, per report he had received zyprexa 10 mg IM at earlier today in ER. Obtained collateral information from his sister who endorsed pt was diagnosed with schizophrenia as an adult a couple of years ago, was , has 4 children of which 3 are adults, he had a good life but his a couple of years ago and since then has been dealing with medical and mental issues. was hearing voices and admitted at [facility], did well, started living by himself in a motel, later moved in with his family but it became difficult to take care of him and was send back to [facility], was doing very well but during his anniversary, stopped taking his medication for several weeks and started to decline again. Per sister there is family hx of psychiatric illness, their sister who is currently was Bipolar. Assessment: patient evaluated in the conference room, presented with a flat affect, speech low , hesitant and soft, seems to be steadier on his feet, a little bit more focused, complains that he brain still feels foggy but not as bad as yesterday, He denies suicidal/homicidal ideation. He denies experiencing hallucinations. There seems to be some improvement in patient, he was very confused, needeing constant redirection when he was intially admitted, now he is able to articulate concerns even though he still needs prompts to take his medications and complete ADL's. Medication adjusted just a few days ago, may take some time before significant improvement is seen in patient. Will continue to assess him daily and adjust treatment as needed to stabilize patient Mental Status Exam Appearance: wearing green scrubs Speech: soft. low Eye Contact: fair Motor Activity: Slowed Affect: Flat Mood: foggy Orientation Impairment: None Memory Impairment: Other Attention: better, focus Hallucinations: denies Suicidality: denies Homicidality: denies Delusions: none Behavior: cooperative Insight: Poor Judgment: Poor LBS , urine protein =>300, 10/09/24 urine ketones =15, Toxicology negative for all substances of abuse. 10/10/24 MCHC =32.9, Neutrophils =19.9. 10/11/24 BUN =24, B BUN/creatinine ratio= 28.2, Albumin= 3.1. Medication management: Wellbutrin 75 mg Abilify 5 mg daily Seroquel 100 mg q hs Effexor 150 mg daily Hydroxyzine 50 mg q 6 prn anxiety Continue one to one monitoring Hold: converted to 5250 Total time spend: 50 minutes including patient assessment, reviewing labs/notes , consulting with SW/RN and completing this note CODING VISIT-PSYCHIATRY Date of Service: Oct 15, 2024 Billing Provider: ALBERTO EVANS DNP Psych Common Visit Codes: [id number] INP/OBS CARE(Mod) Problem Qualifiers (1) Schizophrenia: Qualified Codes: F20.3 - Undifferentiated schizophrenia ALBERTO EVANS DNP Oct 16, 2024 11:54
[2024-10-16 19:27] VITALS: RESP 14; O2SAT 95
[2024-10-16 20:00] VITALS: BP 134/94; PULSE 83; RESP 18; TEMP 98.1; O2SAT 97
--- NOTE | 2024-10-16 21:53 | PROGRESS NOTE ---
Daily Progress Note Providers to CC ~ Antibiotic Timeout Antibiotic Ordered?: No Subjective This is the hospitalist progress note on patients hospitalized at [facility]. The patient has no acute medical complaints or concerns in his resting comfortably in bed Objective Vital Signs Date Time Temp Pulse Resp B/P (MAP) Pulse Ox O2 Delivery O2 Flow Rate FiO2 10/16/24 20:00 98.1 83 18 134/94 (107) 97 Room Air 10/16/24 19:27 0.0 Gen. No acute distress alert and oriented Lungs clear to ascultation bilaterally, no wheezes rales or rhonchi appreciated Heart normal sinus rhythm no murmurs rubs or clicks noted Abdomen soft nontender bowel sounds are normoactive Lower extremities no clubbing cyanosis, nor edema appreciated bilaterally Problem\Assessment\Plan Problems/Diagnosis: (1) Schizophrenia 54 years old male admitted at [facility] ON A 5150 hold. # Schizophrenia: Treat per psych recommendations # hypokalemia-resolved # [id number]-ytyvycvxc diabetes mellitus Hemoglobin A1c is 5.6 Patient has no acute medical issues. The hospitalist service will continue to follow the patient Date of Service: Oct 16, 2024 Billing Provider: TROY FERRARO DO Common Visit Codes: [id number] INP/OBS CARE(LOW) Problem Qualifiers (1) Schizophrenia: Qualified Codes: F20.3 - Undifferentiated schizophrenia TROY FERRARO DO Oct 16, 2024 21:53
[2024-10-17 07:00] VITALS: RESP 16; O2SAT 96
[2024-10-17 08:00] VITALS: BP 136/99; PULSE 74; RESP 16; TEMP 97.5; O2SAT 96
[2024-10-17] MEDS: BUPROPION HCL 150MG XL 24 HR 150 MG TAB PO SCH (08:14)
--- NOTE | 2024-10-17 10:47 | PROGRESS NOTE ---
Progress Note Dictate Providers to CC ~ Central Line/PICC still needed: N\\A Antibiotic Ordered?: No MRSA Education MRSA Education Provided to pt: No Objective Vitals Vital Signs Date Time Temp Pulse Resp B/P (MAP) Pulse Ox O2 Delivery O2 Flow Rate FiO2 10/17/24 08:00 97.5 74 16 136/99 (111) 96 Room Air 10/16/24 19:27 0.0 Psychiatrist's Progress Note Date of Service: Oct 17, 2024 Notes Pt admitted on 5149 GD, per hold, the crisis team were called multiple times by the patient family and Shascom due to patient erratic behavior, was making nonsensical statements. During assessment today, patient noted to be very lethargic, not able to provide any history, on one-one monitoring, per report he had received zyprexa 10 mg IM at earlier today in ER. Obtained collateral information from his sister who endorsed pt was diagnosed with schizophrenia as an adult a couple of years ago, was , has 4 children of which 3 are adults, he had a good life but his a couple of years ago and since then has been dealing with medical and mental issues. was hearing voices and admitted at [facility], did well, started living by himself in a motel, later moved in with his family but it became difficult to take care of him and was send back to [facility], was doing very well but during his anniversary, stopped taking his medication for several weeks and started to decline again. Per sister there is family hx of psychiatric illness, their sister who is currently was Bipolar. Assessment: patient evaluated in the observation room. The patient was actively sitting in rec room engaging with peers and staff. The patient endorses "doing okay." My brain was all over but it is better today." Patient endorses no worsening mental health symptoms. Patient endorses adequate sleep and food intake. Per staff report the patient is medication compliant. LOS was discontinued. The patient has shown improvement since admission. Still adjusting medication to stabilize, premature discharge will most likely cause further deterioration and readmission. Mental Status Exam Appearance: wearing green scrubs Speech: soft. low Eye Contact: normal Motor Activity: Slowed Affect: Congruent with mood Mood: doing okay Orientation Impairment: None Memory Impairment: Other Attention: full Hallucinations: Other Suicidality: None Homicidality: None Delusions: Other Behavior: cooperative Insight: Poor Judgment: Poor LBS , urine protein =>300, 10/09/24 urine ketones =15, Toxicology negative for all substances of abuse. 10/10/24 MCHC =32.9, Neutrophils =19.9. 10/11/24 BUN =24, B BUN/creatinine ratio= 28.2, Albumin= 3.1. Medication management: Change wellbutrin 300mg po daily Abilify dose to 5 mg daily Seroquel 100 mg q hs Effexor 150 mg daily Hydroxyzine 50 mg q 6 prn anxiety Continue one to one monitoring Hold: converted to 5250 Total time spend: 30 minutes including patient assessment, reviewing labs/notes , consulting with RN and documentation. CODING VISIT-PSYCHIATRY Date of Service: Oct 17, 2024 Billing Provider: JOSELYN DAVISON APRN Psych Common Visit Codes: [id number] INP/OBS CARE(Mod) JOSELYN DAVISON APRN Oct 17, 2024 10:47
[2024-10-17 19:00] VITALS: RESP 16; O2SAT 94
[2024-10-17 20:00] VITALS: BP 133/88; PULSE 75; RESP 16; TEMP 97.8; O2SAT 95
[2024-10-17] MEDS: aripiprazole 5mg tablet PO SCH (20:04)
[2024-10-18 07:00] VITALS: BP 125/82; PULSE 80; RESP 16; TEMP 98.1; O2SAT 97
--- NOTE | 2024-10-18 11:01 | PROGRESS NOTE ---
Progress Note Dictate Providers to CC ~ Antibiotic Ordered?: No Objective Vitals Vital Signs Date Time Temp Pulse Resp B/P (MAP) Pulse Ox O2 Delivery O2 Flow Rate FiO2 10/17/24 20:00 97.8 75 16 133/88 (103) 95 Room Air 10/16/24 19:27 0.0 Problem\\Assessment\\Plan Problems/Diagnosis: (1) Schizophrenia Psychiatrist's Progress Note Date of Service: Oct 18, 2024 Notes Pt admitted on 5150 GD, per hold, the crisis team were called multiple times by the patient family and Shascom due to patient erratic behavior, was making nonsensical statements. During assessment today, patient noted to be very lethargic, not able to provide any history, on one-one monitoring, per report he had received zyprexa 10 mg IM at earlier today in ER. Obtained collateral information from his sister who endorsed pt was diagnosed with schizophrenia as an adult a couple of years ago, was , has 4 children of which 3 are adults, he had a good life but his a couple of years ago and since then has been dealing with medical and mental issues. was hearing voices and admitted at [facility], did well, started living by himself in a motel, later moved in with his family but it became difficult to take care of him and was send back to [facility], was doing very well but during his anniversary, stopped taking his medication for several weeks and started to decline again. Per sister there is family hx of psychiatric illness, their sister who is currently was Bipolar. Assessment: patient evaluated in the conference room, casual dressed in home attire, normal gait, alert to day, place and situation, presents as focused,articulate, states his head feels clear but have difficulties with sleep, gets up frequently in the night and finds it hard to fall back to sleep, hears his own voice when others talk to him, sometimes hear birds chirping, he denies suicidal/homocidal ideation. Discussed treatment options with him. will increase seroquel dose to 150 mg to facilitate restful sleep. Will continue to assess him daily and adjust treatment as needed to stabilize patient. Premature discharge will most likely result in readmission. Mental Status Exam Appearance: casual dressed in home clothing Speech: soft. low Eye Contact: good Motor Activity: Normal Affect: congruent Mood: " better" Orientation Impairment: None Memory Impairment: none Attention: normal Hallucinations: audio Suicidality: denies Homicidality: denies Delusions: none Behavior: cooperative Insight: fair Judgment: fair LBS , urine protein =>300, 10/09/24 urine ketones =15, Toxicology negative for all substances of abuse. 10/10/24 MCHC =32.9, Neutrophils =19.9. 10/11/24 BUN =24, B BUN/creatinine ratio= 28.2, Albumin= 3.1. Medication management: Increase seroquel dose to 150 hs Wellbutrin XL 300 q am Abilify 5 mg daily Effexor 150 mg daily Hydroxyzine 50 mg q 6 prn anxiety Continue one to one monitoring Hold: converted to 5250 Total time spend: 55 minutes including patient assessment, reviewing labs/notes, prescribing meds, consulting with SW/RN and completing this note CODING VISIT-PSYCHIATRY Date of Service: Oct 18, 2024 Billing Provider: ALBERTO EVANS DNP Psych Common Visit Codes: [id number] INP/OBS CARE(Mod) Problem Qualifiers (1) Schizophrenia: Qualified Codes: F20.3 - Undifferentiated schizophrenia ALBERTO EVANS DNP Oct 18, 2024 11:01
[2024-10-18 19:00] VITALS: RESP 18; O2SAT 96
--- NOTE | 2024-10-18 19:08 | PROGRESS NOTE- Residence ---
Progress Note - Resident Providers to CC Resident Creating Document: CONCHITA LOPEZ, RES ~ Antibiotic Timeout Antibiotic Ordered?: No Subjective The patient was seen and examined at bedside today. He has no new complaints. Objective Vital Signs Date Time Temp Pulse Resp B/P (MAP) Pulse Ox O2 Delivery O2 Flow Rate FiO2 10/18/24 07:00 16 97 Room Air 10/18/24 07:00 98.1 80 125/82 (96) 10/16/24 19:27 0.0 Gen. No acute distress alert and oriented, xanthelasmas present Lungs clear to ascultation bilaterally, no wheezes rales or rhonchi appreciated Heart normal sinus rhythm no murmurs rubs or clicks noted Abdomen soft nontender bowel sounds are normoactive Lower extremities no clubbing cyanosis, nor edema appreciated bilaterally Assessment Assessment A 54 years old male admitted at [facility] on a 5150 hold. Plan Plan Schizophrenia Treatment as per Psychiatry. Hypokalemia, resolved Follow up with CMP tomorrow. Fzm-[id number]-twikqzvkp diabetes mellitus Hemoglobin A1c is 5.6. Xanthelasmas Follow up with lipid panel tomorrow and start statins if needed. Disposition: Hospitalist service will continue to the follow the patient during the course of his hospital stay. Conchiat Lopez MD Internal Medicine Resident, PGY-1 Date of Service: Oct 18, 2024 Billing Provider: KATELYN STEELE MD Common Visit Codes: [id number] INP/OBS CARE(MOD) CONCHITA LOPEZ, RES Oct 18, 2024 19:08 KATELYN STEELE MD Oct 20, 2024 17:27
[2024-10-18] MEDS: QUEtiapine 25mg tablet PO SCH (19:53)
[2024-10-18] MEDS: aripiprazole 2MG tablet PO SCH (19:54)
[2024-10-18] MEDS: quetiapine 100mg tablet PO SCH (19:54)
[2024-10-18 20:00] VITALS: BP 131/88; PULSE 93; RESP 18; TEMP 98.2; O2SAT 96
[2024-10-18] MEDS ORDERED: quetiapine 100mg tablet PO SCH (21:00)
[2024-10-19 07:00] VITALS: RESP 12; O2SAT 98
[2024-10-19 08:00] VITALS: BP 101/67; PULSE 76; RESP 12; TEMP 97.2; O2SAT 98
[2024-10-19 09:02] LABS: BASOPHILS # (AUTO) 0.1 X10'3 (0-0.2); BASOPHILS % (AUTO) 0.7 % (0-1); EOSINOPHILS # (AUTO) 0.1 X10'3 (0-0.9); EOSINOPHILS % (AUTO) 1.8 % (0-6); HEMATOCRIT 45.9 % (42.0-52.0); HEMOGLOBIN 15.5 g/dl (14.0-17.9); LYMPHOCYTES # (AUTO) 1.7 X10'3 (1.1-4.8); MEAN CORPUSCULAR HGB CONC 33.8 g/dL (33.0-36.5); MEAN CORPUSCULAR VOLUME 85.6 FL (78-98); MEAN PLATELET VOLUME 9.3 FL (7.4-10.4); MONOCYTES # (AUTO) 0.6 X10'3 (0-0.9); MONOCYTES % (AUTO) 8.3 % (2-12); NEUTROPHILS # (AUTO) 4.8 X10'3 (1.8-7.7); NEUTROPHILS % (AUTO) 66.2 % (42-75); PLATELET COUNT 212 X10'3 (140-440); RED BLOOD COUNT 5.37 X10'6 (4.70-6.10); RED CELL DISTRIBUTION WIDTH 14.7 % (11.5-14.5); WHITE BLOOD COUNT 7.3 X10'3 (4.5-11.0)
[2024-10-19 09:22] LABS: ALANINE AMINOTRANSFERASE 37 U/L (12-78); ALBUMIN 2.9 G/DL (3.4-5.0); ALBUMIN/GLOBULIN RATIO 0.8 (1.1-1.5); ALKALINE PHOSPHATASE 59 IU/L (46-116); ANION GAP 7 (8-16); ASPARTATE AMINO TRANSFERASE 11 U/L (10-37); BILIRUBIN,TOTAL 0.3 MG/DL (0.1-1.0); BLOOD UREA NITROGEN 11 MG/DL (7-18); BUN/CREATININE RATIO 13.1 (10.0-20.0); CALCIUM 8.4 MG/DL (8.5-10.1); CHLORIDE 108 MMOL/L (99-107); CHOLESTEROL 192 MG/DL (0-200); CREATININE 0.84 MG/DL (0.60-1.10); GLUCOSE 98 MG/DL (70-104); LDL CHOLESTEROL 117 MG/DL (50-100); POTASSIUM 4.4 MMOL/L (3.5-5.1); SODIUM 140 MMOL/L (135-145); TOTAL CARBON DIOXIDE 25.3 MMOL/L (24-32); TOTAL PROTEIN 6.4 G/DL (6.4-8.2); TRIGLYCERIDES 287 MG/DL (20-135); eCRCL 104 ML/MIN; eGFR > 90 ML/MIN
[2024-10-19 10:05] LABS: CHOL/HDL RATIO 4.3 (0.00-4.99); HDL CHOLESTEROL 45 MG/DL (35-60)
--- NOTE | 2024-10-19 11:49 | PROGRESS NOTE ---
Progress Note Dictate Providers to CC ~ Antibiotic Ordered?: No Objective Vitals Vital Signs Date Time Temp Pulse Resp B/P (MAP) Pulse Ox O2 Delivery O2 Flow Rate FiO2 10/19/24 08:00 97.2 76 12 101/67 (78) 98 Room Air 10/16/24 19:27 0.0 Lab Results: 10/19/24 0853 10/19/24 0853 Problem\\Assessment\\Plan Problems/Diagnosis: (1) Schizophrenia Psychiatrist's Progress Note Date of Service: Oct 19, 2024 Notes Pt admitted on 5150 GD, per hold, the crisis team were called multiple times by the patient family and Shascom due to patient erratic behavior, was making nonsensical statements. During assessment today, patient noted to be very lethargic, not able to provide any history, on one-one monitoring, per report he had received zyprexa 10 mg IM at earlier today in ER. Obtained collateral information from his sister who endorsed pt was diagnosed with schizophrenia as an adult a couple of years ago, was , has 4 children of which 3 are adults, he had a good life but his a couple of years ago and since then has been dealing with medical and mental issues. was hearing voices and admitted at [facility], did well, started living by himself in a motel, later moved in with his family but it became difficult to take care of him and was send back to [facility], was doing very well but during his anniversary, stopped taking his medication for several weeks and started to decline again. Per sister there is family hx of psychiatric illness, their sister who is currently was Bipolar. Assessment: patient evaluated in the conference room,denies any psychiatric symptoms, states his head is clear" feels more like myself again" more alert, no more hearing his voice coming from other people when they talk or birds, no SI/HI but repor still having difficulties with sleep, still gets up frequently, does not feel rested in the mornings. Patient states he is ok to have his seroquel dose increased to 300 mg hs. Will d/c abilify. No behavioral or safety concerns reported by staff. Paimaciel is showing good progress, will continue to assess him daily and adjust treatment as needed to further stabilize patient. Premature discharge will most likely result in readmission. Mental Status Exam Appearance: casual dressed in home clothing Speech: soft. low Eye Contact: good Motor Activity: Normal Affect: congruent Mood: "good" Orientation Impairment: None Memory Impairment: none Attention: normal Hallucinations: denies Suicidality: denies Homicidality: denies Delusions: none Behavior: cooperative Insight: fair Judgment: fair LBS , urine protein =>300, 10/09/24 urine ketones =15, Toxicology negative for all substances of abuse. 10/10/24 MCHC =32.9, Neutrophils =19.9. 10/11/24 BUN =24, B BUN/creatinine ratio= 28.2, Albumin= 3.1. Medication management: Increase seroquel dose to 300 hs Wellbutrin XL 300 q am D/c Abilify 5 mg daily Effexor 150 mg daily Hydroxyzine 50 mg q 6 prn anxiety Continue one to one monitoring Hold: converted to 5250 Total time spend: 50 minutes including patient assessment, reviewing labs/notes, prescribing meds, consulting with SW/RN and completing this note CODING VISIT-PSYCHIATRY Date of Service: Oct 19, 2024 Billing Provider: ALBERTO EVANS DNP Psych Common Visit Codes: [id number] INP/OBS CARE(Mod) Problem Qualifiers (1) Schizophrenia: Qualified Codes: F20.3 - Undifferentiated schizophrenia ALBERTO EVANS DNP Oct 19, 2024 11:49
[2024-10-19 19:00] VITALS: RESP 18; O2SAT 97
[2024-10-19 20:00] VITALS: BP 142/85; PULSE 94; RESP 18; TEMP 98; O2SAT 97
[2024-10-19] MEDS: quetiapine 100mg tablet PO SCH (20:32)
[2024-10-20 07:30] VITALS: BP 123/82; PULSE 76; RESP 16; TEMP 97.3; O2SAT 98
--- NOTE | 2024-10-20 09:46 | PROGRESS NOTE ---
Progress Note Dictate Providers to CC ~ Antibiotic Ordered?: No Objective Vitals Vital Signs Date Time Temp Pulse Resp B/P (MAP) Pulse Ox O2 Delivery O2 Flow Rate FiO2 10/19/24 20:00 98.0 94 18 142/85 (104) 97 Room Air 10/16/24 19:27 0.0 Lab Results: 10/19/24 0853 10/19/24 0853 Problem\\Assessment\\Plan Problems/Diagnosis: (1) Schizophrenia Psychiatrist's Progress Note Date of Service: Oct 20, 2024 Notes Pt admitted on 5150 GD, per hold, the crisis team were called multiple times by the patient family and Shascom due to patient erratic behavior, was making nonsensical statements. During assessment today, patient noted to be very lethargic, not able to provide any history, on one-one monitoring, per report he had received zyprexa 10 mg IM at earlier today in ER. Obtained collateral information from his sister who endorsed pt was diagnosed with schizophrenia as an adult a couple of years ago, was , has 4 children of which 3 are adults, he had a good life but his a couple of years ago and since then has been dealing with medical and mental issues. was hearing voices and admitted at [facility], did well, started living by himself in a motel, later moved in with his family but it became difficult to take care of him and was send back to [facility], was doing very well but during his anniversary, stopped taking his medication for several weeks and started to decline again. Per sister there is family hx of psychiatric illness, their sister who is currently was Bipolar. Assessment: patient evaluated in the conference room, alert orinted x 3, today he report racing thoughts and audio hallucinations that make it hard for him to fall asleep. Worried about his daughter who is supposed to take a driving test, he is supposed to sign off [employer] forms/paperwork for her, requests to have a day pass from the hospital so that he can take care of it. Explored other options to help his daughter take the driving test, patient to discuss with SW his concerns and see if he can have a letter send to the [employer]. Discussed medication to treat racing thoughts, he is ok to adjunct Geodon 20 mg bid . No behavioral or safety concerns reported by staff. Will continue to assess him daily and adjust treatment as needed to further stabilize patient. Premature discharge will most likely result in readmission. Mental Status Exam Appearance: casual dressed in home clothing Speech: soft. low Eye Contact: good Motor Activity: Normal Affect: congruent Mood: "better" Orientation Impairment: None Memory Impairment: none Attention: normal Hallucinations: "Voices" Suicidality: denies Homicidality: denies Delusions: none Behavior: cooperative Insight: fair Judgment: fair LBS , urine protein =>300, 10/09/24 urine ketones =15, Toxicology negative for all substances of abuse. 10/10/24 MCHC =32.9, Neutrophils =19.9. 10/11/24 BUN =24, B BUN/creatinine ratio= 28.2, Albumin= 3.1. Medication management: Adjunct Geodon 20 mg bid seroquel dose to 300 hs Wellbutrin XL 300 q am Effexor 150 mg daily Hydroxyzine 50 mg q 6 prn anxiety Continue one to one monitoring Hold: converted to 5250 Total time spend: 50 minutes including patient assessment, reviewing labs/notes, prescribing meds, consulting with SW/RN and completing this note CODING VISIT-PSYCHIATRY Date of Service: Oct 20, 2024 Billing Provider: ALBERTO EVANS DNP Psych Common Visit Codes: [id number] INP/OBS CARE(Mod) Problem Qualifiers (1) Schizophrenia: Qualified Codes: F20.3 - Undifferentiated schizophrenia ALBERTO EVANS DNP Oct 20, 2024 09:46
--- NOTE | 2024-10-20 18:59 | PROGRESS NOTE- Residence ---
Progress Note - Resident Providers to CC Resident Creating Document: LOGAN SHINE, RES ~ Antibiotic Timeout Antibiotic Ordered?: No Subjective Patient has been evaluated in mental health. The patient denies any medical complaint. Objective Vital Signs Date Time Temp Pulse Resp B/P (MAP) Pulse Ox O2 Delivery O2 Flow Rate FiO2 10/20/24 07:30 16 98 Room Air 0.0 10/20/24 07:30 97.3 76 123/82 (96) Physical exam: General: Well alert, well oriented, not confused, not agitated, not in acute distress, well cooperated during the physical. HEENT: Conjunctive are pink, sclerae clear, no icterus, pupil is equal in both sides, reactive to light, no ear discharge, no pharyngeal erythema or an edema, presence of xanthelasmas in bilateral upper eyelids. Neck: Supple, no JVD, no lymphadenopathy and thyromegaly. Chest: Equal air entry on both lungs, no additional sounds no rhonchi no wheezing at the moment. Cardiovascular: S1-S2 regular sinus rhythm and, regular rate, no gallops, no rubs, no murmurs Abdomen: No visible peristalsis, Bowel sounds present on auscultation, soft, nontender, no guarding, no rigidity Extremities: No obvious deformities, no pitting edema bilaterally, capillary refill intact, peripheral pulsations are intact on both sides Central Nervous System: No focal neurological deficits, no motor or sensory weakness in all 4 extremities, could move all 4 extremities, 2+ deep tendon reflexes, negative Babinski. Musculoskeletal: No joint swelling, deformities, inflammations, and no scoliosis and back tenderness Skin: Warm and dry. Result Diagram: 10/19/2453 10/19/24 08 Assessment Assessment A 54 years old male admitted at [facility] on a 5150 hold. Plan Plan Schizophrenia Treatment as per Psychiatry. Hypokalemia, resolved Current potassium levels within reference range. Rkt-sslrsjd-cedncyjgk diabetes mellitus Hemoglobin A1c is 5.6. Xanthelasmas Triglycerides 237, cholesterol 192, LDL 170, HDL 45. Atorvastatin 20 mg daily. Disposition: Hospitalist team will continue to monitor the patient. Logan Zuñiga Internal Medicine Resident [facility] Date of Service: Oct 20, 2024 Billing Provider: JULIET RAMON MD Common Visit Codes: [id number] INP/OBS CARE(MOD) LOGAN SHINE, RES Oct 20, 2024 18:59 JULIET RAMON MD Oct 21, 2024 06:57
[2024-10-20 19:00] VITALS: RESP 18; O2SAT 96
[2024-10-20 20:00] VITALS: BP 126/85; PULSE 100; RESP 18; TEMP 98.3; O2SAT 96
[2024-10-20] MEDS: ziprasidone 20mg capsule PO SCH (20:14)
[2024-10-21] MEDS: atorvastatin 20mg tablet PO SCH (07:22)
[2024-10-21 07:30] VITALS: BP 137/83; PULSE 88; RESP 16; TEMP 97.6; O2SAT 98
--- NOTE | 2024-10-21 17:36 | PROGRESS NOTE ---
Progress Note Dictate Providers to CC ~ Antibiotic Ordered?: No Objective Vitals Vital Signs Date Time Temp Pulse Resp B/P (MAP) Pulse Ox O2 Delivery O2 Flow Rate FiO2 10/21/24 07:30 16 98 Room Air 0.0 10/21/24 07:30 97.6 88 137/83 (101) Lab Results: 10/19/24 0853 10/19/24 0853 Problem\Assessment\Plan Problems/Diagnosis: (1) Schizophrenia Psychiatrist's Progress Note Date of Service: Oct 21, 2024 Notes Pt admitted on 5150 GD, per hold, the crisis team were called multiple times by the patient family and Shascom due to patient erratic behavior, was making nonsensical statements. During assessment today, patient noted to be very lethargic, not able to provide any history, on one-one monitoring, per report he had received zyprexa 10 mg IM at earlier today in ER. Obtained collateral information from his sister who endorsed pt was diagnosed with schizophrenia as an adult a couple of years ago, was , has 4 children of which 3 are adults, he had a good life but his a couple of years ago and since then has been dealing with medical and mental issues. was hearing voices and admitted at [facility], did well, started living by himself in a motel, later moved in with his family but it became difficult to take care of him and was send back to [facility], was doing very well but during his anniversary, stopped taking his medication for several weeks and started to decline again. Per sister there is family hx of psychiatric illness, their sister who is currently was Bipolar. Assessment: patient evaluated in the conference room, In good spirits, states he slept all night undisturbed, feels well rested, thoughts are calmer and clear today, No ASE from medications, no voices at all since when he woke up, talked to SW, will get letter to his daughter to take to [facility] for her to get driving permit, denies SI/HI, states he feels good overall. No behavioral or safety concerns reported by staff. Will continue to assess him daily and adjust treatment as needed to further stabilize patient. Premature discharge will most likely result in readmission. Mental Status Exam Appearance: casual dressed in home clothing Speech: soft. low Eye Contact: good Motor Activity: Normal Affect: congruent Mood: euthymic Orientation Impairment: None Memory Impairment: none Attention: normal Hallucinations: denies Suicidality: denies Homicidality: denies Delusions: none Behavior: cooperative Insight: fair Judgment: fair LBS , urine protein =>300, 10/09/24 urine ketones =15, Toxicology negative for all substances of abuse. 10/10/24 MCHC =32.9, Neutrophils =19.9. 10/11/24 BUN =24, B BUN/creatinine ratio= 28.2, Albumin= 3.1. Medication management: Geodon 20 mg bid Seroquel 300 hs Wellbutrin XL 300 q am Effexor 150 mg daily Hydroxyzine 50 mg q 6 prn anxiety Continue one to one monitoring Hold: converted to 8330 Total time spend: 55 minutes including patient assessment, reviewing labs/notes, prescribing meds, consulting with SW/RN and completing this note CODING VISIT-PSYCHIATRY Date of Service: Oct 21, 2024 Billing Provider: ALBERTO EVANS DNP Psych Common Visit Codes: [id number] INP/OBS CARE(Mod) Problem Qualifiers (1) Schizophrenia: Qualified Codes: F20.3 - Undifferentiated schizophrenia ALBERTO EVANS DNP Oct 21, 2024 17:36
[2024-10-21 19:38] VITALS: RESP 16; O2SAT 97
[2024-10-21 20:57] VITALS: BP 136/94; PULSE 85; RESP 16; TEMP 98.5; O2SAT 97
[2024-10-22 07:00] VITALS: BP 123/90; PULSE 72; RESP 14; TEMP 97.4; O2SAT 97
[2024-10-22 07:30] VITALS: RESP 14; O2SAT 97
--- NOTE | 2024-10-22 18:26 | PROGRESS NOTE ---
Progress Note Dictate Providers to CC ~ Antibiotic Ordered?: No Objective Vitals Vital Signs Date Time Temp Pulse Resp B/P (MAP) Pulse Ox O2 Delivery O2 Flow Rate FiO2 10/22/24 07:30 14 97 Room Air 10/22/24 07:00 97.4 72 123/90 (101) 10/21/24 07:30 0.0 Lab Results: 10/19/24 0853 10/19/24 0853 Problem\Assessment\Plan Problems/Diagnosis: (1) Schizophrenia Psychiatrist's Progress Note Date of Service: Oct 22, 2024 Notes Pt admitted on 5150 GD, per hold, the crisis team were called multiple times by the patient family and Shascom due to patient erratic behavior, was making nonsensical statements. During assessment today, patient noted to be very lethargic, not able to provide any history, on one-one monitoring, per report he had received zyprexa 10 mg IM at earlier today in ER. Obtained collateral information from his sister who endorsed pt was diagnosed with schizophrenia as an adult a couple of years ago, was , has 4 children of which 3 are adults, he had a good life but his a couple of years ago and since then has been dealing with medical and mental issues. was hearing voices and admitted at [facility], did well, started living by himself in a motel, later moved in with his family but it became difficult to take care of him and was send back to [facility], was doing very well but during his anniversary, stopped taking his medication for several weeks and started to decline again. Per sister there is family hx of psychiatric illness, their sister who is currently was Bipolar. Assessment: patient evaluated in the conference room, In no acute distress, intially stated that he was doing well but upon further assessment he admitted to still hearing voices but can not make out what they say, states he starts reminiscing about the past and then hears a voice talking to him, his hold is ending tomorrow but would like to stay longer until when he gets stable. He denies SI/HI. No behavioral or safety concerns reported by staff. Will increase geodon dose to 40 mg bid to better control audio hallucinations. Will continue to assess him daily and adjust treatment as needed to further stabilize patient. Premature discharge will most likely result in readmission. Mental Status Exam Appearance: casual dressed in home clothing Speech: Normal rate/tone Eye Contact: fair Motor Activity: Normal Affect: congruent Mood: anxious Orientation Impairment: None Memory Impairment: none Attention: normal Hallucinations: audio Suicidality: denies Homicidality: denies Delusions: none Behavior: cooperative Insight: fair Judgment: fair LBS , urine protein =>300, 10/09/24 urine ketones =15, Toxicology negative for all substances of abuse. 10/10/24 MCHC =32.9, Neutrophils =19.9. 10/11/24 BUN =24, B BUN/creatinine ratio= 28.2, Albumin= 3.1. Medication management: Increase Geodon to 40 mg bid Seroquel 300 hs Wellbutrin XL 300 q am Effexor 150 mg daily Hydroxyzine 50 mg q 6 prn anxiety Continue one to one monitoring Hold: converted to 5250 Total time spend: 55 minutes including patient assessment, reviewing labs/notes, prescribing meds, consulting with SW/RN and completing this note CODING VISIT-PSYCHIATRY Date of Service: Oct 22, 2024 Billing Provider: ALBERTO EVANS DNP Psych Common Visit Codes: [id number] INP/OBS CARE(Mod) Problem Qualifiers (1) Schizophrenia: Qualified Codes: F20.3 - Undifferentiated schizophrenia ALBERTO EVANS DNP Oct 22, 2024 18:25
[2024-10-22 19:00] VITALS: RESP 20; O2SAT 98
[2024-10-22 19:15] VITALS: BP 123/84; PULSE 99; RESP 20; TEMP 98.5; O2SAT 98
--- NOTE | 2024-10-22 19:58 | PROGRESS NOTE- Residence ---
Progress Note - Resident Providers to CC Resident Creating Document: SANDEEPDARNELL CROCKER RES ~ Antibiotic Timeout Antibiotic Ordered?: No Subjective Patient has been evaluated in mental health. The patient denies any medical complaint. Objective Vital Signs Date Time Temp Pulse Resp B/P (MAP) Pulse Ox O2 Delivery O2 Flow Rate FiO2 10/22/24 19:15 98.5 99 20 123/84 (97) 98 Room Air 10/21/24 07:30 0.0 Result Diagram: 10/19/2453 10/19/24852 General: well developed, well nourished. Awake , alert, and oriented x4, resting comfortably in the bed, in no acute distress . HEENT: Atraumatic, normocephalic, EOMI, anicteric sclera B; pink conjunctiva; PERRLA, normal oropharynx, moist oral and nasal mucosa. Tympanic membrane , nose , throat clear. Neck: Trachea midline. Supple, full range of motion, no JVD, bruit , hepatojugular reflex , lymphadenopathy or masses, or other lesions Cardiac: Regular rhythm, regular rate no murmurs, rubs, or gallops. Normal S1 and S2, no S3 noticed. PMI is normal. Respiratory: Equal breath sounds bilaterally, no tachypnea; lungs clear to auscultation bilaterally, no wheezing ,rub or rales, or crackles. Chest wall is symmetric and without deformity. No signs of trauma. Chest wall is nontender. No signs of respiratory distress. Resonance is normal upon percussion bilaterally. Gastrointestinal: Abdomen symmetric, non-distended, soft, non-tender, normal bowel sounds x4 quadrant, normoactive, no hepatosplenomegaly , no masses , no bruit, no flank pain bilaterally. No voluntary guarding, rebound, or rigidity. No tenderness to percussion. No pulsatile masses. Equal femoral pulses. No Gannon's sign or McBurney point tenderness. Back; no CVA tenderness bilaterally, no deformities. Neck and back are without deformity as well. No tenderness noted on palpation of the spinous processes. Spinous processes are midline. Cervical, thoracic, and lumbar paraspinal muscles are not tender and are without spasm. : normal external genitalia, without lesions, swelling, masses or tenderness. Musculoskeletal: Extremities, normal range of motion, non-tender, muscle strength 5/5 x 4. Negative Homans signs bilaterally on lower extremity. Distal pulses full symmetrical, no clubbing, cyanosis , edema. Neurological: Speech is clear, alert, and oriented x 4. No motor or sensory deficit, deep tendon reflexes normal, cerebellar intact. Cranial nerves II-XII intact. Psych: Alert and or appropriate, normal affect. Vascular: Good distal pulses, which are equal x4; capillary refill less than 2 seconds. Skin: Warm, dry, no pallor, no rash or petechiae. Assessment Assessment A 54 years old male admitted at [facility] on a 5150 hold. Plan Plan Schizophrenia Treatment as per Psychiatry. Hypokalemia, resolved Current potassium levels within reference range. [id number]-cxlxlftig diabetes mellitus Hemoglobin A1c is 5.6. Xanthelasmas Triglycerides 237, cholesterol 192, LDL 170, HDL 45. Atorvastatin 20 mg daily. Disposition: Hospitalist team will continue to monitor the patient. Darnell Crocker Internal Medicine Resident [facility] Date of Service: Oct 22, 2024 Billing Provider: KATELYN STEELE MD Common Visit Codes: [id number] INP/OBS CARE(MOD) DARNELL HOPKINS, RES Oct 22, 2024 19:58 KATELYN STEELE MD Nov 02, 2024 17:45
[2024-10-22] MEDS: ziprasidone 20mg capsule PO SCH (20:25)
[2024-10-23 07:00] VITALS: BP 115/80; PULSE 83; RESP 14; TEMP 97.4; O2SAT 94
--- NOTE | 2024-10-23 10:52 | PROGRESS NOTE ---
Progress Note Dictate Providers to CC ~ Central Line/PICC still needed: N\\A Antibiotic Ordered?: No MRSA Education MRSA Education Provided to pt: No Objective Vitals Vital Signs Date Time Temp Pulse Resp B/P (MAP) Pulse Ox O2 Delivery O2 Flow Rate FiO2 10/23/24 07:00 97.4 83 14 115/80 (92) 94 Room Air 10/21/24 07:30 0.0 Lab Results: 10/19/24 0853 10/19/24 0853 Psychiatrist's Progress Note Date of Service: Oct 23, 2024 Notes Pt admitted on 5150 GD, per hold, the crisis team were called multiple times by the patient family and Shascom due to patient erratic behavior, was making nonsensical statements. During assessment today, patient noted to be very lethargic, not able to provide any history, on one-one monitoring, per report he had received zyprexa 10 mg IM at earlier today in ER. Obtained collateral information from his sister who endorsed pt was diagnosed with schizophrenia as an adult a couple of years ago, was , has 4 children of which 3 are adults, he had a good life but his a couple of years ago and since then has been dealing with medical and mental issues. was hearing voices and admitted at [facility], did well, started living by himself in a motel, later moved in with his family but it became difficult to take care of him and was send back to [facility], was doing very well but during his anniversary, stopped taking his medication for several weeks and started to decline again. Per sister there is family hx of psychiatric illness, their sister who is currently was Bipolar. Assessment: patient evaluated in the observation room. Patient presents in no acute distress. The patient endorses "I am good." He denies SI/HI/AVH. "My voices are stable today; I hear my own voices." Per staff report patient is medication compliant. No behavioral or safety concerns reported by staff. Will continue to assess him daily and adjust treatment as needed to further stabilize patient. Premature discharge will most likely result in readmission. Mental Status Exam Appearance: dressed in street clothing Speech: Normal rate/tone Eye Contact: fair Motor Activity: Normal Affect: congruent Mood: calm Orientation Impairment: None Memory Impairment: none Attention: normal Hallucinations: audio Suicidality: denies Homicidality: denies Delusions: none Behavior: cooperative Insight: fair Judgment: fair Results Of any Diagn. Testing REVIEW OF LABS , urine protein =>300, 10/09/24 urine ketones =15, Toxicology negative for all substances of abuse. 10/10/24 MCHC =32.9, Neutrophils =19.9. 10/11/24 BUN =24, B BUN/creatinine ratio= 28.2, Albumin= 3.1. Treatment Geodon to 40 mg bid Seroquel 300 hs Wellbutrin XL 300 q am Effexor 150 mg daily Hydroxyzine 50 mg q 6 prn anxiety Continue one to one monitoring Hold: converted to 5250 Total time spend: 40 minutes including patient assessment, reviewing labs/notes, prescribing meds, consulting with RN and documentation. CODING VISIT-PSYCHIATRY Date of Service: Oct 23, 2024 Billing Provider: JOSELYN DAVISON APRN Psych Common Visit Codes: [id number] INP/OBS CARE(Mod) JOSELYN DAVISON APRN Oct 23, 2024 10:52
[2024-10-23 19:00] VITALS: RESP 20; O2SAT 98
[2024-10-23 19:58] VITALS: BP 130/87; PULSE 90; RESP 20; TEMP 98.8; O2SAT 98
[2024-10-24 07:00] VITALS: RESP 12; O2SAT 97
[2024-10-24 08:00] VITALS: BP 137/83; PULSE 83; RESP 12; TEMP 98.3; O2SAT 97
--- NOTE | 2024-10-24 10:42 | PROGRESS NOTE ---
Progress Note Dictate Providers to CC ~ Central Line/PICC still needed: N\\A Antibiotic Ordered?: No MRSA Education MRSA Education Provided to pt: No Objective Vitals Vital Signs Date Time Temp Pulse Resp B/P (MAP) Pulse Ox O2 Delivery O2 Flow Rate FiO2 10/24/24 08:00 98.3 83 12 137/83 (101) 97 Room Air 10/21/24 07:30 0.0 Psychiatrist's Progress Note Date of Service: Oct 24, 2024 Notes Pt admitted on 5149 GD, per hold, the crisis team were called multiple times by the patient family and Shascom due to patient erratic behavior, was making nonsensical statements. During assessment today, patient noted to be very lethargic, not able to provide any history, on one-one monitoring, per report he had received zyprexa 10 mg IM at earlier today in ER. Obtained collateral information from his sister who endorsed pt was diagnosed with schizophrenia as an adult a couple of years ago, was , has 4 children of which 3 are adults, he had a good life but his a couple of years ago and since then has been dealing with medical and mental issues. was hearing voices and admitted at [facility], did well, started living by himself in a motel, later moved in with his family but it became difficult to take care of him and was send back to [facility], was doing very well but during his anniversary, stopped taking his medication for several weeks and started to decline again. Per sister there is family hx of psychiatric illness, their sister who is currently was Bipolar. Assessment: patient evaluated in the observation room. Patient presents in no acute distress. The patient is actively walking in hallway. The patient endorses "Good." He denies SI/HI/AVH. Patient endorses no worsening mental health symptoms. Per staff report patient is medication compliant. No behavioral or safety concerns reported by staff. Will continue to assess him daily and adjust treatment as needed to further stabilize patient. Premature discharge will most likely result in readmission. Mental Status Exam Appearance: dressed in street clothing Speech: Normal rate/tone Eye Contact: fair Motor Activity: Normal Affect: congruent Mood: calm Orientation Impairment: None Memory Impairment: none Attention: normal Hallucinations: audio Suicidality: denies Homicidality: denies Delusions: none Behavior: cooperative Insight: fair Judgment: fair Results Of any Diagn. Testing REVIEW OF LABS , urine protein =>300, 10/09/24 urine ketones =15, Toxicology negative for all substances of abuse. 10/10/24 MCHC =32.9, Neutrophils =19.9. 10/11/24 BUN =24, B BUN/creatinine ratio= 28.2, Albumin= 3.1. Treatment Geodon to 40 mg bid Seroquel 300 hs Wellbutrin XL 300 q am Effexor 150 mg daily Hydroxyzine 50 mg q 6 prn anxiety Continue one to one monitoring VOLUNTARY Total time spend: 30 minutes including patient assessment, reviewing labs/notes, prescribing meds, consulting with RN and documentation. CODING VISIT-PSYCHIATRY Date of Service: Oct 24, 2024 Billing Provider: JOSELYN DAVISON APRN Psych Common Visit Codes: [id number] INP/OBS CARE(Low) JOSELYN DAVISON APRN Oct 24, 2024 10:42
[2024-10-24 19:00] VITALS: RESP 16; O2SAT 98
[2024-10-24 20:00] VITALS: BP 128/83; PULSE 90; RESP 16; TEMP 98.9; O2SAT 98
--- NOTE | 2024-10-24 21:13 | PROGRESS NOTE ---
Daily Progress Note Providers to CC ~ Antibiotic Timeout Antibiotic Ordered?: No Subjective This is the hospitalist progress note on patients hospitalized at [facility] psychiatric [facility]. The patient is resting comfortably in bed has no acute medical complaints or concerns Objective Vital Signs Date Time Temp Pulse Resp B/P (MAP) Pulse Ox O2 Delivery O2 Flow Rate FiO2 10/24/24 19:00 16 98 Room Air 10/24/24 08:00 98.3 83 137/83 (101) 10/21/24 07:30 0.0 Gen. No acute distress alert and oriented Lungs clear to ascultation bilaterally, no wheezes rales or rhonchi appreciated Heart normal sinus rhythm no murmurs rubs or clicks noted Abdomen soft nontender bowel sounds are normoactive Lower extremities no clubbing cyanosis, nor edema appreciated bilaterally Problem\Assessment\Plan Problems/Diagnosis: (1) Schizophrenia 54 years old male admitted at [facility] ON A 5150 hold. # Schizophrenia: Treat per psych recommendations # hypokalemia-resolved # [id number] diabetes mellitus Hemoglobin A1c is 5.6 Patient has no acute medical issues. The hospitalist service will continue to follow the patient Date of Service: Oct 24, 2024 Billing Provider: TROY FERRARO DO Common Visit Codes: [id number] INP/OBS CARE(LOW) Problem Qualifiers (1) Schizophrenia: Qualified Codes: F20.3 - Undifferentiated schizophrenia TROY FERRARO DO Oct 24, 2024 21:13
[2024-10-25 07:00] VITALS: RESP 16; O2SAT 99
[2024-10-25 08:00] VITALS: BP 124/84; PULSE 70; RESP 16; TEMP 98.1; O2SAT 99
--- NOTE | 2024-10-25 16:53 | PROGRESS NOTE ---
Progress Note Dictate Providers to CC ~ Antibiotic Ordered?: No Objective Vitals Vital Signs Date Time Temp Pulse Resp B/P (MAP) Pulse Ox O2 Delivery O2 Flow Rate FiO2 10/25/24 08:00 98.1 70 16 124/84 (97) 99 Room Air 10/21/24 07:30 0.0 Problem\\Assessment\\Plan Problems/Diagnosis: (1) Schizophrenia Psychiatrist's Progress Note Date of Service: Oct 25, 2024 Notes Pt admitted on 5150 GD, per hold, the crisis team were called multiple times by the patient family and Shascom due to patient erratic behavior, was making nonsensical statements. During assessment today, patient noted to be very lethargic, not able to provide any history, on one-one monitoring, per report he had received zyprexa 10 mg IM at earlier today in ER. Obtained collateral information from his sister who endorsed pt was diagnosed with schizophrenia as an adult a couple of years ago, was , has 4 children of which 3 are adults, he had a good life but his a couple of years ago and since then has been dealing with medical and mental issues. was hearing voices and admitted at [facility], did well, started living by himself in a motel, later moved in with his family but it became difficult to take care of him and was send back to [facility], was doing very well but during his anniversary, stopped taking his medication for several weeks and started to decline again. Per sister there is family hx of psychiatric illness, their sister who is currently was Bipolar. Assessment: patient evaluated in the conference room, report good efficacy with treatment " the voices are better, don't hear them" requests to stay at least one more week here stating that even though he feels better now, he is scared that he will decompensation when he goes home. He denies SI/HI. No behavioral or safety concerns reported by staff. Patient is showing good progress but too soon to discharge. Will continue to assess him daily and adjust treatment as needed to further stabilize patient. Premature discharge will most likely result in readmission. Mental Status Exam Appearance: casual dressed Speech: Normal rate/tone Eye Contact: fair Motor Activity: Normal Affect: congruent Mood: euthymic Orientation Impairment: None Memory Impairment: none Attention: normal Hallucinations: denies Suicidality: denies Homicidality: denies Delusions: none Behavior: cooperative Insight: fair Judgment: fair LBS , urine protein =>300, 10/09/24 urine ketones =15, Toxicology negative for all substances of abuse. 10/10/24 MCHC =32.9, Neutrophils =19.9. 10/11/24 BUN =24, B BUN/creatinine ratio= 28.2, Albumin= 3.1. Medication management: Geodon 40 mg bid Seroquel 300 hs Wellbutrin XL 300 q am Effexor 150 mg daily Hydroxyzine 50 mg q 6 prn anxiety Continue one to one monitoring Hold: Vol Total time spend: 50 minutes including patient assessment, reviewing labs/notes, prescribing meds, consulting with SW/RN and completing this note CODING VISIT-PSYCHIATRY Date of Service: Oct 25, 2024 Billing Provider: ALBERTO EVANS DNP Psych Common Visit Codes: [id number] INP/OBS CARE(Mod) Problem Qualifiers (1) Schizophrenia: Qualified Codes: F20.3 - Undifferentiated schizophrenia ALBERTO EVANS DNP Oct 25, 2024 16:53
[2024-10-25 19:00] VITALS: RESP 16; O2SAT 96
[2024-10-25 20:00] VITALS: BP 134/88; PULSE 91; RESP 16; TEMP 98.4; O2SAT 96
[2024-10-26 07:00] VITALS: BP_SYST 118; BP_SYST 142; BP_DIAS 81; BP_DIAS 99; PULSE 88; RESP 16; TEMP 97.7; O2SAT 98
[2024-10-26 08:05] VITALS: RESP 16; O2SAT 98
--- NOTE | 2024-10-26 15:12 | PROGRESS NOTE ---
Progress Note Dictate Providers to CC ~ Antibiotic Ordered?: No Objective Vitals Vital Signs Date Time Temp Pulse Resp B/P (MAP) Pulse Ox O2 Delivery O2 Flow Rate FiO2 10/26/24 08:05 16 98 Room Air 10/26/24 07:00 97.7 88 142/99 (113) Problem\Assessment\Plan Problems/Diagnosis: (1) Schizophrenia Psychiatrist's Progress Note Date of Service: Oct 26, 2024 Notes Pt admitted on 5150 GD, per hold, the crisis team were called multiple times by the patient family and Shascom due to patient erratic behavior, was making nonsensical statements. During assessment today, patient noted to be very lethargic, not able to provide any history, on one-one monitoring, per report he had received zyprexa 10 mg IM at earlier today in ER. Obtained collateral information from his sister who endorsed pt was diagnosed with schizophrenia as an adult a couple of years ago, was , has 4 children of which 3 are adults, he had a good life but his a couple of years ago and since then has been dealing with medical and mental issues. was hearing voices and admitted at [facility], did well, started living by himself in a motel, later moved in with his family but it became difficult to take care of him and was send back to [facility], was doing very well but during his anniversary, stopped taking his medication for several weeks and started to decline again. Per sister there is family hx of psychiatric illness, their sister who is currently was Bipolar. Assessment: patient evaluated in the conference room, In no acute distress, states he feels overly anxious when he gets up in the voices, hears voices then, they are better but are still present and seems to calm down once he gets his medication. He denies SI/HI. Discussed medication, pt is open to adding Seroquel 25 mg q am. No other concerns reported. Will continue to assess him daily and adjust treatment as needed to further stabilize patient. Premature discharge will most likely result in readmission. Mental Status Exam Appearance: casual dressed Speech: Normal rate/tone Eye Contact: fair Motor Activity: Normal Affect: congruent Mood: anxious Orientation Impairment: None Memory Impairment: none Attention: normal Hallucinations: audio Suicidality: denies Homicidality: denies Delusions: none Behavior: cooperative Insight: fair Judgment: fair LBS 5/ 31/25, urine protein =>300, 10/09/24 urine ketones =15, Toxicology negative for all substances of abuse. 10/10/24 MCHC =32.9, Neutrophils =19.9. 10/11/24 BUN =24, B BUN/creatinine ratio= 28.2, Albumin= 3.1. Medication management: Adjunct seroquel 25 mg q hs Geodon 40 mg bid Seroquel 300 hs Wellbutrin XL 300 q am Effexor 150 mg daily Hydroxyzine 50 mg q 6 prn anxiety Continue one to one monitoring Hold: Vol Total time spend: 55 minutes including patient assessment, reviewing labs/notes, prescribing meds, consulting with SW/RN and completing this note CODING VISIT-PSYCHIATRY Date of Service: Oct 26, 2024 Billing Provider: ALBERTO EVANS DNP Psych Common Visit Codes: [id number] INP/OBS CARE(Mod) Problem Qualifiers (1) Schizophrenia: Qualified Codes: F20.3 - Undifferentiated schizophrenia ALBERTO EVANS DNP Oct 26, 2024 15:12
--- NOTE | 2024-10-26 16:45 | PROGRESS NOTE ---
Daily Progress Note Providers to CC ~ Antibiotic Timeout Antibiotic Ordered?: No Subjective Patient is seen in his room in presence of nursing staff he looked comfortable denied any concerns. Passed stools today Objective Vital Signs Date Time Temp Pulse Resp B/P (MAP) Pulse Ox O2 Delivery O2 Flow Rate FiO2 10/26/24 08:05 16 98 Room Air 10/26/24 07:00 97.7 88 142/99 (113) General-patient not in any acute distress, alert awake , obese, age- appropriate/looks comfortable HEENT-atraumatic normocephalic, neck supple without elevated JVD, no thyromegaly or carotid bruit. No lymphadenopathy bilaterally. Eyes-no icterus or pallor seen in eyes Chest-clear to auscultation bilaterally, breathing nonlabored no tachypnea, no wheezing, no crepitation, no crackles. Heart-S1-S2 normal, regular heart rate no murmur Abdomen bowel sounds positive on auscultation, soft nondistended nontender no guarding, no rigidity Skin no active skin rash Neurology-grossly intact, nonfocal alert awake oriented Extremity- no pedal edema able to move all 4 extremities/ambulate Psychiatry - patient is not confused or agitated cooperated during physical examination Problem\Assessment\Plan Problems/Diagnosis: (1) Schizophrenia 54 years old male admitted at [facility] ON A 5150 hold. # Schizophrenia: Treat per psych recommendations # hypokalemia-resolved # [id number] diabetes mellitus Hemoglobin A1c is 5.6 Patient has no acute medical issues. The hospitalist service will continue to follow the patient Date of Service: Oct 26, 2024 Billing Provider: RACHID TYSON MD Common Visit Codes: [id number] INP/OBS CARE(LOW) Problem Qualifiers (1) Schizophrenia: Qualified Codes: F20.3 - Undifferentiated schizophrenia RACHID TYSON MD Oct 26, 2024 16:45
[2024-10-26 19:00] VITALS: RESP 20
[2024-10-26 20:00] VITALS: BP 142/99; PULSE 104; RESP 20; TEMP 96.6; O2SAT 94
[2024-10-27 07:00] VITALS: RESP 16; O2SAT 98
[2024-10-27] MEDS: QUEtiapine 25mg tablet PO SCH (07:04)
[2024-10-27 08:00] VITALS: BP 126/88; PULSE 85; RESP 16; TEMP 97.8; O2SAT 96
[2024-10-27 19:00] VITALS: RESP 14; O2SAT 97
--- NOTE | 2024-10-27 20:22 | PROGRESS NOTE ---
Progress Note Dictate Providers to CC ~ Antibiotic Ordered?: No Objective Vitals Vital Signs Date Time Temp Pulse Resp B/P (MAP) Pulse Ox O2 Delivery O2 Flow Rate FiO2 10/27/24 08:00 97.8 85 16 126/88 (101) 96 Room Air 10/26/24 19:00 0.0 Problem\\Assessment\\Plan Problems/Diagnosis: (1) Schizophrenia Psychiatrist's Progress Note Date of Service: Oct 27, 2024 Notes Pt admitted on 5150 GD, per hold, the crisis team were called multiple times by the patient family and Shascom due to patient erratic behavior, was making nonsensical statements. During assessment today, patient noted to be very lethargic, not able to provide any history, on one-one monitoring, per report he had received zyprexa 10 mg IM at earlier today in ER. Obtained collateral information from his sister who endorsed pt was diagnosed with schizophrenia as an adult a couple of years ago, was , has 4 children of which 3 are adults, he had a good life but his a couple of years ago and since then has been dealing with medical and mental issues. was hearing voices and admitted at [facility], did well, started living by himself in a motel, later moved in with his family but it became difficult to take care of him and was send back to [facility], was doing very well but during his anniversary, stopped taking his medication for several weeks and started to decline again. Per sister there is family hx of psychiatric illness, their sister who is currently was Bipolar. Assessment: patient evaluated in the conference room, states he feels calm, no voices or feelings of anxiety when he woke up today. Inquired about getting permanent disability, does not think he is able to return to normal work days. ASdvised that I may be able to give him 6 weeks of disability while he is at the [facility] but he will have to follow up with his primary mental health to extend the days. No other concerns reported. patient is showing some good progress, no voices today. Will continue to assess him daily and adjust treatment as needed to further stabilize patient. Premature discharge will most likely result in readmission. Mental Status Exam Appearance: casual dressed Speech: Normal rate/tone Eye Contact: fair Motor Activity: Normal Affect: congruent Mood: "ok" Orientation Impairment: None Memory Impairment: none Attention: normal Hallucinations: audio Suicidality: denies Homicidality: denies Delusions: none Behavior: cooperative Insight: fair Judgment: fair LBS , urine protein =>300, 10/09/24 urine ketones =15, Toxicology negative for all substances of abuse. 10/10/24 MCHC =32.9, Neutrophils =19.9. 10/11/24 BUN =24, B BUN/creatinine ratio= 28.2, Albumin= 3.1. Medication management: Seroquel 25 mg q am Geodon 40 mg bid Seroquel 300 hs Wellbutrin XL 300 q am Effexor 150 mg daily Hydroxyzine 50 mg q 6 prn anxiety Continue one to one monitoring Hold: Vol Total time spend: 55 minutes including patient assessment, reviewing labs/notes, prescribing meds, consulting with SW/RN and completing this note CODING VISIT-PSYCHIATRY Date of Service: Oct 27, 2024 Billing Provider: ALBERTO EVANS DNP Psych Common Visit Codes: [id number] INP/OBS CARE(Mod) Problem Qualifiers (1) Schizophrenia: Qualified Codes: F20.3 - Undifferentiated schizophrenia ALBERTO EVANS DNP Oct 27, 2024 20:22
[2024-10-27 20:39] VITALS: BP 126/86; PULSE 95; RESP 14; TEMP 98.8; O2SAT 97
[2024-10-28 07:30] VITALS: BP 135/81; PULSE 62; RESP 16; TEMP 97; O2SAT 100; O2SAT 97
--- NOTE | 2024-10-28 10:49 | PROGRESS NOTE ---
Daily Progress Note Providers to CC ~ Antibiotic Timeout Antibiotic Ordered?: No Subjective Chief complaint none Review of systems negative for all 10 systems reviewed Objective Vital Signs Date Time Temp Pulse Resp B/P (MAP) Pulse Ox O2 Delivery O2 Flow Rate FiO2 10/28/24 07:30 97.0 62 16 135/81 (99) 100 Room Air 0.0 HEENT-normocephalic nontraumatic head PERRLA. EOMI. CVS first and second heart sounds are regular rate rhythm no murmurs gallops or rubs Respiratory system clear to auscultation bilaterally, breathing nonlabored no tachypnea, no wheezing, no crepitation, no crackles. Abdomen bowel sounds positive on auscultation, morbidly obese soft nondistended nontender no guarding, no rigidity Extremities no clubbing cyanosis or edema Problem\Assessment\Plan Problems/Diagnosis: (1) Schizophrenia 54 years old male admitted at [facility] ON A 5150 hold. # Schizophrenia: Treat per psych recommendations # hypokalemia-resolved # leukocytosis from 10/09 resolved on 11/18 those of the last labs # qef-vyjtfti-uajdekwja diabetes mellitus Hemoglobin A1c is 5.6 # morbidly obese patient would benefit from weight loss Patient has no acute medical issues. The hospitalist service will continue to follow the patient Date of Service: Oct 28, 2024 Billing Provider: KOKI KAHN MD Common Visit Codes: [id number] INP/OBS CARE(LOW) Problem Qualifiers (1) Schizophrenia: Qualified Codes: F20.3 - Undifferentiated schizophrenia KOKI KAHN MD Oct 28, 2024 10:49
--- NOTE | 2024-10-28 11:32 | PROGRESS NOTE ---
Progress Note Dictate Providers to CC ~ Antibiotic Ordered?: No Objective Vitals Vital Signs Date Time Temp Pulse Resp B/P (MAP) Pulse Ox O2 Delivery O2 Flow Rate FiO2 10/28/24 07:30 97.0 62 16 135/81 (99) 100 Room Air 0.0 Problem\Assessment\Plan Problems/Diagnosis: (1) Schizophrenia Psychiatrist's Progress Note Date of Service: Oct 28, 2024 Notes Pt admitted on 5150 GD, per hold, the crisis team were called multiple times by the patient family and Shascom due to patient erratic behavior, was making nonsensical statements. During assessment today, patient noted to be very lethargic, not able to provide any history, on one-one monitoring, per report he had received zyprexa 10 mg IM at earlier today in ER. Obtained collateral information from his sister who endorsed pt was diagnosed with schizophrenia as an adult a couple of years ago, was , has 4 children of which 3 are adults, he had a good life but his a couple of years ago and since then has been dealing with medical and mental issues. was hearing voices and admitted at [facility], did well, started living by himself in a motel, later moved in with his family but it became difficult to take care of him and was send back to [facility], was doing very well but during his anniversary, stopped taking his medication for several weeks and started to decline again. Per sister there is family hx of psychiatric illness, their sister who is currently was Bipolar. 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 Used to take Prazosin in the past but does not remember the dose. Would like to resume taking the medication. No other concerns reported. No behvaioral or safety concerns reported by staff. Will continue to assess him daily and adjust treatment as needed to further stabilize patient. Premature discharge will most likely result in readmission. Mental Status Exam Appearance: casual dressed Speech: Normal rate/tone Eye Contact: fair Motor Activity: Normal Affect: congruent Mood: euthymic Orientation Impairment: None Memory Impairment: none Attention: normal Hallucinations: denies Suicidality: denies Homicidality: denies Delusions: none Behavior: cooperative Insight: fair Judgment: fair LBS , urine protein =>300, 10/09/24 urine ketones =15, Toxicology negative for all substances of abuse. 10/10/24 MCHC =32.9, Neutrophils =19.9. 10/11/24 BUN =24, B BUN/creatinine ratio= 28.2, Albumin= 3.1. Medication management: Start prazosin 1 mg q hs Seroquel 25 mg q am Geodon 40 mg bid Seroquel 300 hs Wellbutrin XL 300 q am Effexor 150 mg daily Hydroxyzine 50 mg q 6 prn anxiety Continue one to one monitoring Hold: Vol Total time spend: 55 minutes including patient assessment, reviewing labs/notes, prescribing meds, consulting with SW/RN and completing this note CODING VISIT-PSYCHIATRY Date of Service: Oct 28, 2024 Billing Provider: ALBERTO EVANS DNP Psych Common Visit Codes: [id number] INP/OBS CARE(Mod) Problem Qualifiers (1) Schizophrenia: Qualified Codes: F20.3 - Undifferentiated schizophrenia ALBERTO EVANS DNP Oct 28, 2024 11:32
[2024-10-28 19:33] VITALS: RESP 18; O2SAT 95
[2024-10-28] MEDS: prazosin 1mg capsule PO SCH (20:06)
[2024-10-28 20:42] VITALS: BP 106/74; PULSE 89; RESP 18; TEMP 98.9; O2SAT 95
[2024-10-29 07:30] VITALS: BP 132/92; PULSE 84; RESP 12; TEMP 97.9; O2SAT 97
--- NOTE | 2024-10-29 14:36 | PROGRESS NOTE ---
Progress Note Dictate Providers to CC ~ Antibiotic Ordered?: No Objective Vitals Vital Signs Date Time Temp Pulse Resp B/P (MAP) Pulse Ox O2 Delivery O2 Flow Rate FiO2 10/29/24 07:30 97.9 84 12 132/92 (105) 97 Room Air 0.0 Problem\Assessment\Plan Problems/Diagnosis: (1) Schizophrenia Psychiatrist's Progress Note Date of Service: Oct 29, 2024 Notes Pt admitted on 5150 GD, per hold, the crisis team were called multiple times by the patient family and Shascom due to patient erratic behavior, was making nonsensical statements. During assessment today, patient noted to be very lethargic, not able to provide any history, on one-one monitoring, per report he had received zyprexa 10 mg IM at earlier today in ER. Obtained collateral information from his sister who endorsed pt was diagnosed with schizophrenia as an adult a couple of years ago, was , has 4 children of which 3 are adults, he had a good life but his a couple of years ago and since then has been dealing with medical and mental issues. was hearing voices and admitted at [facility], did well, started living by himself in a motel, later moved in with his family but it became difficult to take care of him and was send back to [facility], was doing very well but during his anniversary, stopped taking his medication for several weeks and started to decline again. Per sister there is family hx of psychiatric illness, their sister who is currently was Bipolar. Assessment: patient evaluated in the conference room, did not sleep well last night due to voices, was doing well the past few days, the voices had quieten but last night seems to have come back, discussed medication, will increase Seroquel hs dose to 400 mg and prazosin frequency to BID. No behavioral or safety concerns reported by staff. Will continue to assess him daily and adjust treatment as needed to further stabilize patient. Premature discharge will most likely result in readmission. Mental Status Exam Appearance: casual dressed Speech: Normal rate/tone Eye Contact: fair Motor Activity: Normal Affect: congruent Mood: euthymic Orientation Impairment: None Memory Impairment: none Attention: normal Hallucinations: denies Suicidality: denies Homicidality: denies Delusions: none Behavior: cooperative Insight: fair Judgment: fair LBS , urine protein =>300, 10/09/24 urine ketones =15, Toxicology negative for all substances of abuse. 10/10/24 MCHC =32.9, Neutrophils =19.9. 10/11/24 BUN =24, B BUN/creatinine ratio= 28.2, Albumin= 3.1. Medication management: Prazosin 1 mg bid Seroquel 25 mg q am Geodon 40 mg bid Increase Seroquel to 400 hs Wellbutrin XL 300 q am Effexor 150 mg daily Hydroxyzine 50 mg q 6 prn anxiety Continue one to one monitoring Hold: Vol Total time spend: 55 minutes including patient assessment, reviewing labs/notes, prescribing meds, consulting with SW/RN and completing this note CODING VISIT-PSYCHIATRY Date of Service: Oct 29, 2024 Billing Provider: ALBERTO EVANS DNP Psych Common Visit Codes: [id number] INP/OBS CARE(Mod) Problem Qualifiers (1) Schizophrenia: Qualified Codes: F20.3 - Undifferentiated schizophrenia ALBERTO EVANS DNP Oct 29, 2024 14:36
[2024-10-29 19:00] VITALS: RESP 15; O2SAT 97
[2024-10-29 20:00] VITALS: BP 128/87; PULSE 102; RESP 15; TEMP 99; O2SAT 97
[2024-10-29] MEDS: quetiapine 100mg tablet PO SCH (20:59)
[2024-10-29 21:00] VITALS: PULSE 88
[2024-10-29] MEDS: prazosin 1mg capsule PO SCH (21:00)
[2024-10-30 07:30] VITALS: BP 126/80; PULSE 81; RESP 12; TEMP 97.5; O2SAT 96
--- NOTE | 2024-10-30 09:59 | PROGRESS NOTE ---
Progress Note Dictate Providers to CC ~ Central Line/PICC still needed: N\A Antibiotic Ordered?: No Objective Vitals Vital Signs Date Time Temp Pulse Resp B/P (MAP) Pulse Ox O2 Delivery O2 Flow Rate FiO2 10/29/24 21:00 88 10/29/24 20:00 99.0 15 128/87 (101) 97 Room Air 10/29/24 19:00 0.0 Problem\Assessment\Plan Problems/Diagnosis: (1) Major depressive disorder, recurrent Psychiatrist's Progress Note Date of Service: Oct 30, 2024 Notes Masetr Huffman is a 54yo male who was admitted on 5150 GD, per hold, the crisis team were called multiple times by the patient family and Shascom due to patient erratic behavior, was making nonsensical statements. During assessment today, patient noted to be very lethargic, not able to provide any history, on one-one monitoring, per report he had received zyprexa 10 mg IM at earlier today in ER. Obtained collateral information from his sister who endorsed pt was diagnosed with schizophrenia as an adult a couple of years ago, was , has 4 children of which 3 are adults, he had a good life but his a couple of years ago and since then has been dealing with medical and mental issues. was hearing voices and admitted at [facility], did well, started living by himself in a motel, later moved in with his family but it became difficult to take care of him and was send back to [facility], was doing very well but during his anniversary, stopped taking his medication for several weeks and started to decline again. Per sister there is family hx of psychiatric illness, their sister who is currently was Bipolar. Pt average height and obese. He has short mireles reddish colored hair. full facial hair mireles. glasses. Street clothes. Nails colored and ears pierced. Mind racing here and there. Hearing voices of people talking that I know and they talk with my voice... Sleeping better than he was. Not so much paranoia. 'I just do not like the racing.' Feels it is anxiety. In the beginning a lot of depression but not too much now. 'normal as anybody.' Angry at the voices in my head. 'get the fuck out of my head.' Responding to the voices. 'jibberish and makes no sense.' Telling him he is 'not good or worth nothing' Lost several years ago. 08/2021. Would have been 38y . She was only 58. 'to me it feels like yesterday.' Hard time August, September, October. A lot of loss during these months. Starting to feel better. 'I will not this time stop taking my medication.' 'I feel it is helping. And I can not live without them no more.' Last BM today, Normal. Mental Status Eye contact: Fair; Behavior: Cooperative. Less Restless. Speech: Regular. a little hyperverbal. Mood: 'better'. Affect: Constricted. Thought process: Less Internally preoccupied. Denies Paranoid thinking or anyone is out to harm him. Thought Content: immediate needs. Cognition: A&O X4; Insight: Improving- Fair; Judgment: Improving-Fair; SI Denies/HI Denies. AH ? possibly his own internal voice? vs AH. /VH Denies Results Of any Diagn. Testing , urine protein =>300, 10/09/24 urine ketones =15, Toxicology negative for all substances of abuse. 10/10/24 MCHC =32.9, Neutrophils =19.9. 10/11/24 BUN =24, B BUN/creatinine ratio= 28.2, Albumin= 3.1. Treatment He is still struggling a little with racing thoughts and sleep. Prazosin 1mg hs. Seroquel 25mg daily, Seroquel 400 mg q hs Geodon 40mg BID Wellbutrin XL 300mg daily Effexor 75mg daily Trazodone 50mg hs prn insomnia Hydroxyzine 50 mg q 6 prn anxiety MEDICAL: Supportive Monitoring by Staff, Milieu, Group, and Individual counseling as needed -- According to the [place] Suicide Assessment the above named patient is on Q15 min checks VOLGD Patient is unable to formulate a plan to safely meet their basic needs of food, clothing, and assisted due to the severity of their mental illness. Discharge: Referral to [facility] REVIEW OF Clinical notes [X ] RN notes [X] PCT documentation [X] SW notes [X] Labs [ X] Medications [X] Care trends/care activity [X] Vitals [X] DISCUSSION WITH flap maker [X] CODING VISIT-PSYCHIATRY Date of Service: Oct 30, 2024 Billing Provider: BRIAN GOINS Psych Common Visit Codes: [id number] INP/OBS CARE(High) Problem Qualifiers (1) Major depressive disorder, recurrent: BRIAN GOINS Oct 30, 2024 09:59
--- NOTE | 2024-10-30 14:08 | PROGRESS NOTE ---
Daily Progress Note Providers to CC ~ Antibiotic Timeout Antibiotic Ordered?: No Subjective Patient has no complaints Objective Vital Signs Date Time Temp Pulse Resp B/P (MAP) Pulse Ox O2 Delivery O2 Flow Rate FiO2 10/30/24 07:30 12 96 Room Air 0.0 10/30/24 07:30 97.5 81 126/80 (95) HEENT normal oral mucosa no JVD Lungs with normal bilateral entry Normal rate and rhythm S1-S2 Abdomen is soft nontender Extremities no edema Awake and alert Problem\Assessment\Plan Problems/Diagnosis: (1) Schizophrenia 54 years old male admitted at [facility] # Schizophrenia: Treat per psych recommendations # hypokalemia-resolved Patient has no acute medical issues. Date of Service: Oct 30, 2024 Billing Provider: JULIET RAMON MD Common Visit Codes: [id number] INP/OBS CARE(MOD) Problem Qualifiers (1) Schizophrenia: Qualified Codes: F20.3 - Undifferentiated schizophrenia JULIET RAMON MD Oct 30, 2024 14:08
[2024-10-30 19:37] VITALS: BP 141/89; PULSE 103; RESP 16; TEMP 98.5; O2SAT 95
[2024-10-30 20:00] VITALS: RESP 16; O2SAT 95
[2024-10-31 07:00] VITALS: RESP 16; O2SAT 95
[2024-10-31 08:00] VITALS: BP 131/96; PULSE 86; RESP 16; TEMP 97.5; O2SAT 95
--- NOTE | 2024-10-31 16:43 | PROGRESS NOTE ---
Progress Note Dictate Providers to CC ~ Central Line/PICC still needed: N\A Antibiotic Ordered?: No Objective Vitals Vital Signs Date Time Temp Pulse Resp B/P (MAP) Pulse Ox O2 Delivery O2 Flow Rate FiO2 10/31/24 08:00 97.5 86 16 131/96 (108) 95 Room Air 10/31/24 07:00 0.0 Problem\Assessment\Plan Problems/Diagnosis: (1) Major depressive disorder, recurrent Psychiatrist's Progress Note Date of Service: Oct 31, 2024 Notes Master Huffman is a 54yo male who was admitted on 5150 GD, per hold, the crisis team were called multiple times by the patient family and Shascom due to patient erratic behavior, was making nonsensical statements. During assessment today, patient noted to be very lethargic, not able to provide any history, on one-one monitoring, per report he had received zyprexa 10 mg IM at earlier today in ER. Obtained collateral information from his sister who endorsed pt was diagnosed with schizophrenia as an adult a couple of years ago, was , has 4 children of which 3 are adults, he had a good life but his a couple of years ago and since then has been dealing with medical and mental issues. was hearing voices and admitted at [facility], did well, started living by himself in a motel, later moved in with his family but it became difficult to take care of him and was send back to [facility], was doing very well but during his anniversary, stopped taking his medication for several weeks and started to decline again. Per sister there is family hx of psychiatric illness, their sister who is currently was Bipolar. Pt average height and obese. He has short mireles reddish colored hair. full facial hair mireles. glasses. Street clothes. Nails colored and ears pierced. He says that the past two nights he took Prazosin only 1mg but not helping enough. A lot of bad dreams that make no sense. Not a lot of depression today. Enjoying coloring. It is kind of like a vacation. No SI or plans. Were feeling like he didn't care if he ever woke up again. But doing better. Racing not so much today. No AH/VH. No Paranoia. Sleep is good other than the bad dreams. Last BM today. Mental Status Eye contact: Fair; Behavior: Cooperative. Less Restless. Speech: Regular. a little hyperverbal. Mood: 'better'. Affect: Constricted. Thought process: Less Internally preoccupied. Denies Paranoid thinking or anyone is out to harm him. Thought Content: immediate needs. Cognition: A&O X4; Insight: Improving- Fair; Judgment: Improving-Fair; SI Denies/HI Denies. AH ? possibly his own internal voice? vs AH. /VH Denies Results Of any Diagn. Testing , urine protein =>300, 10/09/24 urine ketones =15, Toxicology negative for all substances of abuse. 10/10/24 MCHC =32.9, Neutrophils =19.9. 10/11/24 BUN =24, B BUN/creatinine ratio= 28.2, Albumin= 3.1. Treatment Slight increase Prazosin to 2mg hs. d/c the am dose causing fatigue. Prazosin 2mg hs. Seroquel 25mg daily, Seroquel 400 mg q hs Geodon 40mg BID Wellbutrin XL 300mg daily Effexor 75mg daily Trazodone 50mg hs prn insomnia Hydroxyzine 50 mg q 6 prn anxiety MEDICAL: Supportive Monitoring by Staff, Milieu, Group, and Individual counseling as needed -- According to the [place] Suicide Assessment the above named patient is on Q15 min checks VOLGD Patient is unable to formulate a plan to safely meet their basic needs of food, clothing, and correction due to the severity of their mental illness. Discharge: Referral to [facility] REVIEW OF Clinical notes [X ] RN notes [X] PCT documentation [X] notes [X] Labs [ X] Medications [X] Care trends/care activity [X] Vitals [X] DISCUSSION WITH grades 9 12 tutor [X] CODING VISIT-PSYCHIATRY Date of Service: Oct 31, 2024 Billing Provider: BRIAN GOINS Psych Common Visit Codes: [id number] INP/OBS CARE(Mod) Problem Qualifiers (1) Major depressive disorder, recurrent: BRIAN GOINS Oct 31, 2024 16:42
[2024-10-31 19:00] VITALS: RESP 18; O2SAT 94
[2024-10-31 20:00] VITALS: BP 131/91; PULSE 96; RESP 18; TEMP 97; O2SAT 94
[2024-10-31] MEDS: prazosin 1mg capsule PO SCH (20:38)
[2024-11-01 07:00] VITALS: RESP 16; O2SAT 97
[2024-11-01 08:05] VITALS: BP 125/77; PULSE 89; RESP 16; TEMP 98.1; O2SAT 97
--- NOTE | 2024-11-01 17:41 | PROGRESS NOTE ---
Progress Note Dictate Providers to CC ~ Antibiotic Ordered?: No Objective Vitals Vital Signs Date Time Temp Pulse Resp B/P (MAP) Pulse Ox O2 Delivery O2 Flow Rate FiO2 11/01/24 08:05 98.1 89 16 125/77 (93) 97 11/01/24 07:00 Room Air 10/31/24 07:00 0.0 Problem\\Assessment\\Plan Problems/Diagnosis: (1) Schizophrenia Psychiatrist's Progress Note Date of Service: Nov 01, 2024 Notes Pt admitted on 5150 GD, per hold, the crisis team were called multiple times by the patient family and Shascom due to patient erratic behavior, was making nonsensical statements. During assessment today, patient noted to be very lethargic, not able to provide any history, on one-one monitoring, per report he had received zyprexa 10 mg IM at earlier today in ER. Obtained collateral information from his sister who endorsed pt was diagnosed with schizophrenia as an adult a couple of years ago, was , has 4 children of which 3 are adults, he had a good life but his a couple of years ago and since then has been dealing with medical and mental issues. was hearing voices and admitted at [facility], did well, started living by himself in a motel, later moved in with his family but it became difficult to take care of him and was send back to [facility], was doing very well but during his anniversary, stopped taking his medication for several weeks and started to decline again. Per sister there is family hx of psychiatric illness, their sister who is currently was Bipolar. Assessment: patient evaluated in the conference room, talked about his daughter who attends [facility] [employer] hoahaoism. Scared about his discharge, what if the symptoms come back? st ating he only have one more chance to mess and he will lose his place of living " 3 strikes and you are out" slept well last night, had only one dream but it made sense to him, he was coaching his friend, woke up feeling good. Discussed medication adherence/taking meds at scheduled times daily to continue stability of symptoms and prevent relapse. No other concerns reported. Will continue to assess him daily and adjust treatment as needed to further stabilize patient. Premature discharge will most likely result in readmission. Mental Status Exam Appearance: casual dressed Speech: Normal rate/tone Eye Contact: fair Motor Activity: Normal Affect: congruent Mood: anxious Orientation Impairment: None Memory Impairment: none Attention: normal Hallucinations: denies Suicidality: denies Homicidality: denies Delusions: none Behavior: cooperative Insight: fair Judgment: fair LBS , urine protein =>300, 10/09/24 urine ketones =15, Toxicology negative for all substances of abuse. 10/10/24 MCHC =32.9, Neutrophils =19.9. 10/11/24 BUN =24, B BUN/creatinine ratio= 28.2, Albumin= 3.1. Medication management: Prazosin 1 mg bid Seroquel 25 mg q am Geodon 40 mg bid Seroquel to 400 hs Wellbutrin XL 300 q am Effexor 150 mg daily Hydroxyzine 50 mg q 6 prn anxiety Continue one to one monitoring Hold: Vol Total time spend: 55 minutes including patient assessment, reviewing labs/notes, meds, consulting with SW/RN and completing this note CODING VISIT-PSYCHIATRY Date of Service: Nov 01, 2024 Billing Provider: ALBERTO EVANS DNP Psych Common Visit Codes: [id number] INP/OBS CARE(Mod) Problem Qualifiers (1) Schizophrenia: Qualified Codes: F20.3 - Undifferentiated schizophrenia ALBERTO EVANS DNP Nov 01, 2024 17:41
--- NOTE | 2024-11-01 18:29 | PROGRESS NOTE- Residence ---
Progress Note - Resident Providers to CC Resident Creating Document: MARCIO SIMMONS RES ~ Antibiotic Timeout Antibiotic Ordered?: No Subjective Patient has been evaluated in mental health. Denies any medical concerns or complaints at this time. He is sitting in the common area and coloring with crayons. Talks about his who had in 2021 and memories with her. Objective Vital Signs Date Time Temp Pulse Resp B/P (MAP) Pulse Ox O2 Delivery O2 Flow Rate FiO2 11/01/24 08:05 98.1 89 16 125/77 (93) 97 11/01/24 07:00 Room Air 10/31/24 07:00 0.0 General: Awake and Alert, no acute distress. HEENT: Conjunctiva pink, Sclera clear, Mucus Membranes moist. Neck: Supple without masses and tenderness. Resp: Unlabored. Equal breath sounds bilaterally. Heart: Regular rhythm, normal S1 and S2, no rub, murmur or gallop. Abdomen: Soft and non tender no organomegaly. Normal bowel sounds x4 quadrant normoactive. No guarding or rigidity. Extremities: Normal ROM, no swelling, nontender. No cyanosis,clubbing or edema. SPORTS THERAPIST: No gross motor or sensory abnormalities. Skin: Warm and Dry. Assessment Assessment A 54 years old male admitted at [facility] on a 5150 hold. Plan Plan Schizophrenia Treatment as per Psychiatry. Xanthelasmas Triglycerides 237, cholesterol 192, LDL 170, HDL 45. Atorvastatin 20 mg daily. Management per psychiatrist, hospitalist team will continue to follow. Date of Service: Nov 01, 2024 Billing Provider: JULIET RAMON MD Common Visit Codes: [id number] INP/OBS CARE(MOD) MARCIO SIMMONS RES Nov 01, 2024 18:29 JULIET RAMON MD Nov 03, 2024 07:10
[2024-11-01 19:00] VITALS: RESP 18; O2SAT 95
[2024-11-01 20:00] VITALS: BP 158/84; PULSE 99; RESP 18; TEMP 98.4; O2SAT 94
[2024-11-02 07:00] VITALS: RESP 12; O2SAT 95
[2024-11-02 08:04] VITALS: BP 130/92; PULSE 97; RESP 12; TEMP 98.1; O2SAT 95
--- NOTE | 2024-11-02 12:31 | PROGRESS NOTE ---
Progress Note Dictate Providers to CC ~ Antibiotic Ordered?: No Objective Vitals Vital Signs Date Time Temp Pulse Resp B/P (MAP) Pulse Ox O2 Delivery O2 Flow Rate FiO2 11/02/24 08:04 98.1 97 12 130/92 (105) 95 Room Air 10/31/24 07:00 0.0 Problem\\Assessment\\Plan Problems/Diagnosis: (1) Schizophrenia Psychiatrist's Progress Note Date of Service: Nov 02, 2024 Notes Pt admitted on 5150 GD, per hold, the crisis team were called multiple times by the patient family and Shascom due to patient erratic behavior, was making nonsensical statements. During assessment today, patient noted to be very lethargic, not able to provide any history, on one-one monitoring, per report he had received zyprexa 10 mg IM at earlier today in ER. Obtained collateral information from his sister who endorsed pt was diagnosed with schizophrenia as an adult a couple of years ago, was , has 4 children of which 3 are adults, he had a good life but his a couple of years ago and since then has been dealing with medical and mental issues. was hearing voices and admitted at [facility], did well, started living by himself in a motel, later moved in with his family but it became difficult to take care of him and was send back to [facility], was doing very well but during his anniversary, stopped taking his medication for several weeks and started to decline again. Per sister there is family hx of psychiatric illness, their sister who is currently was Bipolar. Assessment: patient evaluated in the conference room, report having audio hallucinations when he work up today, voices " what are you going to do now" told them that he can not change the past or the future, only concentrating for now. Have quieten down for now. States he is taking one day at a time. Discussed tx, he is ok to increase seroquel am dose to 50 mg. No other concerns reported. Will continue to assess him daily and adjust treatment as needed to further stabilize patient. Premature discharge will most likely result in readmission. Mental Status Exam Appearance: casual dressed in blue sweatshirts Speech: Normal rate/tone Eye Contact: fair Motor Activity: Normal Affect: congruent Mood: calm Orientation Impairment: None Memory Impairment: none Attention: normal Hallucinations: audio Suicidality: denies Homicidality: denies Delusions: none Behavior: cooperative Insight: fair Judgment: fair LBS , urine protein =>300, 10/09/24 urine ketones =15, Toxicology negative for all substances of abuse. 10/10/24 MCHC =32.9, Neutrophils =19.9. 10/11/24 BUN =24, B BUN/creatinine ratio= 28.2, Albumin= 3.1. Medication management: Prazosin 1 mg bid Increase to Seroquel 50 mg q am Geodon 40 mg bid Seroquel to 400 hs Wellbutrin XL 300 q am Effexor 150 mg daily Hydroxyzine 50 mg q 6 prn anxiety Continue one to one monitoring Hold: Vol Total time spend: 50 minutes including patient assessment, reviewing labs/notes, meds adjustments, consulting with SW/RN and completing this note CODING VISIT-PSYCHIATRY Date of Service: Nov 02, 2024 Billing Provider: ALBERTO EVANS DNP Psych Common Visit Codes: [id number] INP/OBS CARE(Mod) Problem Qualifiers (1) Schizophrenia: Qualified Codes: F20.3 - Undifferentiated schizophrenia ALBERTO EVANS DNP Nov 02, 2024 12:31
[2024-11-02 20:00] VITALS: BP_SYST 112; BP_SYST 127; BP_DIAS 67; BP_DIAS 86; PULSE 70; PULSE 98; RESP 16; RESP 18; TEMP 98; TEMP 98.8; O2SAT 94; O2SAT 98
[2024-11-03 07:00] VITALS: RESP 14; O2SAT 98
[2024-11-03] MEDS: QUEtiapine 25mg tablet PO SCH (07:17)
[2024-11-03 07:43] VITALS: BP 112/70; PULSE 88; RESP 14; TEMP 97.2; O2SAT 98
[2024-11-03 19:00] VITALS: RESP 14; O2SAT 97
--- NOTE | 2024-11-03 19:02 | PROGRESS NOTE ---
Progress Note Dictate Providers to CC ~ Antibiotic Ordered?: No Objective Vitals Vital Signs Date Time Temp Pulse Resp B/P (MAP) Pulse Ox O2 Delivery O2 Flow Rate FiO2 11/03/24 07:43 97.2 88 14 112/70 (84) 98 Room Air 10/31/24 07:00 0.0 Problem\\Assessment\\Plan Problems/Diagnosis: (1) Schizophrenia Psychiatrist's Progress Note Date of Service: Nov 03, 2024 Notes Pt admitted on 5150 GD, per hold, the crisis team were called multiple times by the patient family and Shascom due to patient erratic behavior, was making nonsensical statements. During assessment today, patient noted to be very lethargic, not able to provide any history, on one-one monitoring, per report he had received zyprexa 10 mg IM at earlier today in ER. Obtained collateral information from his sister who endorsed pt was diagnosed with schizophrenia as an adult a couple of years ago, was , has 4 children of which 3 are adults, he had a good life but his a couple of years ago and since then has been dealing with medical and mental issues. was hearing voices and admitted at [facility], did well, started living by himself in a motel, later moved in with his family but it became difficult to take care of him and was send back to [facility], was doing very well but during his anniversary, stopped taking his medication for several weeks and started to decline again. Per sister there is family hx of psychiatric illness, their sister who is currently was Bipolar. Assessment: patient evaluated in the conference room, In no acute distress, he denied all psychiatric symptoms today, stating his medication is working, No SI/HI/AVH, requests to be discharged home this coming friday so that he does not lose his apartment, " yesterday, I did not know what to do but I have a purpose now" requests to be placed on temporary disability, advised that if he completes the form that he will be provided with disability from 10/11/2024 to 01/11/2025. Patient is on vol, he is denying all symptoms. There have been no behavioral or safety concerns reported by staff. Will continue daily assessment and medication adjustment as needed until discharge this coming Friday Mental Status Exam Appearance: casual dressed in blue sweatshirts Speech: Normal rate/tone Eye Contact: fair Motor Activity: Normal Affect: euthymic Mood: calm Orientation Impairment: None Memory Impairment: none Attention: normal Hallucinations: Denies Suicidality: denies Homicidality: denies Delusions: none Behavior: cooperative Insight: fair Judgment: fair LBS , urine protein =>300, 10/09/24 urine ketones =15, Toxicology negative for all substances of abuse. 10/10/24 MCHC =32.9, Neutrophils =19.9. 10/11/24 BUN =24, B BUN/creatinine ratio= 28.2, Albumin= 3.1. Medication management: Prazosin 1 mg bid Seroquel 50 mg q am Geodon 40 mg bid Seroquel to 400 hs Wellbutrin XL 300 q am Effexor 150 mg daily Hydroxyzine 50 mg q 6 prn anxiety Continue one to one monitoring Hold: Vol Total time spend: 50 minutes including patient assessment, reviewing labs/notes, meds adjustments, consulting with SW/RN and completing this note CODING VISIT-PSYCHIATRY Date of Service: Nov 03, 2024 Billing Provider: ALBERTO EVANS DNP Psych Common Visit Codes: [id number] INP/OBS CARE(Mod) Problem Qualifiers (1) Schizophrenia: Qualified Codes: F20.3 - Undifferentiated schizophrenia ALBERTO EVANS DNP Nov 03, 2024 19:02
--- NOTE | 2024-11-03 19:13 | PROGRESS NOTE ---
Daily Progress Note Providers to CC ~ Antibiotic Timeout Antibiotic Ordered?: No Subjective Patient is seen in his room in presence of nursing staff he looked comfortable denied any concerns. Passed stools today Objective Vital Signs Date Time Temp Pulse Resp B/P (MAP) Pulse Ox O2 Delivery O2 Flow Rate FiO2 11/03/24 07:43 97.2 88 14 112/70 (84) 98 Room Air 10/31/24 07:00 0.0 General-patient not in any acute distress, alert awake , obese, age- appropriate/looks comfortable HEENT-atraumatic normocephalic, neck supple without elevated JVD, no thyromegaly or carotid bruit. No lymphadenopathy bilaterally. Eyes-no icterus or pallor seen in eyes Chest-clear to auscultation bilaterally, breathing nonlabored no tachypnea, no wheezing, no crepitation, no crackles. Heart-S1-S2 normal, regular heart rate no murmur Abdomen bowel sounds positive on auscultation, soft nondistended nontender no guarding, no rigidity Skin no active skin rash Neurology-grossly intact, nonfocal alert awake oriented Extremity- no pedal edema able to move all 4 extremities/ambulate Psychiatry - patient is not confused or agitated cooperated during physical examination Problem\Assessment\Plan Problems/Diagnosis: (1) Schizophrenia 54 years old male admitted at [facility] # Schizophrenia: Treat per psych recommendations # hypokalemia-resolved Patient has no acute medical issues. Date of Service: Nov 03, 2024 Billing Provider: RACHID TYSON MD Common Visit Codes: [id number] INP/OBS CARE(LOW) Problem Qualifiers (1) Schizophrenia: Qualified Codes: F20.3 - Undifferentiated schizophrenia RACHID TYSON MD Nov 03, 2024 19:13
[2024-11-03 20:00] VITALS: BP 133/88; PULSE 100; RESP 14; TEMP 98.3; O2SAT 97
[2024-11-03] MEDS ORDERED: BUPR-480 PO (20:12)
[2024-11-03] MEDS ORDERED: VENL-191 PO (20:12)
[2024-11-03] MEDS ORDERED: PRAZ2CAP2 PO (20:12)
[2024-11-03] MEDS ORDERED: ZIPR20CA12 PO (20:12)
[2024-11-03] MEDS ORDERED: ATOR20TA66 PO (20:12)
[2024-11-04 07:30] VITALS: BP 149/81; PULSE 92; RESP 16; TEMP 98.6; O2SAT 95
[2024-11-04] MEDS ORDERED: QUET100T34 PO (09:56)
[2024-11-04] MEDS ORDERED: QUET25TA36 PO (09:56)
--- NOTE | 2024-11-04 14:17 | PROGRESS NOTE ---
Progress Note Dictate Providers to CC ~ Central Line/PICC still needed: N\\A Antibiotic Ordered?: No MRSA Education MRSA Education Provided to pt: No Objective Vitals Vital Signs Date Time Temp Pulse Resp B/P (MAP) Pulse Ox O2 Delivery O2 Flow Rate FiO2 11/04/24 07:30 98.6 92 16 149/81 (103) 95 Room Air 0.0 Psychiatrist's Progress Note Date of Service: Nov 04, 2024 Notes Pt admitted on 5150 GD, per hold, the crisis team were called multiple times by the patient family and Shascom due to patient erratic behavior, was making nonsensical statements. During assessment today, patient noted to be very lethargic, not able to provide any history, on one-one monitoring, per report he had received zyprexa 10 mg IM at earlier today in ER. Obtained collateral information from his sister who endorsed pt was diagnosed with schizophrenia as an adult a couple of years ago, was , has 4 children of which 3 are adults, he had a good life but his a couple of years ago and since then has been dealing with medical and mental issues. was hearing voices and admitted at [facility], did well, started living by himself in a motel, later moved in with his family but it became difficult to take care of him and was send back to [facility], was doing very well but during his anniversary, stopped taking his medication for several weeks and started to decline again. Per sister there is family hx of psychiatric illness, their sister who is currently was Bipolar. Assessment: patient evaluated in the observation room, In no acute distress, patient endorses "good."Patient endorses no worsening mental health symptoms. Per staff report no behavioral or safety concerns reported by staff. Will continue daily assessment and medication adjustment as needed until discharge this coming Friday Mental Status Exam Appearance: Dressed in street clothing Speech: Normal rate/tone Eye Contact: fair Motor Activity: Normal Affect: euthymic Mood: calm Orientation Impairment: None Memory Impairment: none Attention: normal Hallucinations: Denies Suicidality: denies Homicidality: denies Delusions: none Behavior: cooperative Insight: fair Judgment: fair LBS , urine protein =>300, 10/09/24 urine ketones =15, Toxicology negative for all substances of abuse. 10/10/24 MCHC =32.9, Neutrophils =19.9. 10/11/24 BUN =24, B BUN/creatinine ratio= 28.2, Albumin= 3.1. Medication management: Prazosin 1 mg bid Seroquel 50 mg q am Geodon 40 mg bid Seroquel to 400 hs Wellbutrin XL 300 q am Effexor 150 mg daily Hydroxyzine 50 mg q 6 prn anxiety Continue one to one monitoring Hold: Vol Total time spend: 25 minutes including patient assessment, reviewing labs/notes, meds adjustments, consulting with SW/RN and completing this note CODING VISIT-PSYCHIATRY Date of Service: Nov 04, 2024 Billing Provider: JOSELYN DAVISON APRN Psych Common Visit Codes: [id number] INP/OBS CARE(Low) JOSELYN DAVISON APRN Nov 04, 2024 14:17
[2024-11-04 19:00] VITALS: RESP 18; O2SAT 96
[2024-11-04 20:00] VITALS: BP 139/86; PULSE 89; RESP 18; TEMP 98.7; O2SAT 99
[2024-11-05 07:30] VITALS: BP 120/73; PULSE 78; RESP 16; TEMP 97.1; O2SAT 99
--- NOTE | 2024-11-05 10:45 | DISCHARGE SUMMARY ---
Discharge Summary Providers to ~ Discharge Summary Admission Diagnosis: Schizophrenia Hospital Course DATE OF ADMISSION: 10/11/24 DATE OF DISCHARGE:11/05/24 Discharge Diagnosis\Comment: Master was admitted on a 5150 GD. He has a diagnosis of schizophrenia, was hearing voices, had stopped taking his medication, leading to a decline in his ability to care for himself During his hospitalization, Master received comprehensive care to stabilize his condition and address his symptoms, he was restarted on his antipsychotic medication regimen, which led to a significant reduction in his auditory hallucinations and an improvement in his overall functioning. He participated in group therapy sessions focused on medication adherence, self-care strategies, and symptom management. These sessions aimed to enhance his understanding of his condition and the importance of ongoing treatment. Mental Status Examination at Discharge: Appearance: Well-groomed, appropriate attire Behavior: Cooperative, calm Mood: Stable Affect: Appropriate to content Thought Process: Logical and coherent Thought Content: No current hallucinations or delusions Cognition: Alert and oriented to person, place, and time Insight and Judgment: Improved, acknowledges the need for medication adherence Operations\Procedures: none Consultants: Hospitalist team managed patient medical concerns Complications: none Condition on DC: Stable 2 or more antipsychotic used: Yes 2/more antipsychotic addressed: Yes Does Patient smoke: No Smoking education given.: No Discharge Summary: At the time of discharge, Master's risk of self-harm or harm to others is assessed as low. He has shown improvement in managing his symptoms and is committed to following up with his mental health care. Master was advised to follow up with [facility] for ongoing management of his symptoms and to ensure adherence to his treatment plan. Discharge Instructions: Continue prescribed medications as directed. 30 day supply of all his medications prescribed Engage in regular follow-up appointments with [facility]. Utilize crisis hotline and emergency resources if needed. Crisis Hotline and Emergency Resources: National Suicide Prevention Lifeline: 9-616-489-TALK ( ) Local Crisis Line: 144 In case of emergency, call 911 or go to the nearest emergency room *Problems/Diagnosis: (1) Schizophrenia Status: Chronic Total Time Spent on D/C: > 30 Minutes Counseling Services Smoking & Tobacco Cessation: N/A CODING VISIT-PSYCHIATRY Date of Service: Nov 09, 2024 Billing Provider: ALBERTO EVANS DNP Psych Common Visit Codes: [id number] DISCH DAY >30min Problem Qualifiers (1) Schizophrenia: Qualified Codes: F20.3 - Undifferentiated schizophrenia ALBERTO EVANS [facility] Nov 05, 2024 10:45
== END 2024-11-05 10:08 | disposition home or self-care (01) | DRG 885 ==
LOC: ER 18:28 → ADULT MH 10-11 04:55
PROVIDERS: ADMIT Psychiatry & Neurology Psychiatry; ATTEND Psychiatry & Neurology Psychiatry
PROC: GZHZZZZ Group Psychotherapy (ICD-10-PCS; principal; 2024-10-30)
PROC: GZ51ZZZ Individual Psychotherapy, Behavioral (ICD-10-PCS; 2024-10-30)
DX: F20.3 Undifferentiated schizophrenia (principal); E11.9 Type 2 diabetes mellitus without complications; F29 Unspecified psychosis not due to a substance or known physiological condition; Z20.822 Contact with and (suspected) exposure to COVID-19; E87.6 Hypokalemia; F41.9 Anxiety disorder, unspecified; Z79.899 Other long term (current) drug therapy; Z72.0 Tobacco use; Z56.0 Unemployment, unspecified
CPT/HCPCS: 36415; 80048; 80053; 80061; 80305; 80320; 81001; 83036; 84443; 85025; 87081; 87811; 96372; 99285; A6250; J1200; J1630; J3360; J3490; Q0163; Q0177

== ENCOUNTER 2025-01-12 00:11 | Emergency (ER) | payer BC, MEDICAID ==
[~2025-01-12] VITALS: Ht 162.6 cm; Wt 95.5 kg
[~2025-01-12 00:11] MED LIST changes: +ATOR20TA66 PO; -BREX0.5T PO; +BUPR-480 PO; -DEXT5TAB31 PO; +HYDR50TA65 PO; +HYDROCHLOROTHIAZIDE PO; -LORA-269 PO; -Lorazepam PO; +PRAZ2CAP2 PO; +QUET100T34 PO; +QUET25TA36 PO; -TRAZ-251 PO; -TRAZ-256 PO; +VENL-191 PO; -VENL150T3 PO; +ZIPR20CA12 PO
--- NOTE | 2025-01-12 05:05 | Physician Documentation ---
History of Present Illness ~ Chief Complaint: Knee Pain Stated Complaint: BACK AND KNEE PAIN Time Seen by MD: 05:04 OK to notify your PCP?: Yes Primary Medical Doctor: NONE Source: patient, RN/, RN notes reviewed, old records Mode of Arrival: POV Exam Limitations: no limitations HPI BED 11 This patient is a 54 y/o male who presents to ED with chief complaint of right knee pain. Patient reports that this pain started a month ago, and has been gradually worsening. He states it feels similar to pain he had in his left knee after he tore his meniscus and had to have it surgically repaired. He suspects he may have another meniscus tear in his right knee now. He denies any swelling of the right knee, and states he is able to ambulate but with some difficulty. Patient has not seen his primary care doctor for this. Patient also complaining of exacerbation of his chronic lower back pain. Patient also comes in stating his primary physician working him up is requesting he get CT head as well as an EKG. Patient denies any other associated symptoms at this time. Patient denies any alleviating or exacerbating factors. Patient also reports his primary care physician has been concerned about psych medications prolonged QTC in the need for EKG which was provided. CT of the head was also requested by the same doctor. Tetanus witin 5 years: No Medication Reconciliation Allergies: Coded Allergies: No Known Allergies (Unverified , 10/09/24) Scheduled Atorvastatin Calcium (Atorvastatin Calcium), 20 MG PO DAILY Bupropion HCl (Bupropion Xl), 1 TAB PO QAM Prazosin Hcl (Prazosin Hcl), 1 CAP PO HS Quetiapine Fumarate (Quetiapine Fumarate), 400 MG PO HS Quetiapine Fumarate (Quetiapine Fumarate), 50 MG PO DAILY Venlafaxine Hcl* (Effexor*), 75 MG PO BID Ziprasidone Hcl (Ziprasidone Hcl), 40 MG PO BID Scheduled PRN Hydroxyzine HCl (Hydroxyzine HCl), 1 TAB PO BID PRN for for anxiety/agitation, (Reported) Miscellaneous Medications [Hydrochlorothiazide], 12.5 MG PO, (Reported) Past Medical History Past Medical History: Hypertension, Anxiety, Depression Past Surgical History: orthopedic surgeries 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 Physical Exam Vital Signs: RN Vital Signs have been reviewed: Yes, Temperature: 98.2, Heart Rate: 83, Respiratory Rate: 14, BP: 136/84, Pulse Oximetry: 98, Weight: 95.450 Oxygen Flow Rate: 0 Physical Exam General: The patient is well developed, well nourished, nontoxic appearing and is in no acute distress. Skin: [place], warm and dry with no rashes. HEENT: Head was normocephalic and atraumatic. Eyes - pupils equal, round, reactive to light and accommodation. Extraocular movements were intact. Conjunctivae were nonicteric. The mouth and oropharynx were clear with moist mucous membranes. There were no pharyngeal exudates or erythema. Neck: Supple and nontender. There was no jugular venous distention, lymphadenopathy, thyromegaly or masses. Chest: Clear to auscultation bilaterally without wheezes, rales or rhonchi. No accessory muscle use. No dullness to percussion. Heart: Rate regular and rhythmic. S1, S2. No murmurs. Palpation of the chest wall was normal. No rubs or thrills. Abdomen: Soft, nontender and nondistended. Positive bowel sounds. No guarding or rebound. No hepatosplenomegaly or palpable masses. Back: L4-L5 paraspinal tenderness no midline tenderness. Straight leg test is negative Extremities: RLE: Full ROM of the right knee and leg,. No laxity of the joint. No effusions. Walks with a limp. No cyanosis, clubbing or edema. The patient moves all extremities. Pulses were equal and symmetric. Neurologic: Motor and sensation grossly intact. A & O x4. Psychologic: The patient was oriented to person, place and time. Progress Progress Note 0517: Case discussed with hospitalist who agrees to evaluate patient for admission. Results/Orders Reviewed/noted all lab results: Yes Results/Orders Orders - GIBSON MARQUEZ MD Electrocardiogram (01/12/25 05:13) Ct Head (01/12/25 05:29) Knee, Complete (01/12/25 05:09) Completed Orders - GIBSON MARQUEZ MD Hydrocodone/Apap 5/325mg Tab ([place] 5/32 (01/12/25 05:10) Ketorolac Trometh 30mg/Ml Vial (Toradol (01/12/25 05:10) Ct Head (01/12/25 05:29) Knee, Complete (01/12/25 05:09) Medications Received in ER Medications (Trade) Dose Ordered Sig/Zaida Route PRN Reason Start Time Stop Time Status Last Admin Dose Admin ([place] 5/325mg tablet) 1 tab ONCE ONCE PO 01/12/25 05:10 01/12/25 05:11 DC 01/12/25 05:30 1 TAB (Toradol inj. 30mg/ml) 60 mg ONCE ONCE IM 01/12/25 05:10 01/12/25 05:11 DC 01/12/25 05:31 60 MG Vital Signs 01/12/25 01/12/25 01/12/25 01/12/25 00:17 02:00 05:00 05:30 Temp 98.2 Pulse 110 98 83 Resp 16 16 14 14 B/P (MAP) 125/86 128/80 (96) 136/84 (101) Pulse Ox 94 99 98 O2 Flow Rate 0 01/12/25 01/12/25 05:31 06:07 Pulse 70 Resp 14 16 B/P (MAP) 115/70 (85) Pulse Ox 99 O2 Flow Rate 0 Re-Evaluation Re-Evaluation : Re-Evaluation: Improved Progress Patient was seen and examined. Patient is given reassurance. Patient received Toradol as well as [place] no prescription will be given patient can take outpatient Motrin as needed. Patient is complaining of severe right pain has a significant abnormal gait mostly with his left knee but the complaint is with the right knee. No effusion x-ray was negative. Cat scan was also negative. EKG was obtained. Patient was then given reassurance and discharged home. Patient should follow up with his primary care physician for outpatient workups physical therapy or orthopedic referral if indicated for chronic pain and possible MRI for meniscal injuries. EKG/XRAY/CT/US/VASC/MRI EKG : Additional Comment 8915: EDMD Dr. Marquez interpreted the EKG to show normal sinus rhythm at a rate of 89bpm, poor R wave progression, nonspecific ST changes. QTc of 445. CT : Interpreted By: both CT: head With Contrast?: No Impression [facility] [place], [facility] [id number] CAT SCAN Patient: CRUZITO GUERRA Medical Record: [id number] [facility] : 1970, Age: 54 Sex: Male Location: ER Patient Status: [facility] ER Service Date/Time: 01/12/25528 Ordering Physician: GIBSON MARQUEZ MD Exam: CT HEAD EXAM: CT CT HEAD INDICATION: aloc TECHNIQUE: CT of the head without intravenous contrast. Radiation Dose : 1. Head: CT Dose: CTDI volume is 63.66 mGy. Dose-length product is 1168.96 mGy*cm The dose indicators for CT are the volume Computed Tomography (CT) Dose Index (CTDIvol) and the Dose Length Product (DLP), and are measured in units of mGy and mGy-cm, respectively. These indicators are not patient dose, but values generated from the CT scanner acquisition factors. The report includes radiation exposure data for exposures received during this examination. COMPARISON: None FINDINGS: There is no evidence of acute intracranial hemorrhage, extra-axial collection, mass effect, midline shift, herniation or hydrocephalus. The ventricles, sulci and cisterns are age appropriate. Álvaro cisterna magna. The mireles-white differentiation is intact. The visualized paranasal sinuses and mastoid air cells are clear. The surrounding soft tissues and osseous structures are unremarkable. IMPRESSION: 1. No acute intracranial abnormality. Radiation optimization: All CT scans at this facility use at least one of these dose optimization techniques: automated exposure control mA and/or kV adjustment per patient size (includes targeted exams where dose is matched to clinical indication) or iterative reconstruction. Electronically Signed by:MIKE ADAMS MD Date & Time: 01/12/25555 Dictated by: MIKE ADAMS MD Dictation date and time: 01/12/25 0556 Primary Care Provider: NO PRIMARY CARE PROVIDER cc: GIBSON MARQUEZ MD ~ EDMD Dr. Marquez reviewed imaging and agrees with above findings. Medical Decision Making Additional info obtained from: old records Knee Diff Dx:Considerations: Include: Arthritis, DJD, Gout, Meniscus injury, Rheumatoid arthritis, Sprain, Sprain-MCL, Sprain-LCL, Sprain-ACL, Sprain-PCL, Other Departure Time of Disposition: 05:17 Disposition: 01 HOME / SELF CARE / HOMELESS Impression: Primary Impression: Knee pain Qualified Codes: M25.561 - Pain in right knee Additional Impression: Back pain Qualified Codes: M54.50 - Low back pain, unspecified; G89.29 - Other chronic pain Condition: Stable Discharge Instructions: Acute Knee Pain, Adult Additional Instructions: Please follow up with your regular doctor at [facility] for referral to an orthopedist and further evaluation of your knee pain. Referrals: NO PRIMARY CARE PROVIDER (PCP) Education Educated: Patient Educated regarding: diagnosis, need for follow up Signature Scribe Signature: Scribed for Gibson Marquez MD by Kira Mcmullen. 01/12/25 05:15 Attestation: The note accurately reflects work and decisions made by me.Gibson Marquez MD 01/12/25 05:05 GIBSON MARQUEZ MD Jan 12, 2025 05:05
[2025-01-12] MEDS: HYDROcodone/acetaminophen 5mg/325mg tablet PO ONE (05:30)
[2025-01-12] MEDS: ketorolac trometh 30MG/ML vial 30 MG/ML VIAL IM ONE (05:31)
--- NOTE | 2025-01-12 05:58 | RADIOLOGY REPORT ---
EXAM: CT CT HEAD INDICATION: aloc TECHNIQUE: CT of the head without intravenous contrast. Radiation Dose : 1. Head: CT Dose: CTDI volume is 63.66 mGy. Dose-length product is 1168.96 mGy*cm The dose indicators for CT are the volume Computed Tomography (CT) Dose Index (CTDIvol) and the Dose Length Product (DLP), and are measured in units of mGy and mGy-cm, respectively. These indicators are not patient dose, but values generated from the CT scanner acquisition factors. The report includes radiation exposure data for exposures received during this examination. COMPARISON: None FINDINGS: There is no evidence of acute intracranial hemorrhage, extra-axial collection, mass effect, midline s hift, herniation or hydrocephalus. The ventricles, sulci and cisterns are age appropriate. Álvaro cisterna magna. The mireles-white differentiation is intact. The visualized paranasal sinuses and mastoid air cells are clear. The surrounding soft tissues and osseous structures are unremarkable. IMPRESSION: 1. No acute intracranial abnormality. Radiation optimization: All CT scans at this facility use at least one of these dose optimization jerome hniques: automated exposure control mA and/or kV adjustment per patient size (includes targeted exam s where dose is matched to clinical indication) or iterative reconstruction.
--- NOTE | 2025-01-12 06:21 | RADIOLOGY REPORT ---
PROCEDURE: Right knee radiographs. INDICATION: PAIN RT. KNEE TECHNIQUE: 3 views of the right knee were obtained. COMPARISON: None FINDINGS: There is no evidence of fracture or dislocation. Joint spaces are maintained. The soft tis sues are unremarkable. IMPRESSION: 1. No fracture or dislocation.
[2025-01-12 06:25] VITALS: BP 134/88; PULSE 78; RESP 16; TEMP 98.1; O2SAT 99
--- NOTE | 2025-01-12 06:49 | ELECTROCARDIOGRAPH REPORT ---
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 Silvestre Cummings Measurements Intervals [place] Rate: 89 P: 55 ID: [id number] QRS: 0 QRSD: 101 T: -9 QT: 365 QTc: 445 Interpretive Statements Sinus rhythm Low voltage, precordial leads Abnormal R-wave progression, early transition Borderline T abnormalities, inferior leads Baseline wander in lead(s) II,III,aVF Electronically Signed On 01-12-2025 19:38:[address] Silvestre Cummings Please click the below link to view image of tracing.
== END 2025-01-12 06:26 | disposition home or self-care (01) ==
LOC: ER 00:12
DX: M25.561 Pain in right knee (principal); R51.9 Headache, unspecified; G89.29 Other chronic pain; M54.50 Low back pain, unspecified; F32.A Depression, unspecified; F41.9 Anxiety disorder, unspecified; I10 Essential (primary) hypertension; Z79.899 Other long term (current) drug therapy; Z56.0 Unemployment, unspecified
CPT/HCPCS: 70450; 73564; 93005; 96372; 99285; J1885

== ENCOUNTER 2025-01-26 19:15 | Emergency (ER) | payer MEDICAID ==
[~2025-01-26] VITALS: Ht 172.7 cm; Wt 95.5 kg
[2025-01-26 19:24] VITALS: BP 149/98; PULSE 98; O2SAT 97
[2025-01-26 22:22] VITALS: TEMP 97
--- NOTE | 2025-01-26 22:27 | Physician Documentation ---
History of Present Illness ~ Chief Complaint: Leg Pain Stated Complaint: R KNEE PAIN Time Seen by MD: 22:06 Primary Medical Doctor: NONE HPI Patient is a 54-year-old male that presents to the emergency department for evaluation of right knee pain after being struck in the medial aspect of the right knee by a football player wearing a helmet today while referring again. Patient reports tenderness and pain to the right knee. Patient reports he is able to ambulate and bear weight on the knee. Patient denies taking any Tylenol or ibuprofen to help with pain. Patient denies any other symptoms at this time. Tetanus witin 5 years: No Medication Reconciliation Allergies: Coded Allergies: No Known Allergies (Unverified , 10/09/24) Scheduled Atorvastatin Calcium (Atorvastatin Calcium), 20 MG PO DAILY Bupropion HCl (Bupropion Xl), 1 TAB PO QAM Prazosin Hcl (Prazosin Hcl), 1 CAP PO HS Quetiapine Fumarate (Quetiapine Fumarate), 400 MG PO HS Quetiapine Fumarate (Quetiapine Fumarate), 50 MG PO DAILY Venlafaxine Hcl* (Effexor*), 75 MG PO BID Ziprasidone Hcl (Ziprasidone Hcl), 40 MG PO BID Scheduled PRN Hydroxyzine HCl (Hydroxyzine HCl), 1 TAB PO BID PRN for for anxiety/agitation, (Reported) Miscellaneous Medications [Hydrochlorothiazide], 12.5 MG PO, (Reported) Past Medical History Past Medical History: Hypertension, Anxiety, Depression Past Surgical History: orthopedic surgeries 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 Physical Exam Vital Signs: Temperature: 97.0, Heart Rate: 98, Respiratory Rate: 20, BP: 149/98, Pulse Oximetry: 97, Weight: 95.450 Oxygen Flow Rate: 0 Physical Exam VITALS: Reviewed and as above. GENERAL: Alert, no apparent distress. HEENT: Normocephalic, atraumatic, PERRL, EOMI, dry mucosa, no erythema RESPIRATORY: Lungs clear, normal breath sounds, no respiratory distress. CHEST: No accessory muscle use, no retractions CV: Regular rate, rhythm, no edema, no murmur, No: JVD GI: Soft, non-tender, bowels sounds present, no rebound, guarding, or rigidity BACK: No CVA tenderness, or swelling MUSCULOSKELETAL No deformities, no edema, pain to the right knee with examination, negative varus valgus. SKIN: Warm and dry, no rash NEURO: Oriented x4, No motor or sensory deficit PSYCH: Normal mood and affect, no agitation Progress Results/Orders Results/Orders Orders - JUANA KIRKLAND Saulo [employer] Ketorolac Trometh 15mg/Ml Vial (Toradol (01/26/25 22:25) Acetaminophen 325mg Tablet (Tylenol Tabl (01/26/25 22:25) Vital Signs 01/26/25 19:24 Temp 97.0 Pulse 98 Resp 20 B/P (MAP) 149/98 Pulse Ox 97 O2 Flow Rate 0 Medical Decision Making Findings Presents for evaluation of right knee pain after being struck in the knee earlier today. Given history, exam and workup patient likely has tissue injury. I have low suspicion for fracture, dislocation, significant ligamentous injury, septic arthritis, gout flare, new autoimmune arthropathy, or gonococcal arthropathy. I have recommended the patient take ibuprofen every 6 hours for the next 24 hours to help reduce inflammation. Patient will follow up with his primary care provider. We will return to the emergency department with any worsening of his current symptoms or any additional concerning symptoms that we discussed here today i.e. swelling redness warmth increased pain inability to bend his knee bear weight on his knee, ambulate, numbness tingling or any other concerning symptoms. Patient was provided with a Toradol injection and Tylenol here in the emergency department with good improvement. Departure Disposition: 01 HOME / SELF CARE / HOMELESS Impression: Primary Impression: Lower extremity sprain Additional Impressions: Superficial bruising Soft tissue injury of knee Knee pain Condition: Stable Discharge Instructions: RICE Therapy for Routine Care of Injuries, [id number] Additional Instructions: Presents for evaluation of right knee pain after being struck in the knee earlier today. Given history, exam and workup patient likely has tissue injury. I have low suspicion for fracture, dislocation, significant ligamentous injury, septic arthritis, gout flare, new autoimmune arthropathy, or gonococcal arthropathy. I have recommended the patient take ibuprofen every 6 hours for the next 24 hours to help reduce inflammation. Patient will follow up with his primary care provider. We will return to the emergency department with any worsening of his current symptoms or any additional concerning symptoms that we discussed here today i.e. swelling redness warmth increased pain inability to bend his knee bear weight on his knee, ambulate, numbness tingling or any other concerning symptoms. Patient was provided with a Toradol injection and Tylenol here in the emergency department with good improvement. Follow up with her primary care provider. Please return to the emergency department with any worsening or recurrent symptoms or any additional concerning symptoms that we discussed here today. Referrals: NO PRIMARY CARE PROVIDER (PCP) Education Educated: Patient Educated regarding: diagnosis, treatment, need for follow up Signature Scribe Signature: A Attestation: Scribed for Juana Kirkland by YUMIKO House . 01/26/25 22:29 JUANA KIRKLAND Jan 26, 2025 22:27
[2025-01-26 22:45] VITALS: RESP 18
[2025-01-26] MEDS: ketorolac trometh 15mg/ml vial 15 MG/ML ML IM ONE (22:45)
== END 2025-01-26 23:18 | disposition home or self-care (01) ==
LOC: ER 19:16
DX: S80.01XA Contusion of right knee, initial encounter (principal); I10 Essential (primary) hypertension; F41.9 Anxiety disorder, unspecified; F32.A Depression, unspecified; Z56.0 Unemployment, unspecified; Z79.899 Other long term (current) drug therapy; W22.8XXA Striking against or struck by other objects, initial encounter; Y93.89 Activity, other specified; Y92.89 Other specified places as the place of occurrence of the external cause; Y99.8 Other external cause status
CPT/HCPCS: 96372; 99283; J1885

== ENCOUNTER 2025-02-14 15:46 | Emergency (ER) | payer MEDICAID ==
[~2025-02-14] VITALS: Ht 177.8 cm; Wt 124.3 kg
[2025-02-14 15:53] VITALS: BP 146/101; PULSE 106; RESP 18; TEMP 97.6; O2SAT 97
--- NOTE | 2025-02-14 16:21 | Physician Documentation ---
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 Patient states he does have previous history of meniscal tear of his left knee and states this right knee feels very similar and also much more severe. Patient states he needs something for the pain. He has no other concern or complaint at this time. Does admit to previously having had a Toradol shot. Tetanus witin 5 years: No Medication Reconciliation Allergies: Coded Allergies: No Known Allergies (Unverified , 10/09/24) Scheduled Atorvastatin Calcium (Atorvastatin Calcium), 20 MG PO DAILY Bupropion HCl (Bupropion Xl), 1 TAB PO QAM Meloxicam (Meloxicam), 1 TAB PO DAILY Prazosin Hcl (Prazosin Hcl), 1 CAP PO HS Quetiapine Fumarate (Quetiapine Fumarate), 400 MG PO HS Quetiapine Fumarate (Quetiapine Fumarate), 50 MG PO DAILY Venlafaxine Hcl* (Effexor*), 75 MG PO BID Ziprasidone Hcl (Ziprasidone Hcl), 40 MG PO BID Scheduled PRN Hydrocodone Bit/Acetaminophen (Hydrocodone-Apap 10-325 Tablet), 1 TAB PO TID PRN PRN for pain Hydroxyzine HCl (Hydroxyzine HCl), 1 TAB PO BID PRN for for anxiety/agitation, (Reported) Miscellaneous Medications [Hydrochlorothiazide], 12.5 MG PO, (Reported) Past Medical History Past Medical History: Hypertension, Anxiety, Depression Past Surgical History: orthopedic surgeries Patient History: Depression FATHER No family history of mental disorder Alcohol Use: Sober Drug Use: none Lives with: Family Lives In: Home Occupation: unemployed Review of Systems Constitutional: Denies: chills, fever, weakness Eyes: Denies: pain, blurred vision ENT: Denies: ear pain, nose pain, throat pain, mouth pain Respiratory: Denies: cough, shortness of breath Cardiovascular: Denies: chest pain, palpitations Gastrointestinal: Denies: abdominal pain, nausea, vomiting Genitourinary: Denies: burning, dysuria Male Genitalia: Denies: penile discharge, testicular pain Neurological: Denies: headache, dizziness Musculoskeletal: Denies: pain, swelling Integumentary: Denies: rash, lesions Allergic/Immunologic: Denies: hives, itching Hematologic/Lymphatic: Denies: no symptoms reported Psychiatric: Denies: depression, anxiety Physical Exam Vital Signs: Temperature: 97.6, Source: Temporal, Heart Rate: 106, Respiratory Rate: 18, BP: 146/101, Pulse Oximetry: 97, Weight: 124.300 Oxygen Flow Rate: 0 Physical Exam General: Awake and Alert, no acute distress. HEENT: Conjunctiva pink, Sclera clear, Mucus Membranes moist. Neck: Supple without masses and tenderness. Resp: Unlabored. Lungs clear to auscultation bilaterally. Musculoskeletal: Patient on exam has significant tenderness to palpation of the medial aspect of the right knee with mild swelling noted and no ecchymosis. Patient has significant decreased range of motion in flexion of the right knee. Patient was unable to tolerate Tony test. Extremities: No cyanosis,clubbing or edema. Skin: Warm and Dry. Progress Results/Orders Results/Orders Orders - MYA DAVID PAC Knee, Complete (02/14/25 16:42) Completed Orders - MYA DAVID PAC Knee, Complete (02/14/25 16:42) Ketorolac Trometh 30mg/Ml Vial (Toradol (02/14/25 16:22) Medications Received in ER Medications (Trade) Dose Ordered Sig/Zaida Route PRN Reason Start Time Stop Time Status Last Admin Dose Admin (Toradol inj. 30mg/ml) 30 mg ONCE STAT IM 02/14/25 16:22 02/14/25 16:26 DC 02/14/25 19:36 30 MG Vital Signs 02/14/25 15:53 Temp 97.6 Pulse 106 Resp 18 B/P (MAP) 146/101 Pulse Ox 97 O2 Flow Rate 0 EKG/XRAY/CT/US/VASC/MRI Bone/Soft Tissue X-Ray (Ext.) : Additional Comment X-ray of right knee interpreted by myself today and shows no sign of dislocation or fracture, bones in anatomic alignment, no joint space narrowing. Possible small joint effusion. DIAGNOSTIC RADIOLOGY Patient: CRUZITO GUERRA Medical Record: [id number] ELIZABETH HEBRON : 1970, Age: 54 Sex: Male Location: ER Patient Status: REG ER Service Date/Time: 02/14/25/ 1642 Ordering Physician: MYA DAVID PAC Exam: KNEE, COMP 4 VW MIN EXAM: DI KNEE, COMP 4 VW MIN HISTORY: right knee pain/injury COMPARISON: DI KNEE, COMP 4 VW MIN on DOS: 01/12/25 TECHNIQUE: 3 views of the right knee were performed. FINDINGS: No acute fracture is identified about the right knee. No significant joint space narrowing. There may be a small joint effusion. IMPRESSION: No fracture or joint space narrowing of the right knee. 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 Patient states he does have previous history of meniscal tear of his left knee and states this right knee feels very similar and also much more severe. Patient states he needs something for the pain. He has no other concern or complaint at this time. Does admit to previously having had a Toradol shot. Patient was given Toradol 30 mg IM as well as [place] 10/325 mg one tab 3 times a day for five days sent to patient's pharmacy as well as meloxicam 15 mg one tab once a day to be taken with food. Patient will follow up with primary care for referral for MRI and accounts receivable specialist. Return to ED with any worsening, concerning or changing symptoms. Departure Disposition: HOME / SELF CARE / HOMELESS Impression: Primary Impression: Knee pain Qualified Codes: M25.561 - Pain in right knee Condition: Stable Discharge Instructions: Acute Knee Pain, Adult Additional Instructions: Patient was given Toradol 30 mg IM as well as [place] 10/325 mg one tab 3 times a day for five days sent to patient's pharmacy as well as meloxicam 15 mg one tab once a day to be taken with food. Patient will follow up with primary care for referral for MRI and accounts receivable specialist. Return to ED with any worsening, concerning or changing symptoms. Referrals: NO PRIMARY CARE PROVIDER (PCP) Prescriptions Hydrocodone Bit/Acetaminophen (Hydrocodone-Apap 10-325 Tablet) 10mg/325mg Tablet 1 TAB PO TID PRN PRN for pain for 5 Days, #15 TAB Prov: MYA DAVID 02/14/25 Meloxicam (Meloxicam) 15 Mg Tablet 1 TAB PO DAILY for 15 Days, #15 TAB 0 Refills Prov: MYA DAVID 02/14/25 Signature Scribe Signature: No scribe Attestation: No scribe MYA DAVID Feb 14, 2025 16:21
--- NOTE | 2025-02-14 16:52 | RADIOLOGY REPORT ---
EXAM: DI KNEE, COMP 4 VW MIN HISTORY: right knee pain/injury COMPARISON: DI KNEE, COMP 4 VW MIN on DOS: 01/12/25 TECHNIQUE: 3 views of the right knee were performed. FINDINGS: No acute fracture is identified about the right knee. No significant joint space narrowing. There may be a small joint effusion. IMPRESSION: No fracture or joint space narrowing of the right knee.
[2025-02-14] MEDS ORDERED: MELO-102 PO (18:59)
[2025-02-14] MEDS ORDERED: HYDR-3973 PO (18:59)
[2025-02-14] MEDS: ketorolac trometh 30MG/ML vial 30 MG/ML VIAL IM STA (19:36)
== END 2025-02-14 19:51 | disposition home or self-care (01) ==
LOC: ER 15:46
DX: M25.561 Pain in right knee (principal); F32.A Depression, unspecified; F41.9 Anxiety disorder, unspecified; I10 Essential (primary) hypertension; W21.01XA Struck by football, initial encounter; Y93.89 Activity, other specified; Y92.89 Other specified places as the place of occurrence of the external cause; Y99.8 Other external cause status
CPT/HCPCS: 73564; 96372; 99283; J1885

== ENCOUNTER 2025-02-16 12:49 | Outpatient (CLI) | payer MEDICAID ==
[~2025-02-16 12:49] MED LIST changes: +HYDR-3973 PO; +MELO-102 PO
--- NOTE | 2025-02-16 13:53 | RADIOLOGY REPORT ---
EXAM: MR MRI LOWER EXTREMITY RIGHT HISTORY: UNSPECIFIED INJURY OF RIGHT LOWER LEG, SEQUELA COMPARISON: None TECHNIQUE: Multiplanar, multisequence imaging of the right knee was performed without contrast FINDINGS: MEDIAL COMPARTMENT: Complex tearing of the central body of the medial meniscus with slight medial meniscal extrusion and volume loss. Subchondral edema of the medial femoral condyle with likely overlying chondrosis. LATERAL COMPARTMENT: Intact lateral meniscus. No focal chondrosis or subchondral edema. PATELLOFEMORAL COMPARTMENT: No focal chondrosis or subchondral edema. CRUCIATE LIGAMENTS: Intact anterior and posterior cruciate ligaments. MEDIAL SUPPORTING STRUCTURES: Intact medial collateral ligament. LATERAL SUPPORTING STRUCTURES: Intact iliotibial band, lateral capsular ligament, fibular collateral ligament, popliteus, and biceps femoris tendons EXTENSOR MECHANISM: Intact JOINT SPACE/FLUID: Trace knee joint effusion. Trace De La O's cyst. Subcutaneous adipose tissue edema. BONES: No acute fracture, osseous contusion, or aggressive focal osseous lesion MUSCLES: Normal in signal intensity and morphology NEUROVASCULAR: Unremarkable OTHER: None IMPRESSION: 1. Complex tearing of the central body of the medial meniscus with slight medial meniscal extrusion and volume loss. 2. Subchondral edema of the medial femoral condyle with likely overlying chondrosis.
== END 2025-02-16 23:59 | disposition home or self-care (01) ==
LOC: MRI02 12:49
PROVIDERS: ATTEND Family Medicine
DX: S83.231D Complex tear of medial meniscus, current injury, right knee, subsequent encounter (principal); S89.91XD Unspecified injury of right lower leg, subsequent encounter; R60.0 Localized edema; X58.XXXD Exposure to other specified factors, subsequent encounter
CPT/HCPCS: 73721

== ENCOUNTER 2025-02-24 19:10 | Emergency (ER) | payer MEDICAID ==
[~2025-02-24] VITALS: Ht 182.9 cm; Wt 124.3 kg
[~2025-02-24 19:10] MED LIST changes: -HYDR-3973 PO
[2025-02-24 19:18] VITALS: BP 147/114; PULSE 90; TEMP 98.6; O2SAT 99
[2025-02-24] MEDS ORDERED: HYDR-3972 PO (22:25)
--- NOTE | 2025-02-24 22:27 | Physician Documentation ---
History of Present Illness ~ Chief Complaint: Knee Pain Stated Complaint: R KNEE PAIN Time Seen by MD: 22:17 Primary Medical Doctor: mireya Source: patient Mode of Arrival: EMS, Wheelchair Exam Limitations: no limitations HPI 54-year-old male with knee injury was evaluated in the emergency department seen by primary care and had a recent MRI showing a meniscal tear requiring surgery. 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 Patient is in significant pain in his requesting pain medications until he can have the straightened out by his provider. Tetanus witin 5 years: No Medication Reconciliation Allergies: Coded Allergies: No Known Allergies (Unverified , 02/24/25) Scheduled Atorvastatin Calcium (Atorvastatin Calcium), 20 MG PO DAILY Bupropion HCl (Bupropion Xl), 1 TAB PO QAM Meloxicam (Meloxicam), 1 TAB PO DAILY Prazosin Hcl (Prazosin Hcl), 1 CAP PO HS Quetiapine Fumarate (Quetiapine Fumarate), 400 MG PO HS Quetiapine Fumarate (Quetiapine Fumarate), 50 MG PO DAILY Venlafaxine Hcl* (Effexor*), 75 MG PO BID Ziprasidone Hcl (Ziprasidone Hcl), 40 MG PO BID Scheduled PRN Hydrocodone Bit/Acetaminophen (Hydrocodon-Acetaminophn 10-325 tablet), 1 TAB PO TID PRN PRN for pain Hydroxyzine HCl (Hydroxyzine HCl), 1 TAB PO BID PRN for for anxiety/agitation, (Reported) Miscellaneous Medications [Hydrochlorothiazide], 12.5 MG PO, (Reported) Discontinued Medications Hydrocodone Bit/Acetaminophen (Hydrocodone-Apap 10-325 Tablet), 1 TAB PO TID PRN PRN for pain Discontinued Reason: Auto Discontinued Past Medical History Past Medical History: Hypertension, *MUSCULOSKELETAL*, Anxiety, Depression Past Surgical History: orthopedic surgeries 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 HEENT: moist mucous membranes. Neck: Full range of motion. Respiratory: No respiratory distress speaking in full sentences Chest: No accessory muscle use. Cardiovascular: Appears well perfused Neurologic: Oriented x4. Psychiatric: Normal mood and affect. Skin: Normal color, warm and dry. No edema, no ecchymosis. Progress Results/Orders Results/Orders Completed Orders - MIRIAM PORTER NP Hydrocodone/Apap 10/325 ([place] 10/325mg (02/24/25 22:30) Medications Received in ER Medications (Trade) Dose Ordered Sig/Zaida Route PRN Reason Start Time Stop Time Status Last Admin Dose Admin ([place] 10/325mg tab) 2 tab ONCE ONCE PO 02/24/25 22:30 02/24/25 22:31 DC 02/24/25 22:34 2 TAB Vital Signs 02/24/25 19:18 Temp 98.6 Pulse 90 B/P (MAP) 147/114 Pulse Ox 99 Medical Decision Making Additional information obtaine: old records Findings Patient requesting pain medication until he can straight now pain management with his provider due to meniscal injury status post trauma. Reviewed ER documentation and MRI done outpatient indicating meniscal tear. Medications prescribed patient to follow up with primary General Diff Dx:Considerations: Unlikely: Abrasion, Contusion, Fracture, Hematoma, Laceration, Malunion, Neurovascular injury, Open fracture, Sprain, Ulcer, Other Knee Diff Dx:Considerations: Include: Meniscus injury Ankle Diff Dx:Considerations: Unlikely: Abrasion, Arthritis, Contusion, DJD, Fr acture-metatarsal, Fracture-fibula, Fracture-tarsal, Fracture-tibia, Gout, Hematoma, Laceration, Malunion, Neurovascular injury, Nonunion, Open fracture, Osteomyelitis, Rheumatoid arthritis, Sprain, Septic, Ulcer, Other Foot Diff Dx:Considerations: Unlikely: Abrasion, Arthritis, Cellulitis, Contusion, Dislocation, DJD, Fracture-metatarsal, Fracture-phalynx, Fracture- tarsal, Gout, Hematoma, Ingrown toenail, Laceration, Malunion, Neurovascular injury, Open fracture, Paronychia, Puncture, Rheumatoid, Sprain, Septic, Subungual hematoma, Ulcer, Other Toe Diff Dx:Considerations: Unlikely: Abrasion, Cellulitis, Contusion, Dislocation, Felon, Fracture, Hematoma, Laceration, Neurovascular injury, Open fracture, Paronychia, Subungual hematoma, Other Departure Time of Disposition: 22:23 Disposition: HOME / SELF CARE / HOMELESS Impression: Primary Impression: Knee pain Condition: Stable Discharge Instructions: Acute Knee Pain, Adult Additional Instructions: Follow up with primary care for further pain management as well as continuation with referral and orthopedic evaluation and surgery. Referrals: NO PRIMARY CARE PROVIDER (PCP) Prescriptions Hydrocodone Bit/Acetaminophen (Hydrocodon-Acetaminophn 10-325 tablet) 10mg- 325mg Tablet 1 TAB PO TID PRN PRN for pain for 5 Days, #15 TAB Prov: MIRIAM PORTER NP 02/24/25 Education Educated: Patient Educated regarding: diagnosis, treatment, need for follow up Signature Scribe Signature: No scribe Attestation: The note accurately reflects work and decisions made by me.Miriam CALDERON 02/24/25 22:26 MIRIAM PORTER NP Feb 24, 2025 22:26
[2025-02-24] MEDS: HYDROcodone/acetaminophen 10/325mg tab PO ONE (22:34)
== END 2025-02-24 22:38 | disposition home or self-care (01) ==
LOC: ER 19:11
DX: M25.561 Pain in right knee (principal); F32.A Depression, unspecified; F41.9 Anxiety disorder, unspecified; I10 Essential (primary) hypertension; F10.90 Alcohol use, unspecified, uncomplicated; Y90.9 Presence of alcohol in blood, level not specified
CPT/HCPCS: 99283

== ENCOUNTER 2025-03-07 19:11 | Emergency (ER) | payer MEDICAID ==
[~2025-03-07] VITALS: Ht 172.7 cm; Wt 126.5 kg
[2025-03-07] MEDS ORDERED: HYDR-3973 PO (22:53)
--- NOTE | 2025-03-07 22:55 | Physician Documentation ---
History of Present Illness ~ Chief Complaint: Knee Pain Stated Complaint: R KNEE PAIN Time Seen by MD: 19:50 OK to notify your PCP?: Yes [facility] Source: patient Mode of Arrival: POV Exam Limitations: no limitations HPI Mr. Huffman is a 54 y/o male who presents with c/o right knee pain. 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 He states that he has had an MRI and has a torn ACL requiring surgery. He is awaiting insurance approval to proceed with scheduling. He is here tonight as he is still in pain and has run out of his pain meds. He was here on the and 25 February and received [place] 10/325 x 15 each visit. No new trauma. Tetanus witin 5 years: No Medication Reconciliation Allergies: Coded Allergies: No Known Allergies (Unverified , 02/24/25) Scheduled Atorvastatin Calcium (Atorvastatin Calcium), 20 MG PO DAILY Bupropion HCl (Bupropion Xl), 1 TAB PO QAM Meloxicam (Meloxicam), 1 TAB PO DAILY Prazosin Hcl (Prazosin Hcl), 1 CAP PO HS Quetiapine Fumarate (Quetiapine Fumarate), 400 MG PO HS Quetiapine Fumarate (Quetiapine Fumarate), 50 MG PO DAILY Venlafaxine Hcl* (Effexor*), 75 MG PO BID Ziprasidone Hcl (Ziprasidone Hcl), 40 MG PO BID Scheduled PRN Hydroxyzine HCl (Hydroxyzine HCl), 1 TAB PO BID PRN for for anxiety/agitation, (Reported) Miscellaneous Medications [Hydrochlorothiazide], 12.5 MG PO, (Reported) Discontinued Medications Hydrocodone Bit/Acetaminophen (Hydrocodon-Acetaminophn 10-325 tablet), 1 TAB PO TID PRN PRN for pain Discontinued Reason: Auto Discontinued Past Medical History Past Medical History: Hypertension, *MUSCULOSKELETAL*, Anxiety, Depression Past Surgical History: orthopedic surgeries 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 HEENT: NC/AT. PERRLA. No scleral icterus. MMM. No oral lesions. NECK: Supple. No JVD. CHEST: RRR. No M/G/T. LUNGS: CTA B. No W/R/R. ABD: Soft. NTND. + BS. No rebounding or guarding. BACK: No CVA TTP. EXT: No c/c/e. NEURO: Alert and oriented x 4. Cooperative. Sensorimotor intact x 4 extremities. Progress Results/Orders Results/Orders Vital Signs 03/07/25 19:34 Temp 97.8 Pulse 106 Resp 18 B/P (MAP) 124/90 Pulse Ox 96 O2 Flow Rate 0 Medical Decision Making Additional information obtaine: old records Findings While here in the ED, he remained hemodynamically normal with ABC's intact and in NAD. He is afebrile and nontoxic. I have low clinical concern that this is an acute septic joint. Imaging also not required as there are no reports of a new injury. He has established follow-up. I will give himn a dose of pain meds tonight but will also inform him that he needs to follow-up with either his PCP or surgeon as the ED does not typically refill narcotic pain meds. He was given follow-up and return instructions. He voiced understanding and agreement with d/c instructions. General Diff Dx:Considerations: Unlikely: Abrasion, Contusion, Fracture, Hematoma, Laceration, Malunion, Neurovascular injury, Open fracture, Sprain, Ulcer, Other Knee Diff Dx:Considerations: Include: Arthritis, Contusion, Fracture-femur, Fracture-fibula, Fracture-patella, Fracture-tibia, Meniscus injury, Neurovascular injury, Rheumatoid arthritis, Septic, Sprain, Sprain-MCL, Sprain- LCL, Sprain-ACL, Sprain-PCL Ankle Diff Dx:Considerations: Unlikely: Abrasion, Arthritis, Contusion, DJD, Fracture-metatarsal, Fracture-fibula, Fracture-tarsal, Fracture-tibia, Gout, Hematoma, Laceration, Malunion, Neurovascular injury, Nonunion, Open fracture, Osteomyelitis, Rheumatoid arthritis, Sprain, Septic, Ulcer, Other Foot Diff Dx:Considerations: Unlikely: Abrasion, Arthritis, Cellulitis, Contusion, Dislocation, DJD, Fracture-metatarsal, Fracture-phalynx, Fracture- tarsal, Gout, Hematoma, Ingrown toenail, Laceration, Malunion, Neurovascular injury, Open fracture, Paronychia, Puncture, Rheumatoid, Sprain, Septic, Subungual hematoma, Ulcer, Other Toe Diff Dx:Considerations: Unlikely: Abrasion, Cellulitis, Contusion, Dislocation, Felon, Fracture, Hematoma, Laceration, Neurovascular injury, Open fracture, Paronychia, Subungual hematoma, Other Departure Disposition: 01 HOME / SELF CARE / HOMELESS Impression: Primary Impression: Knee pain Condition: Improved Discharge Instructions: Acute Knee Pain, Adult Referrals: NO PRIMARY CARE PROVIDER (PCP) Prescriptions Hydrocodone Bit/Acetaminophen (Hydrocodone-Apap 10-325 Tablet) 10mg/325mg Tablet 1 TAB PO Q12H PRN PRN for pain for 5 Days, #10 TAB Prov: WALKER JIMENEZ MD 03/07/25 Comments Take medications as prescribed. Follow-up with your physician and return to the Emergency Department if there are any additional concerns. Education Educated: Patient Educated regarding: diagnosis, treatment Signature Scribe Signature: N/A Attestation: N/A WALKER JIMENEZ MD Mar 07, 2025 22:55
[2025-03-07] MEDS: HYDROcodone/acetaminophen 10/325mg tab PO ONE (23:00)
[2025-03-07 23:05] VITALS: BP 120/80; PULSE 99; RESP 18; TEMP 98.6; O2SAT 99
== END 2025-03-07 23:06 | disposition home or self-care (01) ==
LOC: ER 19:12
DX: M25.561 Pain in right knee (principal); I10 Essential (primary) hypertension; F41.9 Anxiety disorder, unspecified; F32.A Depression, unspecified; Z56.0 Unemployment, unspecified; Z79.899 Other long term (current) drug therapy; Z98.890 Other specified postprocedural states
CPT/HCPCS: 99283

== ENCOUNTER 2025-05-08 21:57 | Emergency (ER) | payer MEDICAID ==
[~2025-05-08] VITALS: Ht 172.7 cm; Wt 112.0 kg
--- NOTE | 2025-05-08 23:39 | Physician Documentation ---
History of Present Illness ~ Chief Complaint: Anxiety Stated Complaint: ALOC Time Seen by MD: 23:32 Primary Medical Doctor: [facility] HPI Patient is a very pleasant 54-year-old gentleman that presents to the emergency department for sadness associated with significant anxiety. Patient reports that he misses his family. Patient was not specific about why he misses his family upon questioning. Patient reports that he does not want to be here he wants to go home. Discussed with the patient that we are here to help him if he needs help. Asked the patient if he feels like he is going to harm himself or anyone else at this time he states that he has not. Patient reports repeatedly that he just wants to go home. [facility] Patient has a physician that he will follow up with. Discussed with the patient that we are happy to see him if he changes his mind to please come back and see us here in the emergency department we are always happy to help him. Medication Reconciliation Allergies: Coded Allergies: No Known Allergies (Unverified , 02/24/25) Scheduled Atorvastatin Calcium (Atorvastatin Calcium), 20 MG PO DAILY Bupropion HCl (Bupropion Xl), 1 TAB PO QAM Hydroxyzine Hcl (Atarax), 1 TAB PO Q12H Meloxicam (Meloxicam), 1 TAB PO DAILY Prazosin Hcl (Prazosin Hcl), 1 CAP PO HS Quetiapine Fumarate (Quetiapine Fumarate), 400 MG PO HS Quetiapine Fumarate (Quetiapine Fumarate), 50 MG PO DAILY Venlafaxine Hcl* (Effexor*), 75 MG PO BID Ziprasidone Hcl (Ziprasidone Hcl), 40 MG PO BID Scheduled PRN Hydroxyzine HCl (Hydroxyzine HCl), 1 TAB PO BID PRN for for anxiety/agitation, (Reported) Miscellaneous Medications [Hydrochlorothiazide], 12.5 MG PO, (Reported) Past Medical History Past Medical History: Hypertension, *MUSCULOSKELETAL*, Anxiety, Depression Past Surgical History: orthopedic surgeries 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 Physical Exam Vital Signs: Temperature: 98.1, Heart Rate: 94, Respiratory Rate: 16, BP: 152/100, Pulse Oximetry: 98, Weight: 112.000 Oxygen Flow Rate: 0 Physical Exam VITALS: Reviewed and as above. GENERAL: Alert, tearful. HEENT: Normocephalic, atraumatic, PERRL, EOMI, dry mucosa, no erythema RESPIRATORY: Lungs clear, normal breath sounds, no respiratory distress. CHEST: No accessory muscle use, no retractions CV: Regular rate, rhythm, no edema, no murmur, No: JVD GI: Soft, non-tender, bowels sounds present, no rebound, guarding, or rigidity BACK: No CVA tenderness, or swelling MUSCULOSKELETAL No deformities, no edema SKIN: Warm and dry, no rash NEURO: Oriented x4, No motor or sensory deficit PSYCH: Patient appears sad and tearful, no agitation noted. Progress Results/Orders Results/Orders Orders - JUANA KIRKLAND LINEMAN Hydroxyzine Tablet (Atarax Tablet) (05/08/25 23:45) Vital Signs 05/08/25 23:12 Temp 98.1 Pulse 94 Resp 16 B/P (MAP) 152/100 Pulse Ox 98 O2 Flow Rate 0 Medical Decision Making Additional information obtaine: other Findings Chief Complaint: Sadness and anxiety History of Present Illness: 54-year-old male presenting to the emergency department with sadness and significant anxiety. Patient reports missing his family, though unable to provide specific details when questioned. Patient repeatedly expressed desire to return home. Risk Assessment: Comprehensive suicide risk assessment performed. Patient denies current suicidal ideation, plan, or intent. Patient denies homicidal ideation. No evidence of acute psychosis, zachary, or severe psychiatric decompensation. Patient demonstrates capacity for medical decision-making and expresses clear preference for discharge. [1-2] Medical Decision Making: This is a low-complexity medical decision involving an established patient with anxiety and depressive symptoms without acute safety concerns. Number and Complexity of Problems Addressed: One problem of low severity - anxiety and sadness without suicidal ideation or acute psychiatric emergency. Amount and Complexity of Data: Vital signs reviewed and stable. Patient's mental status examination notable for anxious and sad affect but cooperative behavior, intact reality testing, and no evidence of acute danger to self or others. Risk of Complications: The risk of discharge is assessed as low based on the following factors: [1-2] Absence of suicidal ideation, plan, or intent No history of recent suicide attempts documented in this encounter Hemodynamically stable with normal vital signs Established outpatient physician for follow-up care Patient demonstrates insight and expresses desire to leave No acute psychotic symptoms or severe psychiatric decompensation The [employer] guidelines support that suicide risk assessment should incorporate psychiatric assessment and clinical judgment, taking patient, family, and community factors into account, rather than relying solely on risk-assessment tools. [1] Disposition: Patient discharged home with instructions to follow up with established physician. Patient counseled regarding return precautions including worsening anxiety, development of suicidal thoughts, or inability to care for self. Patient verbalized understanding and agreement with discharge plan. Patient encouraged to return to emergency department at any time if symptoms worsen or if he develops concerning thoughts about harming himself or others. Follow-up: Outpatient follow-up with established physician as arranged. Differential Dx:Considerations: Include: Alcohol abuse, Anxiety, Bipolar disorder, Conversion disorder, Depression, Encephaloathy, Homicidal, Panic disorder, Personality disorder, Schizophrenia, Substance abuse, Suicidal, Other Departure Disposition: 01 HOME / SELF CARE / HOMELESS Impression: Primary Impression: Anxiety Additional Impression: Emotional distress Condition: Stable Discharge Instructions: Emotional Crisis Additional Instructions: DISCHARGE INSTRUCTIONS Your Visit Today: You came to the emergency department today for sadness and anxiety. You were evaluated and found to be safe to go home. What to Do at Home: Follow-Up Care: Follow up with your doctor as soon as possible, ideally within 7 days Keep all scheduled appointments If you don't have an appointment scheduled, call your doctor's office to make one Self-Care: Get adequate sleep (7-9 hours per night) Eat regular, healthy meals Avoid alcohol and recreational drugs, as these can worsen anxiety and depression Try to stay active and engage in activities you normally enjoy Reach out to family and friends for support When to Return to the Emergency Department: Return immediately or call 911 if you: Have thoughts of hurting yourself or others Feel you cannot keep yourself safe Experience worsening anxiety or sadness that you cannot manage Feel unable to care for yourself Crisis Resources Available 02/12: 988 Suicide and Crisis Lifeline: Call or text 988 Crisis Text Line: Text HOME to 100506 National Suicide Prevention Lifeline: Important Reminders: We are here to help you anytime - please come back if you need us Your feelings matter and help is available Recovery takes time, and it's okay to ask for support Referrals: NO PRIMARY CARE PROVIDER (PCP) Education Educated: Patient Educated regarding: diagnosis, treatment, need for follow up Signature Scribe Signature: A Attestation: Scribed for Juana Kirkland by [facility]UM[facility] . 05/08/25 23:46 JUANA KIRKLAND May 08, 2025 23:39
[2025-05-08] MEDS ORDERED: HYDR-3686 PO (23:40)
[2025-05-08 23:56] VITALS: BP 150/99; PULSE 90; RESP 20; TEMP 98.9; O2SAT 99
== END 2025-05-08 23:58 | disposition home or self-care (01) ==
LOC: ER 21:57
DX: F41.9 Anxiety disorder, unspecified (principal); F32.A Depression, unspecified; I10 Essential (primary) hypertension; Z56.0 Unemployment, unspecified; Z79.899 Other long term (current) drug therapy; Z88.8 Allergy status to other drugs, medicaments and biological substances; Z98.890 Other specified postprocedural states
CPT/HCPCS: 99283; Q0177

== ENCOUNTER 2025-05-11 22:35 | Emergency (ER) | payer MEDICAID ==
[~2025-05-11] VITALS: Ht 172.7 cm; Wt 135.9 kg
[2025-05-11 22:48] VITALS: BP 142/95; PULSE 115; RESP 18; O2SAT 94
--- NOTE | 2025-05-11 23:36 | Physician Documentation ---
History of Present Illness ~ Chief Complaint: Depression Stated Complaint: JI BRADLEY Time Seen by MD: 23:01 Primary Medical Doctor: [facility] This is a 54-year-old male who presents requesting assistance with processing feelings of depression and grief after his several years ago, patient reports that he has not seen a mental health professional for this and feelings are disturbing his daily life though he reports no difficulty sleeping or feelings of anxiety. Patient reports no suicidal ideation or homicidal ideation. Patient reports no physical symptoms and reports no other acute symptoms or concerns. Medication Reconciliation Allergies: Coded Allergies: No Known Allergies (Unverified , 02/24/25) Scheduled Atorvastatin Calcium (Atorvastatin Calcium), 20 MG PO DAILY Bupropion HCl (Bupropion Xl), 1 TAB PO QAM Meloxicam (Meloxicam), 1 TAB PO DAILY Prazosin Hcl (Prazosin Hcl), 1 CAP PO HS Quetiapine Fumarate (Quetiapine Fumarate), 400 MG PO HS Quetiapine Fumarate (Quetiapine Fumarate), 50 MG PO DAILY Venlafaxine Hcl* (Effexor*), 75 MG PO BID Ziprasidone Hcl (Ziprasidone Hcl), 40 MG PO BID Scheduled PRN Hydroxyzine HCl (Hydroxyzine HCl), 1 TAB PO BID PRN for for anxiety/agitation, (Reported) Miscellaneous Medications [Hydrochlorothiazide], 12.5 MG PO, (Reported) Past Medical History Past Medical History: Hypertension, *MUSCULOSKELETAL*, Anxiety, Depression Past Surgical History: orthopedic surgeries 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 Physical Exam Vital Signs: Temperature: 98.6, Source: Oral, Heart Rate: 115, Respiratory Rate: 18, BP: 142/95, Pulse Oximetry: 94, Weight: 135.900 Physical Exam VITALS: Reviewed and as above. GENERAL: Alert, nontoxic appearing, no apparent distress. RESPIRATORY: No increased work of breathing, no respiratory distress, speaking in full clear sentences PSYCH: Flat mood and affect, no statements of HI or SI Progress Results/Orders Results/Orders Vital Signs 05/11/25 05/11/25 22:48 23:46 Temp 98.6 98.6 Pulse 115 Resp 18 B/P (MAP) 142/95 Pulse Ox 94 Medical Decision Making Additional information obtaine: N/A Findings This 54-year-old male presented requesting assistance processing feelings of grief and depression after the of his , reassuringly patient reported no suicidal ideation or homicidal ideation, additionally patient appears able to care for himself. Patient does not meet criteria for 1799 hold. I had a very lengthy conversation with the patient about the feelings he is experiencing. Given his symptoms patient would benefit from establishing with a mental health clinician for counseling and possibly medication for generalized depression, at this time as patient reports no feelings of anxiety or inability to sleep me dications that are able to be prescribed from the emergency department or not indicated. Patient will require follow up with mental health clinician. Patient is otherwise well-appearing and appropriate for outpatient follow up. Patient provided follow up instructions and careful return to care precautions which he verbalized understanding of. Differential Dx:Considerations: Include: Alcohol abuse, Anxiety, Bipolar disorder, Conversion disorder, Depression, Encephaloathy, Homicidal, Panic disorder, Personality disorder, Schizophrenia, Substance abuse, Suicidal Departure Time of Disposition: 23:39 Disposition: 01 HOME / SELF CARE / HOMELESS Impression: Primary Impression: Complicated bereavement Condition: Improved Discharge Instructions: Depression, Adult Additional Instructions: You would benefit from establishing with a mental health professional for management of your feelings you have expressed to me today. Please follow up with your primary care provider in the next few days. Please return to the emergency department for any new or worsening concerning symptoms. Some resources you may try are [facility] or [facility] as they provide mental health services. You may also consider contacting your insurance provider to find out mental health conditions in your network. Referrals: NO PRIMARY CARE PROVIDER (PCP) Education Educated: Patient Educated regarding: diagnosis, treatment, prognosis, need for follow up Signature Scribe Signature: No scribe Attestation: The note accurately reflects work and decisions made by me.YUMIKO Ordonez 05/11/25 23:42 ROSENDO RIVERO May 11, 2025 23:36
[2025-05-11 23:46] VITALS: TEMP 98.6
== END 2025-05-11 23:56 | disposition home or self-care (01) ==
LOC: ER 22:35
DX: F32.A Depression, unspecified (principal); I10 Essential (primary) hypertension; F41.9 Anxiety disorder, unspecified; Z56.0 Unemployment, unspecified; Z79.899 Other long term (current) drug therapy; Z98.890 Other specified postprocedural states; Z63.4 Disappearance and death of family member
CPT/HCPCS: 99282